=== PATIENT | female | born 1980 | race Caucasian/White ===

== ENCOUNTER 2020-07-25 08:30 | Emergency (ER) | payer OTHER, SELFPAY ==
--- NOTE | 2020-07-25 08:46 | ED_ITS ---
HPI - URI/Sore Throat General Chief Complaint: General Medical Stated Complaint: covid symptoms Time Seen by Provider: 07/25/20 08:45 Source: patient Mode of arrival: ambulatory History of Present Illness HPI Narrative: 40-year-old female with a past medical history of migraines, constipation, presenting to ED complaining of low-grade fever T-max a 100.5?, left ear pain, sore throat, rhinorrhea since yesterday. Also reports dry cough. Denies SOB/CP, sick contacts, nausea/vomiting, LE edema, hearing loss, drainage from ear MD elicited complaint: fever, cough, sore throat, rhinorrhea and nasal baldemar estion Related Data Home Medications Medication Instructions Recorded Confirmed levonorgestrel 20 mcg/24 hours (6 INTRAUTERINE 06/27/20 06/28/20 yrs) 52 mg intrauterine device metformin 500 mg tablet 500 mg PO BID 06/27/20 06/28/20 Previous Rx's Medication Instructions Recorded amitriptyline 25 mg tablet 25 mg PO BEDTIME 90 Days #90 tab 06/27/20 sennosides 8.6 mg-docusate sodium 2 tab-cap PO BEDTIME PRN 30 Days 06/27/20 50 mg capsule #30 cap amoxicillin-pot clavulanate 1 tab PO Q12H 7 Days #14 tab 07/25/20 [Augmentin] Allergies Allergy/AdvReac Type Severity Reaction Status Date / Time shellfish derived Allergy Intermediate HIVES Verified 06/25/20 08:47 [SHELLFISH DERIVED] Review of Systems Review of Systems: Constitutional: No Weight loss, + Fever, +Chills ENT/Mouth: + Ear Pain, + Nasal Congestion, No Sinus Pain, No Hoarseness, + sore throat, + Rhinorrhea, No Swallowing Difficulty Cardiovascular: No Chest Pain, No SOB Respiratory: + Cough, No Sputum, No Wheezing Gastrointestinal: No Nausea, No Vomiting, No Diarrhea, No Constipation, No Abdominal pain Musculoskeletal: No joint pain, + Myalgias, No Joint Swelling Skin: No Skin Lesions, No rash Neuro: No Weakness, No Numbness, No Paresthesias Yes all other systems are reviewed and are negative [facility] Past Medical History Attestation statement: The following information was validated with the patient. Medical History (Updated 07/25/20 @ 09:06 by Haider Lan) Constipation by delayed colonic transit Diabetes mellitus, type 2 Encounter to establish care Headache syndrome Surgical History History of ovarian cyst Family History Family History Father HTN (hypertension) CVD (cardiovascular disease) Diabetes mellitus HIV (human immunodeficiency virus infection) Hx of CABG Mother No problems noted. Brother No problems noted. Sister No problems noted. Son Neuroblastoma Social History Social History Alcohol intake: never Smoking Status: Never smoker Advance Directives: No Advance Directives Information Provided: No Physical Exam Vital Signs: Vital Signs: Last Vital Signs Temp 99.1 F 07/25/20 09:04 Pulse 96 07/25/20 09:04 Resp 16 07/25/20 09:04 BP 118/77 07/25/20 09:04 Pulse Ox 97 07/25/20 09:04 Body Mass Index 24.7 Const: General: cooperative and healthy appearing Orientation/consciousness: patient oriented x3 Limitations: no limitations HENMT: Head: Yes normal to inspection Ears: TM normal on the right and TM abnormal wth effusion and with fluid behind the TM on the left General nose exam: Normal external nose present Face and sinus: Yes normal facial exam Mouth: Normal oral and palatal mucosa present Throat: Yes uvula midline and No peritonsillar mass Eyes: General: appearance normal, both eyes and all related structures EOM: EOMs intact bilaterally Neck: Neck: Yes normal visual inspection, Yes no lymphadenopathy and Yes no meningeal signs Resp: Effort & Inspection: normal respiratory effort Cardio: Rate: regular rate GI: Inspection: Yes normal to inspection Skin: Rashes: no rashes Wounds: no wounds Neuro: General: patient oriented x3 and no meningeal signs Gait exam (Neuro): Normal gait present Extrem: General: Yes normal to inspection MDM - URI/Sore Throat MDM Narrative Medical decision making narrative: On exam VSS, NAD, nontoxic appearing, +L otitis media. Concern for viral syndrome/COVID19 Discharge Plan Discharge Clinical Impression: Acute viral syndrome Otitis media Qualifiers: Otitis media type: unspecified Chronicity: acute Qualified Code(s): H66.90 - Otitis media, unspecified, unspecified ear Patient Disposition: Home, Self-Care Instructions: Ear Infection (ED), Viral Syndrome (ED) Additional Instructions: You have an inner ear infection Augmentin as antibiotic, take as prescribed In addition continue check her temperatures at home, take Tylenol, fevers not result Tylenol take Motrin Your also tested for COVID-19, you need to self isolate until you obtain results Based on your symptoms and history we have sent a COVID-19. Although your RESULT IS PENDING at this time. RESULTS should return within 72 hours. At this time you will be contacted with either NEGATIVE OR POSITIVE results. -Please wait until we contact you for your results. At this time you will be okay for discharge. Please plan for self quarantine for up to 14 days. Do not expose yourself to others. You may not go to work. If testing does come back negative you may return to activities as long as you are no longer having any symptoms for at least 3 days. Please continue to follow cold instructions and wash your hands frequently. You may take Tylenol as directed on the bottle for pain or fever. Patient seen in the emergency department on 02/10/2020 and should be excused from work until negative test results AND until 72 hours without any symptoms AND at least 10 days have passed since symptoms first appeared or since last exposure to COVID-19 positive patient CDC Guidelines for home isolation: - Stay away from others - WEAR A MASK if you are sick AND STAY HOME - Cover your mouth and nose with a tissue when you cough or sneeze. Dispose of tissues in a lined trash can and wash your hands immediately with soap and water for at least 20 seconds. If soap and water are not available, clean hands with alcohol-based hand black studies professor that contains at least 60% alcohol. - Clean your hands often with soap and water for at least 20 seconds - Avoid touching your eyes, nose and mouth with unwashed hands - Do not share dishes, drinking glasses, cups, eating utensils, towels, or bedding with other people in your home. After using these items, wash them thoroughly with soap and water or put in the talent acquisition director. - Clean high-touch surfaces in your isolation area ( sick room and bathroom) every day; let a caregiver clean and disinfect high-touch surfaces in other areas of the home. Clean the area or item with soap and water or another detergent if it is dirty. Then, use a household disinfectant. - Limit contact with pets and animals: If you must care for a pet, wash your hands before and after interacting with them) Prescriptions: New amoxicillin-pot clavulanate [Augmentin] 875-125 mg tablet 1 tab PO Q12H 7 Days Qty: 14 RF: 0 No Action metformin 500 mg tablet 500 mg PO BID RF: 0 Mirena 20 mcg/24 hours (6 yrs) 52 mg intrauterine device intrauterine RF: 0 amitriptyline 25 mg tablet 25 mg PO BEDTIME 90 Days Qty: 90 RF: 0 Senna Plus 8.6-50 mg capsule 2 tab-cap PO BEDTIME PRN (Reason: constipation) 30 Days Qty: 30 RF: 0 Referrals: Adam Hernandez MD [Primary Care Provider] - 2 days (call)
[2020-07-25 09:04] VITALS: BP 118/77; PULSE 96; RESP 16; TEMP 37.3; O2SAT 97; BMI 24.7
[2020-07-25 11:04] LABS: Influenza A PCR NEGATIVE (Negative); Influenza B PCR NEGATIVE (Negative); Resp Syncy Virus RNA Qual PCR NEGATIVE (Negative); SARS COV2 PCR INHOUSE POSITIVE (Negative)
== END 2020-07-25 10:15 | disposition home or self-care (01) ==
PROVIDERS: Physician Assistant; Emergency Provider Emergency Medicine; PCP Internal Medicine
DX: B34.9 Viral infection, unspecified (principal); Z20.828 Contact with and (suspected) exposure to other viral communicable diseases; H66.92 Otitis media, unspecified, left ear; E11.9 Type 2 diabetes mellitus without complications
CPT/HCPCS: 0241U; 99283; U0003

== ENCOUNTER 2020-09-04 09:24 | Outpatient (REF) | payer OTHER, SELFPAY ==
[2020-09-04 11:37] LABS: MANUAL DIFF FLAG NO
[2020-09-04 11:46] LABS: Basophils Percent Auto 0.4 % (0-2); Eosinophils Absolute Auto 0.1 X10*3/uL (0.0-0.4); Eosinophils Percent Auto 0.7 % (0-4); Hematocrit 35.1 % (37-47); Hemoglobin 11.4 g/dl (12.0-16.0); Imm Gran Abs Auto 0.03 X10*3/uL (0.00-0.03); Imm Gran Pct Auto 0.4 % (0.0-0.4); Lymphocytes Absolute Auto 2.3 X10*3/uL (1.2-4.9); Lymphocytes Percent Auto 27.3 % (20-40); Mean Corpuscular HGB Conc 32.5 g/dl (31.0-35.0); Mean Corpuscular Hemoglobin 29.2 pg (27.0-33.0); Mean Corpuscular Volume 89.8 fL (80-98); Mean Platelet Volume 10.7 fL (9.4-12.3); Monocytes Absolute Auto 0.5 X10*3/uL (0.1-1.2); Monocytes Percent Auto 6.2 % (2-11); Neutrophils Absolute Auto 5.5 X10*3/uL (2.0-8.3); Platelet Count 365 X10*3/uL (160-400); Red Blood Count 3.91 X10*6/uL (4.20-5.50); Red Cell Distribution Width 12.6 % (11.0-16.0); White Blood Count 8.5 X10*3/uL (4.8-10.8)
[2020-09-04 12:17] LABS: Estimated Average Glucose 128 mg/dL; Hemoglobin A1c % 6.1 %
[2020-09-04 13:48] LABS: TSH reflex Free T4 2.54 mIU/mL (0.32-4.0)
== END 2020-09-04 09:25 | disposition home or self-care (01) ==
LOC: HO.HMGCLDS 09:24
PROVIDERS: PCP Internal Medicine; Visit Provider Internal Medicine
DX: E11.9 Type 2 diabetes mellitus without complications (principal); K59.01 Slow transit constipation; G44.89 Other headache syndrome; Z76.89 Persons encountering health services in other specified circumstances
CPT/HCPCS: 36415; 83036; 84443; 85025

== ENCOUNTER 2020-12-03 10:18 | Outpatient (REF) | payer OTHER, SELFPAY ==
[2020-12-03 11:25] LABS: MANUAL DIFF FLAG NO
[2020-12-03 11:36] LABS: Basophils Percent Auto 0.6 % (0-2); Eosinophils Absolute Auto 0.1 X10*3/uL (0.0-0.4); Eosinophils Percent Auto 0.8 % (0-4); Hematocrit 38.1 % (37-47); Hemoglobin 12.2 g/dl (12.0-16.0); Imm Gran Abs Auto 0.01 X10*3/uL (0.00-0.03); Imm Gran Pct Auto 0.2 % (0.0-0.4); Lymphocytes Absolute Auto 1.6 X10*3/uL (1.2-4.9); Lymphocytes Percent Auto 25.4 % (20-40); Mean Corpuscular Hemoglobin 29.1 pg (27.0-33.0); Mean Corpuscular Volume 90.9 fL (80-98); Monocytes Absolute Auto 0.4 X10*3/uL (0.1-1.2); Monocytes Percent Auto 5.7 % (2-11); Neutrophils Absolute Auto 4.3 X10*3/uL (2.0-8.3); Neutrophils Percent Auto 67.3 % (45-73); Platelet Count 363 X10*3/uL (160-400); Red Blood Count 4.19 X10*6/uL (4.20-5.50); Red Cell Distribution Width 13.1 % (11.0-16.0); White Blood Count 6.4 X10*3/uL (4.8-10.8)
[2020-12-03 11:51] LABS: Estimated Average Glucose 111 mg/dL; Hemoglobin A1c % 5.5 %
[2020-12-03 12:05] LABS: Alanine Aminotransferase 17 U/L (0-31); Albumin Level 4.3 g/dL (3.5-5.0); Alkaline Phosphatase 54 U/L (39-117); Anion Gap 16 (12-20); Aspartate Amino Transferase 19 U/L (5-31); Bilirubin Direct 0.2 mg/dL (0.0-0.5); Bilirubin Total 0.6 mg/dL (0.0-1.0); Blood Urea Nitrogen 14 mg/dL (9-16); Calcium 9.3 mg/dL (8.4-10.2); Carbon Dioxide 22 mmol/L (22-29); Chloride 105 mmol/L (96-108); Estimated Glomerular Filt Rate > 60; Glucose Random 136 mg/dL (60-115); Potassium 4.6 mmol/L (3.3-5.1); Sodium 138 mmol/L (135-145); Total Protein 7.6 g/dL (6.5-8.0)
[2020-12-03 12:06] LABS: Microalbum/Creatinine Ratio Ur 3.2 ug/mg cr
[2020-12-03 12:16] LABS: TSH reflex Free T4 1.24 uIU/mL (0.32-4.0)
[2020-12-04 06:07] LABS: LDL Cholesterol Direct 102 mg/dL (<100)
== END 2020-12-03 10:19 | disposition home or self-care (01) ==
LOC: HO.HMGCLDS 10:18
PROVIDERS: PCP Internal Medicine; Visit Provider Internal Medicine
DX: E11.9 Type 2 diabetes mellitus without complications (principal); K59.01 Slow transit constipation; G44.89 Other headache syndrome
CPT/HCPCS: 36415; 80048; 80076; 82043; 83036; 83721; 84443; 85025

== ENCOUNTER 2021-05-02 17:08 | Emergency (ER) | payer OTHER, SELFPAY ==
[2021-05-02 17:19] VITALS: BP 117/73; PULSE 68; RESP 18; TEMP 37.3; O2SAT 100; BMI 24.3
[2021-05-02] MEDS: predniSONE 20 MG TABLET 40 MG PO (20:59)
[2021-05-02] MEDS: Azithromycin 500 MG TABLET PO (21:00)
[2021-05-02] MEDS: Ibuprofen 600 MG TABLET PO (21:00)
--- NOTE | 2021-05-02 21:00 | ED_ITS ---
HPI - Ear Problem General Chief complaint: Ear Problems Stated complaint: ear infection Time Seen by Provider: 05/02/21 20:40 Source: patient Mode of arrival: ambulatory Limitations: no limitations History of Present Illness HPI Narrative: 41 years old female came in for evaluation of left ear pain. Patient with a history of recurrence of ear infections in the past, came in with left ear pain for 2 weeks, patient received a course of antibiotic of amoxicillin with no improvement, patient still feel pressure and pain localized to the left ear with no radiation, no dizziness, no fever, no chills. No recent public pool usage. Related Data Home Medications Medication Instructions Recorded Confirmed levonorgestrel 20 mcg/24 hours (6 INTRAUTERINE 06/27/20 02/07/21 yrs) 52 mg intrauterine device (Mirena) sennosides 8.6 mg-docusate sodium 2 tab PO BEDTIME PRN 01/28/21 02/07/21 50 mg tablet metformin ER 500 mg tablet,ext rel 500 mg PO DAILY 02/07/21 02/07/21 24 hr-blood sugar diagnostic strips Previous Rx's Medication Instructions Recorded metformin 500 mg tablet 500 mg PO BID 90 Days #180 tab 09/04/20 amoxicillin 875 mg-potassium 1 tab PO BID 7 Days #14 tab 01/08/21 clavulanate 125 mg tablet azithromycin 500 mg tablet 500 mg PO DAILY 5 Days #5 tab 01/28/21 prednisone 20 mg tablet 20 mg PO .COMPLEX #18 tab 01/28/21 azithromycin 250 mg tablet See Rx Instructions .ROUTE 05/02/21 (Zithromax Z-Lucio) .COMPLEX #6 tab prednisone 20 mg tablet 20 mg PO BID #10 tab 05/02/21 Allergies Allergy/AdvReac Type Severity Reaction Status Date / Time shellfish derived Allergy Intermediate HIVES Verified 05/02/21 17:18 [SHELLFISH DERIVED] Shellfish Allergy Unknown HIVES Uncoded 02/28/21 11:33 Review of Systems Review of Systems: All other systems are reviewed and are negative Constitutional: Reports as per HPI and Reports no additional constitutional complaints Eyes: Reports as per HPI and Reports no additional eye complaints Reports system reviewed and no additional complaints, except as documented Cardiovascular: Reports as per HPI and Reports no additional cardiovascular complaints Respiratory: Reports as per HPI and Reports no additional respiratory complaints Gastrointestinal: Reports as per HPI and Reports no additional gastrointestinal complaints Genitourinary: Reports no additional female genitourinary complaints Musculoskeletal: Reports no additional musculoskeletal complaints Skin/Breast: Reports system reviewed and no additional complaints, except as docu Psychiatric: Reports no additional psychiatric complaints Endocrine: Reports no additional endocrine complaints Hematologic/Lymphatic: Reports no additional hematologic/lymphatic complaints Allergic/Immunologic: Reports no additional allergic/immunologic complaints Reports system reviewed and no additional complaints, except as documented and Reports Abnormal speech present [facility] Past Medical History Medical History Constipation by delayed colonic transit Diabetes mellitus, type 2 Encounter to establish care Headache syndrome Surgical History History of ovarian cyst Family History Family History Father HTN (hypertension) CVD (cardiovascular disease) Diabetes mellitus HIV (human immunodeficiency virus infection) Hx of CABG Mother No problems noted. Brother No problems noted. Sister No problems noted. Son Neuroblastoma Social History Social History Alcohol intake: never Advance Directives: No Advance Directives Information Provided: No Patient : No Physical Exam Vital Signs: Vital Signs: Last Vital Signs Temp 99.2 F 05/02/21 17:19 Pulse 68 05/02/21 17:19 Resp 18 05/02/21 17:19 BP 117/73 05/02/21 17:19 Pulse Ox 100 05/02/21 17:19 Body Mass Index 24.3 Vital signs have been reviewed as appeared to be correct. Blood pressure normal. Heart rate normal. Respiration rate normal. Temperature normal. Oxygen saturation normal. Appearance: Alert. Oriented X3. No acute distress. Head: Normal external exam. Normocephalic. Atraumatic. No Velazquez signs noted. No raccoon eyes noted Eyes: PERRLA. EOMI. Conjunctiva and sclera normal. Eyelids normal. ENT: Left TM was multiple old scars, erythema, clear external auditory canal, Pharynx normal. Uvula midline. Moist mucous membranes. No trismus noted. No drooling noted. No muffled voice noted. Neck: Normal inspection. Neck supple. FROM. No adenopathy. Thyroid Normal. No meningeal signs. No neck mass noted. CVS: Normal heart rate and rhythm. Heart sound normal. No murmurs noted. Pulses normal throughout. Respiratory: No respiratory distress. Painless inspiration. Breath sounds normal. No wheezes/rales/rhonchi noted. Chest nontender. No accessory muscle usage noted or decreased air movement noted. Abdomen: Soft and nontender. Bowel sounds normal in all 4 quadrants. No distention noted. No organomegaly noted. No visible injury noted. Back: No CVA tenderness. Full range of motion noted. Skin: Skin warm and dry. Normal skin color. Normal skin turgor. No rashes/lesions/lacerations noted. Extremities: No lower extremity edema. Extremities exhibit normal range of motion. Extremities nontender. Neuro: Oriented X 3. Cranial nerve exam: II-XII are grossly intact No motor deficit. No sensory deficit. Reflexes normal. Course Course Course Narrative: Assessment and plan. 41-year-old female who is prone to ear infections in the past came in with left ear pain physical exam is consistent with left ear OM. Patient just finished a course of amoxicillin with no results. Start the patient on a Zithromax/4 days of prednisone. Discharge Plan Discharge Clinical Impression: Otitis media Patient Disposition: Home, Self-Care Instructions: Ear Infection (ED) Prescriptions: New azithromycin [Zithromax Z-Lucio] 250 mg tablet See Rx Instructions .ROUTE .COMPLEX Qty: 6 RF: 0 prednisone 20 mg tablet 20 mg PO BID Qty: 10 RF: 0 No Action Mirena 20 mcg/24 hours (6 yrs) 52 mg intrauterine device intrauterine RF: 0 metformin 500 mg tablet 500 mg PO BID 90 Days Qty: 180 RF: 0 amoxicillin-pot clavulanate 875-125 mg tablet 1 tab PO BID 7 Days Qty: 14 RF: 0 sennosides-docusate sodium 8.6-50 mg tablet 2 tab PO BEDTIME PRN (Reason: constipation) RF: 0 azithromycin 500 mg tablet 500 mg PO DAILY 5 Days Qty: 5 RF: 0 prednisone 20 mg tablet 20 mg PO .COMPLEX Qty: 18 RF: 0 metformin-blood sugar diagnost 500 mg combo pack, tablet and strip 500 mg PO DAILY RF: 0 Referrals: Adam Hernandez MD [Primary Care Provider] - 2 days
== END 2021-05-02 21:32 | disposition home or self-care (01) ==
PROVIDERS: Emergency Provider Emergency Medicine; PCP Internal Medicine
DX: H66.92 Otitis media, unspecified, left ear (principal); H92.02 Otalgia, left ear; Z79.899 Other long term (current) drug therapy
CPT/HCPCS: 99283

== ENCOUNTER 2021-05-13 08:05 | Outpatient (REF) | payer OTHER, SELFPAY ==
[2021-05-13 09:40] LABS: Alanine Aminotransferase 18 U/L (0-31); Albumin Level 4.2 g/dL (3.5-5.0); Alkaline Phosphatase 66 U/L (39-117); Anion Gap 14 (12-20); Aspartate Amino Transferase 17 U/L (5-31); Bilirubin Total 0.8 mg/dL (0.0-1.0); Blood Urea Nitrogen 14 mg/dL (9-16); Calcium 9.8 mg/dL (8.4-10.2); Carbon Dioxide 26 mmol/L (22-29); Chloride 105 mmol/L (96-108); Estimated Glomerular Filt Rate > 60; Glucose Random 151 mg/dL (60-115); Potassium 5.2 mmol/L (3.3-5.1); Sodium 140 mmol/L (135-145); Total Protein 7.6 g/dL (6.5-8.0)
[2021-05-13 09:41] LABS: Estimated Average Glucose 126 mg/dL
== END 2021-05-13 08:06 | disposition home or self-care (01) ==
LOC: HO.LAB 08:05
PROVIDERS: PCP Internal Medicine; Visit Provider Internal Medicine
DX: E11.9 Type 2 diabetes mellitus without complications (principal)
CPT/HCPCS: 36415; 80053; 83036

== ENCOUNTER 2022-02-04 10:18 | Outpatient (REF) | payer OTHER, SELFPAY ==
[2022-02-04 11:58] LABS: Estimated Average Glucose 183 mg/dL
[2022-02-04 13:03] LABS: Alanine Aminotransferase 15 U/L (0-31); Albumin Level 4.1 g/dL (3.5-5.0); Alkaline Phosphatase 84 U/L (39-117); Anion Gap 13 (12-20); Aspartate Amino Transferase 19 U/L (5-31); Bilirubin Total 0.5 mg/dL (0.0-1.0); Blood Urea Nitrogen 11 mg/dL (9-16); Calcium 9.4 mg/dL (8.4-10.2); Carbon Dioxide 23 mmol/L (22-29); Chloride 106 mmol/L (96-108); Estimated Glomerular Filt Rate > 60; Glucose Random 195 mg/dL (60-115); Potassium 5.1 mmol/L (3.3-5.1); Sodium 137 mmol/L (135-145); Total Protein 7.7 g/dL (6.5-8.0)
[2022-02-06 09:17] LABS: LDL Cholesterol Direct 145 mg/dL (<100)
== END 2022-02-04 10:19 | disposition home or self-care (01) ==
LOC: HO.HMGCLDS 10:18
PROVIDERS: PCP Internal Medicine; Visit Provider Internal Medicine
DX: E11.9 Type 2 diabetes mellitus without complications (principal)
CPT/HCPCS: 36415; 80053; 83036; 83721

== ENCOUNTER 2022-10-06 10:57 | Outpatient (REF) | payer OTHER, SELFPAY ==
[2022-10-06 14:00] LABS: Estimated Average Glucose 148 mg/dL; Hemoglobin A1c % 6.8 %
[2022-10-06 14:02] LABS: Alanine Aminotransferase 23 U/L (0-31); Albumin Level 4.3 g/dL (3.5-5.0); Alkaline Phosphatase 65 U/L (39-117); Anion Gap 15 (12-20); Aspartate Amino Transferase 14 U/L (5-31); Bilirubin Total 0.8 mg/dL (0.0-1.0); Blood Urea Nitrogen 12 mg/dL (9-16); Calcium 9.8 mg/dL (8.4-10.2); Carbon Dioxide 22 mmol/L (22-29); Chloride 105 mmol/L (96-108); Estimated Glomerular Filt Rate > 60; Glucose Random 129 mg/dL (60-115); Potassium 4.8 mmol/L (3.3-5.1); Sodium 137 mmol/L (135-145); Total Protein 7.5 g/dL (6.5-8.0)
== END 2022-10-06 10:58 | disposition home or self-care (01) ==
LOC: HO.HMGCLDS 10:57
PROVIDERS: PCP Internal Medicine; Visit Provider Internal Medicine
DX: E11.9 Type 2 diabetes mellitus without complications (principal)
CPT/HCPCS: 36415; 80053; 83036

== ENCOUNTER 2023-01-15 09:04 | Outpatient (REF) | payer OTHER, SELFPAY ==
[2023-01-15 15:24] LABS: Influenza A PCR NEGATIVE (Negative); Influenza B PCR NEGATIVE (Negative); Resp Syncy Virus RNA Qual PCR NEGATIVE (Negative); SARS COV2 PCR INHOUSE NEGATIVE (Negative)
== END 2023-01-15 09:05 | disposition home or self-care (01) ==
LOC: HO.LAB 09:04
PROVIDERS: Visit Provider Nurse Practitioner Family
DX: Z20.822 Contact with and (suspected) exposure to COVID-19 (principal); R09.89 Other specified symptoms and signs involving the circulatory and respiratory systems
CPT/HCPCS: 0241U

== ENCOUNTER 2023-03-06 10:56 | Outpatient (AMB) | payer OTHER, SELFPAY ==
--- NOTE | 2023-03-06 11:12 | AM.OFFWIN_ITS ---
Intake Vital Signs 03/06/23 11:15 Height 5 ft 2 in BP 100/60 Blood Pressure Location Lt brachial Position Sitting Pulse 72 Pulse Source Pulse Oximeter Temp 96.8 F Temp Source Temporal Artery Scan Pulse Oximetry (%) 99 Oxygen Delivery Method Room Air Intake Visit Reasons: EP, Sinus infection? (masked)(lobby) Intake Note: Pt is here c/o sinus pressure, headache and stuffy nose for the last three days. Patient Tobacco Use Status: Never used Tobacco Allergies shellfish derived [SHELLFISH DERIVED] Allergy (Intermediate, Verified 03/06/23 11:30) HIVES Seasonal Allergies Allergy (Mild, Verified 03/06/23 11:30) Sneezing Shellfish Allergy (Unknown, Uncoded 03/06/23 11:30) HIVES Medication List - Last Reconciled 03/06/23 by Adrian Martinez MD amitriptyline 10 mg PO BEDTIME 90 days epinephrine IM escitalopram oxalate 20 mg PO DAILY 90 days levonorgestrel (Kyleena) intrauterine DAILY metformin 500 mg PO BID 90 days sumatriptan succinate 50 mg PO ONCE PRN 30 days Do you need a note to return to daycare/school/sports/work: No HPI EP, Sinus infection? (masked)(lobby) HPI Details Patient presents for a sick visit. Reporting symptoms of sinus congestion, sore throat and difficulty swallowing. Low-grade fever. No family member is sick. No recent travel. Patient reports symptoms of malaise and fatigue. [facility] Medical History Constipation by delayed colonic transit Diabetes mellitus, type 2 Encounter to establish care Headache syndrome Surgical History History of ovarian cyst Family History Father HTN (hypertension) CVD (cardiovascular disease) Diabetes mellitus HIV (human immunodeficiency virus infection) Hx of CABG Substance use disorder Mother Mental health disorder Brother Substance use disorder Sister No problems noted. Son Neuroblastoma Mental health disorder Paternal Aunt Substance use disorder Paternal Uncle Substance use disorder Social History Housing: House Alcohol intake: never Patient Tobacco Use Status: Never used Tobacco e-Cigarette/Vaping Use: Never Used service: No Current occupational status: employed Cognitive needs: No Hearing needs: No Vision needs: Yes Physical Exam Vital Signs: Last Vital Signs Temp 96.8 F 03/06/23 11:15 Pulse 72 03/06/23 11:15 BP 100/60 03/06/23 11:15 Pulse Ox 99 03/06/23 11:15 Oxygen Delivery Method Room Air 03/06/23 11:15 Const General: cooperative and healthy appearing Nutritional Appearance: well nourished Orientation/consciousness: patient oriented x3 Limitations: no limitations HEENT Head: Yes normal to inspection Eyes General: appearance normal, both eyes and all related structures Neck Neck: Yes normal visual inspection Chest Chest palpation & inspection: normal palpation of entire chest wall Resp Effort & Inspection: normal respiratory effort Neuro General: patient oriented x3 Assessment & Plan Assessment & Plan (1) Upper respiratory tract infection: Code(s): J06.9 - Acute upper respiratory infection, unspecified Plan: Antibiotics ordered. Increase fluid intake. Tylenol for aches and pains. If symptoms worsen, follow-up here for a recheck. Coding Level of Care Code Est Pt Level 3 (54961) Diagnoses Upper respiratory tract infection J06.9
[2023-03-06 11:15] VITALS: BP 100/60; PULSE 72; TEMP 36; O2SAT 99
== END 2023-03-06 11:35 | disposition home or self-care (01) ==
PROVIDERS: PCP Internal Medicine; Visit Provider Internal Medicine
DX: J06.9 Acute upper respiratory infection, unspecified (principal)
CPT/HCPCS: 99213

== ENCOUNTER 2023-05-05 09:06 | Outpatient (AMB) | payer OTHER, SELFPAY ==
--- NOTE | 2023-05-05 09:04 | MHC.PC.OV ---
Intake Visit Reasons: 6 month follow up [phone] Allergies shellfish derived [SHELLFISH DERIVED] Allergy (Intermediate, Verified 05/05/23 09:04) HIVES Seasonal Allergies Allergy (Mild, Verified 05/05/23 09:04) Sneezing Shellfish Allergy (Unknown, Uncoded 03/06/23 11:30) HIVES Medication List - Last Reconciled 05/05/23 by Adam Hernandez MD amitriptyline 10 mg PO BEDTIME 90 days epinephrine IM escitalopram oxalate 20 mg PO DAILY 90 days levonorgestrel (Kyleena) intrauterine DAILY metformin 500 mg PO BID 90 days sumatriptan succinate 50 mg PO ONCE PRN 30 days Tobacco use date assessed: 05/05/23 Dental Screening Dental Screen Date: 05/05/23 Did you have a dental visit in the last 12 months?: Yes Did you have a dental problem in the last 6 months where you did not have access to dental care?: No Was dental information given to patient?: Patient has dentist HPI 6 month follow up [phone] HPI Details Patient is 43-year-old female this is a tele medicine we do follow-up Depression/anxiety: Patient is doing well with Lexapro 10 mg she has also started counseling every week which is helping. Migraine headaches are stable patient is on amitriptyline 10 mg at night and she also have a script for sumatriptan for acute headache. Diabetes mellitus: Continue metformin 500 b.i.d. hemoglobin A1c was controlled last visit Patient is due for labs, order was placed in January patient notified. Follow-up 4 months [facility] Medical History Diabetes mellitus, type 2 Constipation by delayed colonic transit Headache syndrome Encounter to establish care Surgical History History of ovarian cyst Family History Father HTN (hypertension) CVD (cardiovascular disease) Diabetes mellitus HIV (human immunodeficiency virus infection) Hx of CABG Substance use disorder Mother Mental health disorder Brother Substance use disorder Sister No problems noted. Son Neuroblastoma Mental health disorder Paternal Aunt Substance use disorder Paternal Uncle Substance use disorder Social History Housing: House Alcohol intake: never Patient Tobacco Use Status: Never used Tobacco e-Cigarette/Vaping Use: Never Used service: No Current occupational status: employed Cognitive needs: No Hearing needs: No Vision needs: Yes Questionnaire Thrive Questionnaire Date Thrive assessed: 10/07/22 AUDIT C Alcohol Use Questionnaire (AUDIT-C) 1. How often do you have a drink containing alcohol?: Never 3. How often do you have six or more drinks on one occasion?: Never Total Score: 0 Score Reviewed/Action Taken: Yes EDITA-7 AMB Questionnaire EDITA-7 Date EDITA - 7 assessed: 10/07/22 Source: Developed by Drs. Clifford Parish, Mary Jo dAorno, Martin Santizo and colleagues, with an educational néstor from [employer]. Review of Systems Const Denies chills and Denies fever(s) ENT Denies epistaxis and Denies nasal discharge Card Denies chest pain Resp Denies chest congestion, Denies cough and Denies hemoptysis GI Denies diarrhea and Denies nausea Skin/Breast Denies rash Neuro Reports no additional complaints Psych Reports no additional complaints Endo Reports no additional complaints Physical exam (Primary Care) Tobacco/Smoking Status: Tobacco use Status Tobacco use date assessed 05/05/23 05/05/23 09:06 Patient Tobacco Use Status Never used Tobacco 05/05/23 09:06 e-Cigarette/Vaping Use Never Used 05/05/23 09:06 Thrive Assessment: Date of Thrive Assessment Date Thrive assessed 10/07/22 05/05/23 09:06 Telehealth Telehealth Location of provider rendering services: practice address Location of patient: address on file Patient Identification confirmed using: Name, : Yes Telehealth method: video Patient verbally consented to treatment: Yes Patient verbally consented to billing insurance company: Yes Patient informed of any privacy concerns related to visit: Yes Minutes spent on Phone/Video with Pt.: 14 Assessment and Plan Assessment & Plan (1) Type 2 diabetes mellitus: Code(s): E11.9 - Type 2 diabetes mellitus without complications (2) Major depressive disorder, severe: Code(s): F32.2 - Major depressive disorder, single episode, severe without psychotic features (3) Migraine headache with aura: Code(s): G43.109 - Migraine with aura, not intractable, without status migrainosus Plan Patient is 43-year-old female this is a tele medicine we do follow-up Depression/anxiety: Patient is doing well with Lexapro 10 mg she has also started counseling every week which is helping. Migraine headaches are stable patient is on amitriptyline 10 mg at night and she also have a script for sumatriptan for acute headache. Diabetes mellitus: Continue metformin 500 b.i.d. hemoglobin A1c was controlled last visit Patient is due for labs, order was placed in January patient notified. Follow-up 4 months Medications: Changed From escitalopram oxalate 20 mg PO DAILY 90 days 90 tabs 0RF To escitalopram oxalate 10 mg PO DAILY 90 tabs 0RF 90 days Coding Level of Care Code Tele Est Pt Level 3 (49145) Diagnoses Type 2 diabetes mellitus E11.9 Major depressive disorder, severe F32.2 Migraine headache with aura G43.109
== END 2023-05-05 14:52 | disposition home or self-care (01) ==
LOC: HO.HMGC 09:06
PROVIDERS: PCP Internal Medicine; Visit Provider Internal Medicine
DX: E11.9 Type 2 diabetes mellitus without complications (principal); F32.2 Major depressive disorder, single episode, severe without psychotic features; G43.109 Migraine with aura, not intractable, without status migrainosus
CPT/HCPCS: 99213

== ENCOUNTER 2023-06-05 10:07 | Outpatient (AMB) | payer OTHER, SELFPAY ==
[2023-06-05 11:20] VITALS: BP 118/70; PULSE 64; TEMP 36; O2SAT 99; BMI 27.8
--- NOTE | 2023-06-05 11:20 | AM.OFFWIN_ITS ---
Intake Vital Signs 06/05/23 11:20 Height 5 ft 2 in Weight 152 lb BMI 27.8 BP 118/70 Blood Pressure Location Lt brachial Position Sitting Pulse 64 Pulse Source Pulse Oximeter Temp 96.8 F Temp Source Temporal Artery Scan Pulse Oximetry (%) 99 Oxygen Delivery Method Room Air Intake Visit Reasons: EP-Flu?[phone] Intake Note: pt is here for c.o cough, back pain, stuffy nose Patient Tobacco Use Status: Never used Tobacco Allergies shellfish derived [SHELLFISH DERIVED] Allergy (Intermediate, Verified 06/05/23 11:51) HIVES Seasonal Allergies Allergy (Mild, Verified 06/05/23 11:51) Sneezing Shellfish Allergy (Unknown, Uncoded 06/05/23 11:51) HIVES Medication List - Last Reconciled 06/05/23 by Adrian Martinez MD amitriptyline 10 mg PO BEDTIME 90 days epinephrine IM escitalopram oxalate 10 mg PO DAILY 90 days levonorgestrel (Kyleena) intrauterine DAILY metformin 500 mg PO BID 90 days sumatriptan succinate 50 mg PO ONCE PRN 30 days Do you need a note to return to daycare/school/sports/work: Yes HPI EP-Flu?[phone] HPI Details Patient presents for a sick visit. Reporting symptoms of sinus congestion, sore throat and difficulty swallowing. Low-grade fever. No family member is sick. No recent travel. Patient reports symptoms of malaise and fatigue. [facility] Medical History (Updated 06/05/23 @ 11:52 by Adrian Martinez MD) Upper respiratory tract infection Diabetes mellitus, type 2 Constipation by delayed colonic transit Headache syndrome Encounter to establish care Surgical History History of ovarian cyst Family History Father HTN (hypertension) CVD (cardiovascular disease) Diabetes mellitus HIV (human immunodeficiency virus infection) Hx of CABG Substance use disorder Mother Mental health disorder Brother Substance use disorder Sister No problems noted. Son Neuroblastoma Mental health disorder Paternal Aunt Substance use disorder Paternal Uncle Substance use disorder Social History Housing: House Alcohol intake: never Patient Tobacco Use Status: Never used Tobacco e-Cigarette/Vaping Use: Never Used service: No Current occupational status: employed Cognitive needs: No Hearing needs: No Vision needs: Yes Physical Exam Vital Signs: Last Vital Signs Temp 96.8 F 06/05/23 11:20 Pulse 64 06/05/23 11:20 BP 118/70 06/05/23 11:20 Pulse Ox 99 06/05/23 11:20 Oxygen Delivery Method Room Air 06/05/23 11:20 BMI result Body Mass Index 27.8 Const General: cooperative and healthy appearing Nutritional Appearance: well nourished Orientation/consciousness: patient oriented x3 Limitations: no limitations HEENT Head: Yes normal to inspection Eyes General: appearance normal, both eyes and all related structures Neck Neck: Yes normal visual inspection Chest Chest palpation & inspection: normal palpation of entire chest wall Resp Effort & Inspection: normal respiratory effort Neuro General: patient oriented x3 Assessment & Plan Assessment & Plan (1) Upper respiratory tract infection: Code(s): J06.9 - Acute upper respiratory infection, unspecified Plan: Antibiotics ordered. Increase fluid intake. Tylenol for aches and pains. If symptoms worsen, follow-up here for a recheck. Coding Level of Care Code Est Pt Level 3 (73982) Diagnoses Upper respiratory tract infection J06.9
== END 2023-06-05 12:23 | disposition home or self-care (01) ==
PROVIDERS: PCP Internal Medicine; Visit Provider Internal Medicine
DX: J06.9 Acute upper respiratory infection, unspecified (principal)
CPT/HCPCS: 99213

== ENCOUNTER 2023-08-07 13:08 | Outpatient (AMB) | payer OTHER, SELFPAY ==
[2023-08-07 14:30] VITALS: BP 122/72; PULSE 74; O2SAT 100; BMI 26.5
--- NOTE | 2023-08-07 14:30 | MHC.OFFWIV ---
Intake Vital Signs 08/07/23 14:30 Height 5 ft 2 in Weight 145 lb BMI 26.5 BP 122/72 Blood Pressure Location Lt brachial Position Sitting Pulse 74 Pulse Source Pulse Oximeter Pulse Oximetry (%) 100 Oxygen Delivery Method Room Air Intake Visit Reasons: EST/sore throat([phone]) Intake Note: pt is here today for sore throat started yesterday Patient Tobacco Use Status: Never used Tobacco Allergies shellfish derived [SHELLFISH DERIVED] Allergy (Intermediate, Verified 08/07/23 15:22) HIVES Seasonal Allergies Allergy (Mild, Verified 08/07/23 15:22) Sneezing Shellfish Allergy (Unknown, Uncoded 08/07/23 15:22) HIVES Medication List - Last Reconciled 08/07/23 by Adrian Martinez MD amitriptyline 10 mg PO BEDTIME 90 days azithromycin take 500 mg today (day 1), then 250 mg for 4 days (days 2-5) PO epinephrine IM escitalopram oxalate 10 mg PO DAILY 90 days levonorgestrel (Kyleena) intrauterine DAILY metformin 500 mg PO BID 90 days sumatriptan succinate 50 mg PO ONCE PRN 30 days Do you need a note to return to daycare/school/sports/work: No HPI EST/sore throat([phone]) HPI Details Patient presents for a sick visit. Reporting symptoms of sinus congestion, sore throat and difficulty swallowing. Low-grade fever. No family member is sick. No recent travel. Patient reports symptoms of malaise and fatigue. [facility] Medical History (Updated 06/05/23 @ 11:52 by Adrian Martinez MD) Upper respiratory tract infection Diabetes mellitus, type 2 Constipation by delayed colonic transit Headache syndrome Encounter to establish care Surgical History History of ovarian cyst Family History Father HTN (hypertension) CVD (cardiovascular disease) Diabetes mellitus HIV (human immunodeficiency virus infection) Hx of CABG Substance use disorder Mother Mental health disorder Brother Substance use disorder Sister No problems noted. Son Neuroblastoma Mental health disorder Paternal Aunt Substance use disorder Paternal Uncle Substance use disorder Social History Housing: House Alcohol intake: never Patient Tobacco Use Status: Never used Tobacco e-Cigarette/Vaping Use: Never Used service: No Current occupational status: employed Cognitive needs: No Hearing needs: No Vision needs: Yes Physical Exam Vital Signs: Last Vital Signs Pulse 74 08/07/23 14:30 BP 122/72 08/07/23 14:30 Pulse Ox 100 08/07/23 14:30 Oxygen Delivery Method Room Air 08/07/23 14:30 BMI result Body Mass Index 26.5 Const General: cooperative and healthy appearing Nutritional Appearance: well nourished Orientation/consciousness: patient oriented x3 Limitations: no limitations HEENT Head: Yes normal to inspection Eyes General: appearance normal, both eyes and all related structures Neck Neck: Yes normal visual inspection Chest Chest palpation & inspection: normal palpation of entire chest wall Resp Effort & Inspection: normal respiratory effort Neuro General: patient oriented x3 Assessment & Plan Assessment & Plan (1) Upper respiratory tract infection: Code(s): J06.9 - Acute upper respiratory infection, unspecified Plan: Antibiotics ordered. Increase fluid intake. Tylenol for aches and pains. If symptoms worsen, follow-up here for a recheck. Medications: Refilled azithromycin take 500 mg today (day 1), then 250 mg for 4 days (days 2-5) PO 6 tabs 0RF Coding Level of Care Code Est Pt Level 3 (43242) Diagnoses Upper respiratory tract infection J06.9
== END 2023-08-07 15:30 | disposition home or self-care (01) ==
PROVIDERS: PCP Internal Medicine; Visit Provider Internal Medicine
DX: J06.9 Acute upper respiratory infection, unspecified (principal); J02.9 Acute pharyngitis, unspecified
CPT/HCPCS: 87880; 99213

== ENCOUNTER 2024-01-13 08:09 | Outpatient (AMB) | payer OTHER, SELFPAY ==
[2024-01-13 08:28] VITALS: BP 120/76; PULSE 67; TEMP 36.6; O2SAT 99; BMI 25.4
--- NOTE | 2024-01-13 08:28 | AM.OFFWIN_ITS ---
Intake Vital Signs 01/13/24 08:28 Height 5 ft 2 in Weight 139 lb BMI 25.4 BP 120/76 Blood Pressure Location Lt brachial Position Sitting Pulse 67 Pulse Source Pulse Oximeter Temp 97.9 F Temp Source Temporal Artery Scan Pulse Oximetry (%) 99 Oxygen Delivery Method Room Air Intake Visit Reasons: EP sore throat, chest, ear [phone] Intake Note: pt is here today for sore throat chest ear discomfort started thursday Patient Tobacco Use Status: Never used Tobacco Allergies shellfish derived [SHELLFISH DERIVED] Allergy (Intermediate, Verified 01/13/24 08:30) HIVES Seasonal Allergies Allergy (Mild, Verified 01/13/24 08:30) Sneezing Shellfish Allergy (Unknown, Uncoded 08/07/23 15:22) HIVES Do you need a note to return to daycare/school/sports/work: Yes HPI HPI Comments History of Present Illness Details 43 y/o female patient who presents to [facility] in clinic with c/o cough and sore throat since Sat. Denies fevers, chills, nausea or vomiting. [facility] Medical History (Updated 01/13/24 @ 09:12 by Tia Simpson NP) Sore throat Upper respiratory tract infection Diabetes mellitus, type 2 Constipation by delayed colonic transit Headache syndrome Encounter to establish care Surgical History History of ovarian cyst Family History Father HTN (hypertension) CVD (cardiovascular disease) Diabetes mellitus HIV (human immunodeficiency virus infection) Hx of CABG Substance use disorder Mother Mental health disorder Brother Substance use disorder Sister No problems noted. Son Neuroblastoma Mental health disorder Paternal Aunt Substance use disorder Paternal Uncle Substance use disorder Social History Housing: House Alcohol intake: never Patient Tobacco Use Status: Never used Tobacco e-Cigarette/Vaping Use: Never Used service: No Current occupational status: employed Cognitive needs: No Hearing needs: No Vision needs: Yes Review of Systems Const All systems reviewed & are unremarkable except as noted in HPI and below Physical Exam Vital Signs: Last Vital Signs Temp 97.9 F 01/13/24 08:28 Pulse 67 01/13/24 08:28 BP 120/76 01/13/24 08:28 Pulse Ox 99 01/13/24 08:28 Oxygen Delivery Method Room Air 01/13/24 08:28 BMI result Body Mass Index 25.4 Const General: comfortable and no acute distress Orientation/consciousness: patient oriented x3 HEENT Head: Yes normocephalic Ears: external ears normal and TM's normal bilaterally General nose exam: Normal nasal mucous membranes and turbinates present Face and sinus: Yes sinuses nontender Mouth: moist mucous membranes Throat: Yes posterior oropharynx normal and Yes uvula midline Resp Effort & Inspection: normal respiratory effort, able to speak in complete s entences, no audible wheezes and Actively coughing Auscultation: clear to auscultation bilaterally, no crackles, no rales, no rhonchi and no wheezes Cardio Rate: regular rate Rhythm: regular rhythm Neuro General: patient oriented x3 Results AMB Rapid Strep AMB Rapid Strep Negative Last Edit by Carly Parra MA on 01/13/24 09:08 Results Reviewed Results Reviewed: Laboratory Last Values Strep Scn Rapid Clinic Negative 01/13/24 09:08 Assessment & Plan Assessment & Plan (1) Upper respiratory tract infection: Code(s): J06.9 - Acute upper respiratory infection, unspecified Qualifiers: URI type: acute nasopharyngitis (common cold) Qualified Code(s): J00 - Acute nasopharyngitis [common cold] Plan: - OTC cough remedies - Rest - Hydrate well with warm fluids - Acetaminophen for pain relief. Medications: New bviyzagmetrhy-EV-uulzdlyyvon 5-10-100 mg/5 mL (Adult Robitussin Peak Cold M-S) 10 mL PO Q4H PRN 237 mL 0RF cold symptoms J00 - Acute nasopharyngitis [common cold], R05.9 - Cough, unspecified benzonatate 100 mg PO TID 30 caps 0RF J00 - Acute nasopharyngitis [common cold], R05.9 - Cough, unspecified Coding Level of Care Code Est Pt Level 3 (37789) Diagnoses Acute nasopharyngitis J00 URI type: acute nasopharyngitis (common cold)
== END 2024-01-13 09:20 | disposition home or self-care (01) ==
PROVIDERS: PCP Internal Medicine; Visit Provider Nurse Practitioner Family
DX: J00 Acute nasopharyngitis [common cold] (principal)
CPT/HCPCS: 99213

== ENCOUNTER 2024-02-09 13:12 | Outpatient (AMB) | payer OTHER, SELFPAY ==
[2024-02-09 13:15] VITALS: BP 120/80; PULSE 68; O2SAT 98; BMI 25.1
--- NOTE | 2024-02-09 13:15 | MHC.PC.OV ---
Vital Signs 02/09/24 13:15 Height 5 ft 2 in Weight 137 lb 6 oz BMI 25.1 BP 120/80 Blood Pressure Location Rt brachial Position Sitting Pulse 68 Pulse Source Pulse Oximeter Pulse Oximetry (%) 98 Oxygen Delivery Method Room Air Intake Visit Reasons: Annual PE Allergies shellfish derived [SHELLFISH DERIVED] Allergy (Intermediate, Verified 02/09/24 13:17) HIVES Seasonal Allergies Allergy (Mild, Verified 02/09/24 13:17) Sneezing Shellfish Allergy (Unknown, Uncoded 08/07/23 15:22) HIVES Medication List - Last Reconciled 02/09/24 by Adam Hernandez MD amitriptyline 10 mg PO BEDTIME 90 days epinephrine IM metformin 500 mg PO BID 90 days sumatriptan succinate 50 mg PO ONCE PRN 30 days Tobacco use date assessed: 02/09/24 Dental Screening Dental Screen Date: 02/09/24 Did you have a dental visit in the last 12 months?: No Did you have a dental problem in the last 6 months where you did not have access to dental care?: No Was dental information given to patient?: No HPI Annual PE HPI Details Patient is a 43-year-old female physical examination Patient has stopped taking Lexapro that she was taking for the management of depression and anxiety She has started therapy and feeling better. Migraine headaches are stable, need a refill amitriptyline and sumatriptan. Mammogram is coming up in June along with OBGYN visit with Nicolette. IUD was removed last visit as she continued to have ovarian cyst because of that Currently patient is on Depo injection every 3 months. Order placed to be done fasting patient is diabetic so far hemoglobin A1c has been in 6 range Follow-up 6 months for diabetes and migraine headache 1 year for physical examination Depending on lab report she might need to be seen earlier. [facility] Medical History Sore throat Upper respiratory tract infection Diabetes mellitus, type 2 Constipation by delayed colonic transit Headache syndrome Encounter to establish care Surgical History History of ovarian cyst Family History Father HTN (hypertension) CVD (cardiovascular disease) Diabetes mellitus HIV (human immunodeficiency virus infection) Hx of CABG Substance use disorder Mother Mental health disorder Brother Substance use disorder Sister No problems noted. Son Neuroblastoma Mental health disorder Paternal Aunt Substance use disorder Paternal Uncle Substance use disorder Social History Housing: House Alcohol intake: never Patient Tobacco Use Status: Never used Tobacco e-Cigarette/Vaping Use: Never Used service: No Current occupational status: employed Cognitive needs: No Hearing needs: No Vision needs: Yes Questionnaire Thrive Questionnaire Date Thrive assessed: 10/07/22 AUDIT C Alcohol Use Questionnaire (AUDIT-C) 1. How often do you have a drink containing alcohol?: Never 3. How often do you have six or more drinks on one occasion?: Never Total Score: 0 Score Reviewed/Action Taken: Yes EDTIA-7 AMB Questionnaire EDITA-7 Date EDITA - 7 assessed: 10/07/22 Source: Developed by Drs. Clifford Parish, Mary Jo Adorno, Martin Santizo and colleagues, with an educational néstor from [employer]. Review of Systems Const Denies chills, Denies fever(s) and Denies headache(s) Eyes Denies blurry vision ENT Denies headache(s), Denies nasal discharge, Denies nasal obstruction, Denies odynophagia and Denies sinus pain Card Denies chest pain at rest and Denies chest pain with activity Resp Denies cough and Denies hemoptysis GI Denies diarrhea, Denies odynophagia, Denies vomiting and Denies hematemesis Reports as per HPI Musc Denies abnormal gait Skin/Breast Reports as per HPI Neuro Denies Neuro-related abnormal movements, Denies Abnormal speech present, Denies abnormal gait, Denies headache(s) and Denies Sensory deficit (Neuro) Psych Denies mood swings and Denies paranoia Endo Reports as per HPI Julián/Lymph Reports as per HPI Aller/Immun Reports as per HPI Physical exam (Primary Care) Vital Signs: Last Vital Signs Pulse 68 02/09/24 13:15 BP 120/80 02/09/24 13:15 Pulse Ox 98 02/09/24 13:15 Oxygen Delivery Method Room Air 02/09/24 13:15 BMI result Body Mass Index 25.1 Tobacco/Smoking Status: Tobacco use Status Tobacco use date assessed 02/09/24 02/09/24 13:18 Patient Tobacco Use Status Never used Tobacco 02/09/24 13:18 e-Cigarette/Vaping Use Never Used 02/09/24 13:18 Thrive Assessment: Date of Thrive Assessment Date Thrive assessed 10/07/22 02/09/24 13:18 Const General: cooperative, comfortable and no acute distress Orientation/consciousness: patient oriented x3 HENMT Head: Yes normocephalic and Yes atraumatic Eyes General: appearance normal, both eyes and all related structures Pupils: Equal, round and reactive pupils present EOM: EOMs intact bilaterally Neck Neck: Yes supple and No lymphadenopathy Thyroid: Thyroid normal Lymphatic: no lymphadenopathy noted Resp Effort & Inspection: normal respiratory effort and able to speak in complete sentences Auscultation: clear to auscultation bilaterally Cardio Heart sounds: S1 normal heart sound present and S2 normal heart sound present GI Palpation (GI): Soft to palpation and nontender Auscultation: normal bowel sounds General: Yes no CVA tenderness Back/Spine/Pelvis Back: no CVA tenderness Skin General skin exam: elasticity normal and turgor normal Neuro General: patient oriented x3 and gait normal Cranial nerves: Yes Equal, round and reactive pupils present Speech: No Abnormal speech present Sensory Exam: No Sensory deficit (Neuro) Coordination: tandem gait normal and Romberg test negative Extrem General: Yes normal exam except as noted and No edema Assessment and Plan Assessment & Plan (1) Adult general medical examination: Code(s): Z00.00 - Encounter for general adult medical examination without abnormal findings (2) Migraine headache with aura: Code(s): G43.109 - Migraine with aura, not intractable, without status migrainosus Qualifiers: Status migrainosus presence: without status migrainosus Intractability: intractable Qualified Code(s): G43.119 - Migraine with aura, intractable, without status migrainosus (3) Type 2 diabetes mellitus: Code(s): E11.9 - Type 2 diabetes mellitus without complications Qualifiers: Diabetes mellitus detention insulin use: without detention use Diabetes mellitus complication status: with other specified complication Qualified Code(s): E11.69 - Type 2 diabetes mellitus with other specified complication Plan Patient is a 43-year-old female physical examination Patient has stopped taking Lexapro that she was taking for the management of depression and anxiety She has started therapy and feeling better. Migraine headaches are stable, need a refill amitriptyline and sumatriptan. Mammogram is coming up in June along with OBGYN visit with Nicolette. IUD was removed last visit as she continued to have ovarian cyst because of that Currently patient is on Depo injection every 3 months. Order placed to be done fasting patient is diabetic so far hemoglobin A1c has been in 6 range Follow-up 6 months for diabetes and migraine headache 1 year for physical examination Depending on lab report she might need to be seen earlier. Orders: Orders TSH reflex Free T4 Today E11.9 - Type 2 diabetes mellitus without complications, G43.109 - Migraine with aura, not intractable, without status migrainosus, Z00.01 - Encounter for general adult medical examination with abnormal findings Hemoglobin A1c Today E11.9 - Type 2 diabetes mellitus without complications, G43.109 - Migraine with aura, not intractable, without status migrainosus, Z00.01 - Encounter for general adult medical examination with abnormal findings Microalbumin, Random (w Creat) Today E11.9 - Type 2 diabetes mellitus without complications, G43.109 - Migraine with aura, not intractable, without status migrainosus, Z00.01 - Encounter for general adult medical examination with abnormal findings Complete Blood Count Auto Diff Today E11.9 - Type 2 diabetes mellitus without complications, G43.109 - Migraine with aura, not intractable, without status migrainosus, Z00.01 - Encounter for general adult medical examination with abnormal findings Comprehensive Robert. Panel Fast Today E11.9 - Type 2 diabetes mellitus without complications, G43.109 - Migraine with aura, not intractable, without status migrainosus, Z00.01 - Encounter for general adult medical examination with abnormal findings Lipid Panel Today E11.9 - Type 2 diabetes mellitus without complications, G43.109 - Migraine with aura, not intractable, without status migrainosus, Z00.01 - Encounter for general adult medical examination with abnormal findings Vitamin D 25-OH (D2 and D3) Today E11.9 - Type 2 diabetes mellitus without complications, G43.109 - Migraine with aura, not intractable, without status migrainosus, Z00.01 - Encounter for general adult medical examination with abnormal findings Coding Level of Care Code Est Pt Prev Care 40-64y(66967) Diagnoses Adult general medical examination Z00.00 Intractable migraine with aura without status migrainosus G43.119 Status migrainosus presence: without status migrainosus Intractability: intractable Type 2 diabetes mellitus with other specified complication, without long-term current use of insulin E11.69 Diabetes mellitus long term acute care registered nurse insulin use: without long term acute care registered nurse use Diabetes mellitus complication status: with other specified complication
== END 2024-02-09 13:47 | disposition home or self-care (01) ==
PROVIDERS: PCP Internal Medicine; Visit Provider Internal Medicine
DX: Z00.00 Encounter for general adult medical examination without abnormal findings (principal); G43.119 Migraine with aura, intractable, without status migrainosus; E11.69 Type 2 diabetes mellitus with other specified complication
CPT/HCPCS: 99396

== ENCOUNTER 2024-02-10 09:23 | Outpatient (REF) | payer OTHER, SELFPAY ==
[2024-02-10 11:09] LABS: MANUAL DIFF FLAG NO
[2024-02-10 11:30] LABS: Basophils Absolute Auto 0.1 X10*3/uL (0.0-0.2); Basophils Percent Auto 0.7 % (0-2); Eosinophils Percent Auto 0.3 % (0-4); Hematocrit 38.5 % (37.0-47.0); Hemoglobin 12.8 g/dl (12.0-16.0); Imm Gran Abs Auto 0.03 X10*3/uL (0.00-0.03); Imm Gran Pct Auto 0.4 % (0.0-0.4); Lymphocytes Percent Auto 27.3 % (20-40); Mean Corpuscular HGB Conc 33.2 g/dl (31.0-35.0); Mean Corpuscular Hemoglobin 29.8 pg (27.0-33.0); Mean Corpuscular Volume 89.7 fL (80.0-98.0); Monocytes Absolute Auto 0.4 X10*3/uL (0.1-1.2); Monocytes Percent Auto 5.5 % (2-11); Neutrophils Absolute Auto 4.8 x10*3/uL (2.0-8.3); Neutrophils Percent Auto 65.8 % (45-73); Platelet Count 389 X10*3/uL (160-400); Red Blood Count 4.29 X10*6/uL (4.20-5.50); White Blood Count 7.3 X10*3/uL (4.8-10.8)
[2024-02-10 11:40] LABS: Estimated Average Glucose 169 mg/dL; Hemoglobin A1c % 7.5 % (<6.0)
[2024-02-10 12:03] LABS: Alanine Aminotransferase 11 U/L (0-31); Albumin Level 4.5 g/dL (3.5-5.0); Alkaline Phosphatase 61 U/L (39-117); Anion Gap 13 (12-20); Aspartate Amino Transferase 12 U/L (5-31); Bilirubin Total 0.6 mg/dL (0.0-1.0); Blood Urea Nitrogen 11 mg/dL (9-16); Calcium 9.9 mg/dL (8.4-10.2); Carbon Dioxide 24 mmol/L (22-29); Chloride 107 mmol/L (96-108); Cholesterol 172 mg/dL (<200); Estimated Glomerular Filt Rate > 60; Glucose Fasting 178 mg/dL (60-99); HDL Cholesterol 36 mg/dL (>40); LDL Cholesterol Calculated 117 mg/dL (<100); Potassium 4.4 mmol/L (3.3-5.1); Sodium 140 mmol/L (135-145); Total Protein 8.3 g/dL (6.5-8.0); Triglycerides 98 mg/dL (<150)
[2024-02-10 12:35] LABS: Creatinine Urine 278.55 mg/dL; Microalbum/Creatinine Ratio Ur 5.3 ug/mg cr (<30)
[2024-02-14 17:04] LABS: Vitamin D 25-OH, D2 <4 ng/mL; Vitamin D 25-OH, D3 19 ng/mL; Vitamin D 25-OH, Total 19 ng/mL (30-100)
== END 2024-02-10 09:24 | disposition home or self-care (01) ==
LOC: HO.HMGCLDS 09:23
PROVIDERS: PCP Internal Medicine; Visit Provider Internal Medicine
DX: Z00.01 Encounter for general adult medical examination with abnormal findings (principal); G43.109 Migraine with aura, not intractable, without status migrainosus; E11.9 Type 2 diabetes mellitus without complications
CPT/HCPCS: 36415; 80053; 80061; 82043; 82306; 82570; 83036; 84443; 85025

== ENCOUNTER 2024-03-09 08:31 | Outpatient (AMB) | payer OTHER, SELFPAY ==
--- NOTE | 2024-03-09 08:53 | MHC.OFFWIV ---
Intake Vital Signs 03/09/24 08:58 Height 5 ft 2 in BP 120/78 Blood Pressure Location Lt brachial Position Sitting Pulse 74 Pulse Source Pulse Oximeter Temp 98.4 F Temp Source Oral Pulse Oximetry (%) 97 Intake Visit Reasons: EP sore throat, diff swallowing [phone] Intake Note: Patient here for sinus pressure and congestion that has been present since Thursday evening. patient states she had a sore throat but it went away Patient Tobacco Use Status: Never used Tobacco Allergies shellfish derived [SHELLFISH DERIVED] Allergy (Intermediate, Verified 03/09/24 08:53) HIVES Seasonal Allergies Allergy (Mild, Verified 03/09/24 08:53) Sneezing Shellfish Allergy (Unknown, Uncoded 03/09/24 08:53) HIVES Do you need a note to return to daycare/school/sports/work: No HPI HPI Comments History of Present Illness Details Patient is a 44-year-old female complaining of 2 days of head congestion, sinus pain, and a sore throat. She states that the sore throat is actually improved a little bit. She also admits to left-sided ear pain. She denies any fevers or or tests pain. She states her mother just traveled to [place] and came back with something similar but is now feeling better. [facility] Medical History Sore throat Upper respiratory tract infection Diabetes mellitus, type 2 Constipation by delayed colonic transit Headache syndrome Encounter to establish care Surgical History History of ovarian cyst Family History Father HTN (hypertension) CVD (cardiovascular disease) Diabetes mellitus HIV (human immunodeficiency virus infection) Hx of CABG Substance use disorder Mother Mental health disorder Brother Substance use disorder Sister No problems noted. Son Neuroblastoma Mental health disorder Paternal Aunt Substance use disorder Paternal Uncle Substance use disorder Social History Housing: House Alcohol intake: never Patient Tobacco Use Status: Never used Tobacco e-Cigarette/Vaping Use: Never Used service: No Current occupational status: employed Cognitive needs: No Hearing needs: No Vision needs: Yes Review of Systems Const All systems reviewed & are unremarkable except as noted in HPI and below Physical Exam Vital Signs: Last Vital Signs Temp 98.4 F 03/09/24 08:58 Pulse 74 03/09/24 08:58 BP 120/78 03/09/24 08:58 Pulse Ox 97 03/09/24 08:58 Const General: cooperative, healthy appearing, comfortable and no acute distress Orientation/consciousness: patient oriented x3 Limitations: no limitations HEENT Head: Yes normal to inspection Ears: hearing grossly normal bilaterally, external ears normal and TM's normal bilaterally General nose exam: Normal external nose present, Normal nares present and No nasal discharge present Face and sinus: Yes normal facial exam and Yes sinus tenderness Mouth: Normal oral and palatal mucosa present and moist mucous membranes Throat: Yes tonsils normal, Yes uvula midline and Yes posterior oropharynx abnormal (Erythema) Eyes General: appearance normal, both eyes and all related structures Neck Neck: Yes normal visual inspection Resp Effort & Inspection: normal respiratory effort, able to speak in complete sentences, no respiratory distress, not tachypneic, no tripod positioning and no use of accessory muscles Skin General skin exam: no rashes or lesions noted Neuro General: patient oriented x3 Extrem General: Yes normal to inspection and Yes no clubbing, cyanosis or edema Assessment & Plan Assessment & Plan (1) Acute sinusitis: Code(s): J01.90 - Acute sinusitis, unspecified Qualifiers: Recurrence: non-recurrent Sinusitis location: maxillary Qualified Code(s): J01.00 - Acute maxillary sinusitis, unspecified Plan: Educated patient that most sinus infections are viral, recommended she try [id number] cold and allergy medications, nasal saline rinses or Neti pot. Drinking plenty of fluids. Advised if her symptoms continue past 6 or 7 days, to call in and we can call it antibiotic in for her. Plan See above Coding Level of Care Code Est Pt Level 3 (20033) Diagnoses Acute non-recurrent maxillary sinusitis J01.00 Recurrence: non-recurrent Sinusitis location: maxillary
[2024-03-09 08:58] VITALS: BP 120/78; PULSE 74; TEMP 36.9; O2SAT 97
== END 2024-03-09 09:37 | disposition home or self-care (01) ==
PROVIDERS: PCP Internal Medicine; Visit Provider Physician Assistant
DX: J01.00 Acute maxillary sinusitis, unspecified (principal)
CPT/HCPCS: 99213

== ENCOUNTER 2024-03-11 13:28 | Outpatient (AMB) | payer OTHER, SELFPAY ==
--- NOTE | 2024-03-11 13:29 | MHC.OFFWIV ---
Intake Vital Signs 03/11/24 13:30 Height 5 ft 2 in Weight 135 lb BMI 24.7 BP 110/76 Blood Pressure Location Lt brachial Position Sitting Pulse 78 Pulse Source Pulse Oximeter Temp 98.6 F Temp Source Oral Pulse Oximetry (%) 98 Oxygen Delivery Method Room Air Intake Visit Reasons: EP, pink eye Intake Note: pt here c/o conjunctivitis. Started this morning Patient Tobacco Use Status: Never used Tobacco Allergies shellfish derived [SHELLFISH DERIVED] Allergy (Intermediate, Verified 03/11/24 13:30) HIVES Seasonal Allergies Allergy (Mild, Verified 03/11/24 13:30) Sneezing Shellfish Allergy (Unknown, Uncoded 03/11/24 13:30) HIVES Do you need a note to return to daycare/school/sports/work: No HPI EP, pink eye HPI Details This note is constructed using voice recognition software. While every effort has been made to ensure accuracy, traffic operations engineer errors may have been included. 44-year-old female presents with one-week history of left-sided ear pain and sinus pressure, followed by left eye discomfort 3 days ago, with some clear to yellow discharge, and some itch, mild cough, with thick yellow secretions from cough and from nose. She denies fever, chills, dyspnea. She was seen several ago walk-in clinic, and advised [id number] treatment as she was not quite ruled in for sinus infection. She had at that time not developed the ear discomfort or the eye complaints. She has no difficulty with hearing or vision. No jaw pain. [facility] Medical History Sore throat Upper respiratory tract infection Diabetes mellitus, type 2 Constipation by delayed colonic transit Headache syndrome Encounter to establish care Surgical History History of ovarian cyst Family History Father HTN (hypertension) CVD (cardiovascular disease) Diabetes mellitus HIV (human immunodeficiency virus infection) Hx of CABG Substance use disorder Mother Mental health disorder Brother Substance use disorder Sister No problems noted. Son Neuroblastoma Mental health disorder Paternal Aunt Substance use disorder Paternal Uncle Substance use disorder Social History Housing: House Alcohol intake: never Patient Tobacco Use Status: Never used Tobacco e-Cigarette/Vaping Use: Never Used service: No Current occupational status: employed Cognitive needs: No Hearing needs: No Vision needs: Yes Review of Systems Const All systems reviewed & are unremarkable except as noted in HPI and below Physical Exam Vital Signs: Last Vital Signs Temp 98.6 F 03/11/24 13:30 Pulse 78 03/11/24 13:30 BP 110/76 03/11/24 13:30 Pulse Ox 98 03/11/24 13:30 Oxygen Delivery Method Room Air 03/11/24 13:30 BMI result Body Mass Index 24.7 Const General: cooperative, healthy appearing, comfortable and no acute distress Orientation/consciousness: patient oriented x3 Limitations: no limitations HEENT Head: Yes normal to inspection Ears: hearing grossly normal bilaterally, external ears normal, TM normal on the right and TM abnormal bulging on the left and erythematous on the left General nose exam: Normal external nose present and Normal nares present Face and sinus: Yes normal facial exam and Yes Facial tenderness on exam of face and sinuses (Frontal and maxillary sinuses, left more than right) Mouth: Normal oral and palatal mucosa present and moist mucous membranes Throat: Yes tonsils normal, Yes uvula midline and Yes posterior oropharynx abnormal (Erythema) Eyes General: appearance normal, both eyes and all related structures Neck Neck: Yes normal visual inspection Resp Effort & Inspection: normal respiratory effort, able to speak in complete sentences, Actively coughing, no respiratory distress, not tachypneic, no tripod positioning and no use of accessory muscles Auscultation: clear to auscultation bilaterally Cardio Jugular venous distension: no JVD Rate: regular rate Rhythm: regular rhythm Heart sounds: S1 normal heart sound present, S2 normal heart sound present, no click, no gallops, no murmurs and no rubs Skin General skin exam: no rashes or lesions noted, elasticity normal and turgor normal Neuro General: patient oriented x3 Extrem General: Yes normal to inspection and Yes no clubbing, cyanosis or edema Assessment & Plan Assessment & Plan (1) Otitis media: Code(s): H66.90 - Otitis media, unspecified, unspecified ear Qualifiers: Otitis media type: suppurative Chronicity: acute Laterality: left Recurrence: non-recurrent Spontaneous tympanic membrane rupture: without spontaneous rupture Qualified Code(s): H66.002 - Acute suppurative otitis media without spontaneous rupture of ear drum, left ear Plan: Supportive measures encouraged and reviewed including NSAIDs, antipyretics, and heating pad as needed. Antimicrobial therapy initiated to cover both ear and sinus. Advised patient to take until completion of antibiotics, not to stop early. Reviewed risk associated with use of antibiotics and potential side effects as well as how to mitigate that. Advised patient to follow up as needed with worsening or failure to resolve (2) Sinusitis: Code(s): J32.9 - Chronic sinusitis, unspecified Qualifiers: Sinusitis location: frontal Chronicity: acute Recurrence: non-recurrent Qualified Code(s): J01.10 - Acute frontal sinusitis, unspecified Plan: Supportive measures encouraged and reviewed including NSAIDs, antipyretics, and heating pad as needed. Antimicrobial therapy initiated to cover both ear and sinus. Advised patient to take until completion of antibiotics, not to stop early. Reviewed risk associated with use of antibiotics and potential side effects as well as how to mitigate that. Advised patient to follow up as needed with worsening or failure to resolve Plan See above for full details and plan. Medications: New amoxicillin-pot clavulanate 875-125 mg 1 tab PO BID 10 days 20 tabs 0RF Coding Level of Care Code Est Pt Level 3 (06281) Diagnoses Non-recurrent acute suppurative otitis media of left ear without spontaneous rupture of tympanic membrane H66.002 Otitis media type: suppurative Chronicity: acute Laterality: left Recurrence: non-recurrent Spontaneous tympanic membrane rupture: without spontaneous rupture Acute non-recurrent frontal sinusitis J01.10 Sinusitis location: frontal Chronicity: acute Recurrence: non-recurrent
[2024-03-11 13:30] VITALS: BP 110/76; PULSE 78; TEMP 37; O2SAT 98; BMI 24.7
== END 2024-03-11 14:33 | disposition home or self-care (01) ==
PROVIDERS: PCP Internal Medicine; Visit Provider Registered Nurse
DX: H66.002 Acute suppurative otitis media without spontaneous rupture of ear drum, left ear (principal); J01.10 Acute frontal sinusitis, unspecified
CPT/HCPCS: 99213

== ENCOUNTER 2024-05-19 08:15 | Outpatient (AMB) | payer OTHER, SELFPAY ==
--- NOTE | 2024-05-19 08:23 | MHC.PC.OV ---
Intake Visit Reasons: f/u DM numbers Allergies shellfish derived [SHELLFISH DERIVED] Allergy (Intermediate, Verified 05/19/24 08:24) HIVES Seasonal Allergies Allergy (Mild, Verified 05/19/24 08:24) Sneezing Shellfish Allergy (Unknown, Uncoded 03/11/24 13:30) HIVES Medication List - Last Reconciled 05/19/24 by Adam Hernandez MD amitriptyline 10 mg PO BEDTIME 90 days epinephrine IM metformin 1,000 mg PO BID 90 days sumatriptan succinate 50 mg PO ONCE PRN 30 days Tobacco use date assessed: 05/19/24 Dental Screening Dental Screen Date: 05/19/24 Did you have a dental visit in the last 12 months?: Yes Did you have a dental problem in the last 6 months where you did not have access to dental care?: No Was dental information given to patient?: Patient has dentist HPI f/u DM numbers HPI Details Patient is 44 year old female this is telemed visit Headaches are stable, taking amitrptyline at night and sumatriptan as needed currently suffering from cold like symptoms that started a day ago, with stuffiness in nose and chills no fever Patient was notified to come to walk in clinic to be tested for flu diabetes : she is now on 1 G of Metformin bid i have placed order for labs to be done end of this month of early next month Patient has apt in Jul for follow up [facility] Medical History Sore throat Upper respiratory tract infection Diabetes mellitus, type 2 Constipation by delayed colonic transit Headache syndrome Encounter to establish care Surgical History History of ovarian cyst Family History Father HTN (hypertension) CVD (cardiovascular disease) Diabetes mellitus HIV (human immunodeficiency virus infection) Hx of CABG Substance use disorder Mother Mental health disorder Brother Substance use disorder Sister No problems noted. Son Neuroblastoma Mental health disorder Paternal Aunt Substance use disorder Paternal Uncle Substance use disorder Social History Housing: House Alcohol intake: never Patient Tobacco Use Status: Never used Tobacco e-Cigarette/Vaping Use: Never Used service: No Current occupational status: employed Cognitive needs: No Hearing needs: No Vision needs: Yes Questionnaire PHQ-9 Over the last 2 weeks, how often have you been bothered by any of the following problems? 1. Little interest or pleasure in doing things: not at all 2. Feeling down, depressed, or hopeless: not at all 3. Trouble falling or staying asleep, or sleeping too much: not at all 4. Feeling tired or having little energy: not at all 5. Poor appetite or overeating: not at all 6. Feeling bad about yourself - or that you are a failure or have let yourself or your family down: not at all 7. Trouble concentrating on things, such as reading the newspaper or watching television: not at all 8. Moving or speaking so slowly that other people could have noticed. Or the opposite - being so fidgety or restless that you have been moving around a lot more than usual: not at all 9. Thoughts that you would be better off or of hurting yourself in some way: not at all Total score: 0 Depression Screening Interpretation: Negative Depression Screening Done: Yes 33477 - PHQ-9 Billing: Yes Source: Developed by Drs. Clifford Parish, Mary Jo Adorno, Martin Santizo and colleagues, with an educational néstor from [employer]. Thrive Questionnaire Date Thrive assessed: 05/19/24 I am a: Patient What is your living situation today?: I have a steady place to live Within the past 12 months, did the food you bought not last and you didn't have the money to get more?: Never true Within the past 12 months, did you worry whether your food would run out before you got money to buy more?: Never true Do you have trouble paying for medicines?: No Do you have trouble getting transportation to medical appointments?: No Do you have trouble paying your heating and electricity bill?: No Do you have trouble taking care of your child, family member or friend?: No Do you have trouble with day-to-day activities such as bathing, preparing meals, shopping, managing finances, etc.?: No Are you currently unemployed and looking for a job?: No Are you interested in more education?: No Please select the resources that you would like help with: None Currently or been in a relationship where the following occur: No concerns reported THRIVE Score: 0 AUDIT C Alcohol Use Questionnaire (AUDIT-C) 1. How often do you have a drink containing alcohol?: Monthly or less 2. How many drinks containing alcohol do you have on a typical day when you are drinking?: 1 or 2 3. How often do you have six or more drinks on one occasion?: Never Total Score: 1 Score Reviewed/Action Taken: Yes EDITA-7 AMB Questionnaire EDITA-7 Date EDITA - 7 assessed: 05/19/24 Feeling nervous, anxious, or on edge: 0 = Not at all Not being able to stop or control worryin = Not at all Worrying too much about different things: 0 = Not at all Trouble relaxin = Not at all Being so restless that it is hard to sit still: 0 = Not at all Becoming easily annoyed or irritable: 0 = Not at all Feeling afraid as if something awful might happen: 0 = Not at all Total EDITA-7 score (0-4 normal; 5-9 mild; 10-14 moderate; 15-21 severe): 0 Source: Developed by Drs. Clifford Parish, Mary Jo Adorno, Martin Santizo and colleagues, with an educational néstor from [employer]. EDITA-7 Assessment Billing EDITA-7 Assessment Tool: EDITA-7 Assessment 28984 Review of Systems Const Denies fever(s) ENT Denies epistaxis Card Denies chest pain Resp Denies chest congestion, Denies cough and Denies hemoptysis GI Denies diarrhea and Denies nausea Skin/Breast Denies rash Neuro Reports no additional complaints Psych Reports no additional complaints Endo Reports no additional complaints Physical exam (Primary Care) Tobacco/Smoking Status: Tobacco use Status Tobacco use date assessed 05/19/24 05/19/24 08:26 Patient Tobacco Use Status Never used Tobacco 05/19/24 08:26 e-Cigarette/Vaping Use Never Used 05/19/24 08:26 PHQ-9: PHQ-9 Score PHQ-9: Total score 0 05/19/24 08:32 Depression Screening Interpretation: Negative Thrive Assessment: Date of Thrive Assessment Date Thrive assessed 05/19/24 05/19/24 08:26 Currently or been in a relationship where the following occur: No concerns reported Telehealth Telehealth Telehealth Platform: [facility] Location of provider rendering services: practice address Location of patient: address on file Patient Identification confirmed using: Name, : Yes Telehealth method: voice only Patient verbally consented to treatment: Yes Patient verbally consented to billing insurance company: Yes Patient informed of any privacy concerns related to visit: Yes Minutes spent on Phone/Video with Pt.: 13 Coding Level of Care Code Tele Est Pt Level 3 (25952) Diagnoses Type 2 diabetes mellitus with other specified complication, without long-term current use of insulin E11.69 Diabetes mellitus complication status: with other specified complication Diabetes mellitus senior living insulin use: without manager long term care use Intractable migraine with aura without status migrainosus G43.119 Intractability: intractable Status migrainosus presence: without status migrainosus Acute nasopharyngitis J00 URI type: acute nasopharyngitis (common cold) Additional Codes EDITA-7 Assessment Billing - EDITA-7 Assessment Tool: EDITA-7 Assessment [id number] ([id number]) Assessment & Plan Assessment & Plan (1) Type 2 diabetes mellitus: Code(s): E11.9 - Type 2 diabetes mellitus without complications Category: Medical Qualifiers: Diabetes mellitus complication status: with other specified complication Diabetes mellitus senior living insulin use: without senior living use Qualified Code(s): E11.69 - Type 2 diabetes mellitus with other specified complication (2) Migraine headache with aura: Code(s): G43.109 - Migraine with aura, not intractable, without status migrainosus Category: Medical Qualifiers: Intractability: intractable Status migrainosus presence: without status migrainosus Qualified Code(s): G43.119 - Migraine with aura, intractable, without status migrainosus (3) Upper respiratory tract infection: Code(s): J06.9 - Acute upper respiratory infection, unspecified Category: Medical Qualifiers: URI type: acute nasopharyngitis (common cold) Qualified Code(s): J00 - Acute nasopharyngitis [common cold] Plan Patient is 44 year old female this is telemed visit Headaches are stable, taking amitrptyline at night and sumatriptan as needed currently suffering from cold like symptoms that started a day ago, with stuffiness in nose and chills no fever Patient was notified to come to walk in clinic to be tested for flu diabetes : she is now on 1 G of Metformin bid i have placed order for labs to be done end of this month of early next month Patient has apt in Dec for follow up Orders: Orders Complete Blood Count Auto Diff Today E11.69 - Type 2 diabetes mellitus with other specified complication, G43.119 - Migraine with aura, intractable, without status migrainosus, J00 - Acute nasopharyngitis [common cold] Hemoglobin A1c Today E11.69 - Type 2 diabetes mellitus with other specified complication, G43.119 - Migraine with aura, intractable, without status migrainosus, J00 - Acute nasopharyngitis [common cold] Comprehensive Met. Panel Today E11.69 - Type 2 diabetes mellitus with other specified complication, G43.119 - Migraine with aura, intractable, without status migrainosus, J00 - Acute nasopharyngitis [common cold] LDL Cholesterol Direct Today E11.69 - Type 2 diabetes mellitus with other specified complication, G43.119 - Migraine with aura, intractable, without status migrainosus, J00 - Acute nasopharyngitis [common cold]
== END 2024-05-19 09:22 | disposition home or self-care (01) ==
LOC: HO.HMCC 08:15
PROVIDERS: PCP Internal Medicine; Visit Provider Internal Medicine
DX: E11.69 Type 2 diabetes mellitus with other specified complication (principal); G43.119 Migraine with aura, intractable, without status migrainosus; J00 Acute nasopharyngitis [common cold]

== ENCOUNTER → 2024-05-19 08:15 | Outpatient (BNVA) | payer OTHER, SELFPAY | PROVIDERS: PCP Internal Medicine; Visit Provider Internal Medicine | DX: E11.69 Type 2 diabetes mellitus with other specified complication (principal); G43.119 Migraine with aura, intractable, without status migrainosus | CPT/HCPCS: 96127 ==

== ENCOUNTER 2024-08-22 07:38 | Outpatient (REF) | payer OTHER, SELFPAY ==
[2024-08-22 10:33] LABS: MANUAL DIFF FLAG NO
[2024-08-22 10:37] LABS: Basophils Percent Auto 0.5 % (0-2); Eosinophils Absolute Auto 0.1 X10*3/uL (0.0-0.4); Eosinophils Percent Auto 1.8 % (0-4); Hematocrit 40.5 % (37.0-47.0); Hemoglobin 13.2 g/dl (12.0-16.0); Imm Gran Abs Auto 0.01 X10*3/uL (0.00-0.03); Imm Gran Pct Auto 0.2 % (0.0-0.4); Lymphocytes Absolute Auto 2.6 X10*3/uL (1.2-4.9); Lymphocytes Percent Auto 42.3 % (20-40); Mean Corpuscular HGB Conc 32.6 g/dl (31.0-35.0); Mean Corpuscular Hemoglobin 29.7 pg (27.0-33.0); Monocytes Absolute Auto 0.4 X10*3/uL (0.1-1.2); Monocytes Percent Auto 7.1 % (2-11); Neutrophils Absolute Auto 2.9 x10*3/uL (2.0-8.3); Neutrophils Percent Auto 48.1 % (45-73); Platelet Count 410 X10*3/uL (160-400); Red Blood Count 4.45 X10*6/uL (4.20-5.50); Red Cell Distribution Width 12.2 % (11.0-16.0); White Blood Count 6.1 X10*3/uL (4.8-10.8)
[2024-08-22 10:46] LABS: Estimated Average Glucose 154 mg/dL; Hemoglobin A1C 177.1977 umol/L; Total Hemoglobin (HGBA1C) 3312.8422 umol/L
[2024-08-22 10:52] LABS: Alanine Aminotransferase 32 U/L (0-31); Albumin Level 4.2 g/dL (3.5-5.0); Alkaline Phosphatase 73 U/L (39-117); Anion Gap 11 (12-20); Aspartate Amino Transferase 25 U/L (5-31); Bilirubin Total 0.5 mg/dL (0.0-1.0); Blood Urea Nitrogen 12 mg/dL (9-16); Calcium 9.7 mg/dL (8.4-10.2); Carbon Dioxide 25 mmol/L (22-29); Chloride 108 mmol/L (96-108); Cholesterol 184 mg/dL (<200); Estimated Glomerular Filt Rate > 60; Glucose Fasting 174 mg/dL (60-99); Glucose Random 174 mg/dL (60-115); HDL Cholesterol 43 mg/dL (>40); LDL Cholesterol Calculated 116 mg/dL (<100); Potassium 4.2 mmol/L (3.3-5.1); Sodium 140 mmol/L (135-145); Total Protein 7.9 g/dL (6.5-8.0); Triglycerides 127 mg/dL (<150)
[2024-08-22 11:28] LABS: Creatinine Urine 121.16 mg/dL; Microalbumin Urine < 5.0 mg/L
[2024-08-22 12:19] LABS: Vitamin B12 293 pg/mL (200-900)
[2024-08-23 22:48] LABS: LDL Cholesterol Direct 131 mg/dL (<100)
[2024-08-27 13:34] LABS: Vitamin D 25-OH, D2 <4 ng/mL; Vitamin D 25-OH, D3 20 ng/mL; Vitamin D 25-OH, Total 20 ng/mL (30-100)
== END 2024-08-22 07:39 | disposition home or self-care (01) ==
LOC: HO.HMGCLDS 07:38
PROVIDERS: PCP Internal Medicine; Visit Provider Internal Medicine
DX: E11.69 Type 2 diabetes mellitus with other specified complication (principal); G43.119 Migraine with aura, intractable, without status migrainosus; J00 Acute nasopharyngitis [common cold]; G44.89 Other headache syndrome; F32.2 Major depressive disorder, single episode, severe without psychotic features
CPT/HCPCS: 36415; 80053; 80061; 82043; 82306; 82570; 82607; 83036; 83721; 85025

== ENCOUNTER 2024-08-26 08:48 | Outpatient (AMB) | payer OTHER, SELFPAY ==
--- NOTE | 2024-08-26 08:50 | A.OFFPC_ITS ---
Vital Signs 08/26/24 08:51 Height 5 ft 2 in Weight 142 lb 2 oz BMI 26.0 BP 118/76 Blood Pressure Location Lt brachial Position Sitting Pulse 78 Pulse Source Pulse Oximeter Pulse Oximetry (%) 98 Oxygen Delivery Method Room Air Intake Visit Reasons: 6 month follow up - see comments Allergies shellfish derived [SHELLFISH DERIVED] Allergy (Intermediate, Verified 08/26/24 08:51) HIVES Seasonal Allergies Allergy (Mild, Verified 08/26/24 08:51) Sneezing Shellfish Allergy (Unknown, Uncoded 03/11/24 13:30) HIVES Medication List - Last Reconciled 08/26/24 by Adam Hernandez MD amitriptyline 10 mg PO BEDTIME 90 days azelastine-fluticasone 137-50 mcg/spray 2 sprays intranasal BID epinephrine IM metformin 1,000 mg PO BID 90 days sumatriptan succinate 50 mg PO ONCE PRN 30 days Tobacco use date assessed: 08/26/24 Dental Screening Dental Screen Date: 08/26/24 Did you have a dental visit in the last 12 months?: Yes Did you have a dental problem in the last 6 months where you did not have access to dental care?: No Was dental information given to patient?: Patient has dentist HPI 6 month follow up - see comments HPI Details History of Present Illness - The patient is a 44-year-old female pr esenting with a six-month follow-up for chronic conditions including psoriasis, sinus issues, migraines, and type 2 diabetes. - Psoriasis has re-emerged affecting ramirez ds and near the eye, ineffective treatment with OTC drugs. - Chronic sinusitis with frequent nasal congestion is contributing to fatigue and increased migraine frequency. Allergy shots and nasal sprays are currently used; CT scans show no specific concerns. - Daily migraines are linked to nasal co ngestion, with sumatriptan providing episodic relief. - Recent hemoglobin A1c reduction with o ngoing metformin treatment suggests improved glycemic control. Problem List - Psoriasis - Endometriosis - Chronic sinusitis and allergic rhiniti s - Migraine - Type 2 Diabetes Mellitutis - allergies Medications - Metformin, 1 gram twice daily, for Typ e 2 Diabetes Mellitus. - Sumatriptan, PRN, for migraines. - Flonase nasal spray, unspecified dosag e, for sinusitis and allergic rhinitis. - Amitriptyline, previously taken, for m igraines or sleep, though with negligible effect. - Allergy shots weekly for managing mariah rgies. Diagnostic results - Labs: Hemoglobin A1c has decreased fro m 7.5% to 7.0%. Hemoglobin is noted at 13.2 g/dL, indicating no current anemia. - Tests and Diagnostics: CT scan of the face is unremarkable for structural issues. [place] of Care: ENT specialist Review of Systems - Dermatologic: Reports resurgence of ps oriasis on hands and near the eye. - Neurologic: Reports frequent migraines . - Respiratory: Reports chronic nasal con gestion. - Hematologic: Denies anemia. - Endocrine: Denies significant diabetic -related issues beyond noted A1c. - General: Reports fatigue and irritabil ity. General: No fever no chill ear nose throat: No sore throat no hearing difficulty no ear pain cardiovascular: No syncope, no chest pain, no palpitations gastrointestinal: No nausea vomiting or diarrhea endocrine: No polyuria polydipsia no heat intolerance genitourinary: No dysuria Physical Exam general: No acute distress HEENT: Psoriasis on hands and edge of eye neck: Supple respiratory system: Able to talk in full sentences, no audible wheeze no stridor cardiovascular: S1-S2 gastrointestinal: No pain extremities: No new findings DIRECT CARE PROFESSIONAL: Alert awake oriented x3 motor sensory intact skin: Psoriasis on hands and edge of eye Patient Instructions - Use prescribed cream for psoriasis, be ing cautious near the eye. - Continue nasal sprays and allergy valorie tments as directed. - Discuss lack of effectiveness with csa ro allergy management at the next specialist appointment. - Continue metformin for diabetes manage ment and consult about combining medications if further improvement is desired. - Follow up in three months for reassess ment of various conditions, including diabetes and chronic sinus issues. [facility] Medical History Sore throat Upper respiratory tract infection Diabetes mellitus, type 2 Constipation by delayed colonic transit Headache syndrome Encounter to establish care Surgical History History of ovarian cyst Family History Father HTN (hypertension) CVD (cardiovascular disease) Diabetes mellitus HIV (human immunodeficiency virus infection) Hx of CABG Substance use disorder Mother Mental health disorder Brother Substance use disorder Sister No problems noted. Son Neuroblastoma Mental health disorder Paternal Aunt Substance use disorder Paternal Uncle Substance use disorder Social History Housing: House Alcohol intake: never Patient Tobacco Use Status: Never used Tobacco e-Cigarette/Vaping Use: Never Used service: No Current occupational status: employed Cognitive needs: No Hearing needs: No Vision needs: Yes Questionnaire PHQ-9 Over the last 2 weeks, how often have you been bothered by any of the following problems? 1. Little interest or pleasure in doing things: several days 2. Feeling down, depressed, or hopeless: several days 3. Trouble falling or staying asleep, or sleeping too much: nearly every day 4. Feeling tired or having little energy: nearly every day 5. Poor appetite or overeating: several days 6. Feeling bad about yourself - or that you are a failure or have let yourself or your family down: several days 7. Trouble concentrating on things, such as reading the newspaper or watching television: several days 8. Moving or speaking so slowly that other people could have noticed. Or the opposite - being so fidgety or restless that you have been moving around a lot more than usual: not at all 9. Thoughts that you would be better off or of hurting yourself in some way: not at all Total score: 11 Depression Screening Interpretation: Positive Depression Screening Follow-up: Existing condition and In treatment Depression Screening Done: Yes 26584 - PHQ-9 Billing: Yes Source: Developed by Drs. Clifford Parish, Mary Jo Adorno, Martin Santizo and colleagues, with an educational néstor from [employer]. Thrive Questionnaire Date Thrive assessed: 08/26/24 I am a: Patient What is your living situation today?: I have a steady place to live Within the past 12 months, did the food you bought not last and you didn't have the money to get more?: Never true Within the past 12 months, did you worry whether your food would run out before you got money to buy more?: Never true Do you have trouble paying for medicines?: No Do you have trouble getting transportation to medical appointments?: No Do you have trouble paying your heating and electricity bill?: No Do you have trouble taking care of your child, family member or friend?: No Do you have trouble with day-to-day activities such as bathing, preparing meals, shopping, managing finances, etc.?: No Are you currently unemployed and looking for a job?: No Are you interested in more education?: No Please select the resources that you would like help with: None Currently or been in a relationship where the following occur: No concerns reported THRIVE Score: 0 AUDIT C Alcohol Use Questionnaire (AUDIT-C) 1. How often do you have a drink containing alcohol?: Monthly or less 2. How many drinks containing alcohol do you have on a typical day when you are drinking?: 1 or 2 3. How often do you have six or more drinks on one occasion?: Never Total Score: 1 Score Reviewed/Action Taken: Yes EDITA-7 AMB Questionnaire EDITA-7 Date EDITA - 7 assessed: 08/26/24 Feeling nervous, anxious, or on edge: 0 = Not at all Not being able to stop or control worryin = Several days Worrying too much about different things: 1 = Several days Trouble relaxin = Several days Being so restless that it is hard to sit still: 0 = Not at all Becoming easily annoyed or irritable: 0 = Not at all Feeling afraid as if something awful might happen: 0 = Not at all Total EDITA-7 score (0-4 normal; 5-9 mild; 10-14 moderate; 15-21 severe): 3 Source: Developed by Drs. Clifford Parish, Mary Jo Adorno, Martin Santizo and colleagues, with an educational néstor from [employer]. EDITA-7 Assessment Billing EDITA-7 Assessment Tool: EDITA-7 Assessment 84448 Physical exam (Primary Care) Vital Signs: Last Vital Signs Pulse 78 08/26/24 08:51 BP 118/76 08/26/24 08:51 Pulse Ox 98 08/26/24 08:51 Oxygen Delivery Method Room Air 08/26/24 08:51 BMI result Body Mass Index 26.0 Tobacco/Smoking Status: Tobacco use Status Tobacco use date assessed 08/26/24 08/26/24 08:55 Patient Tobacco Use Status Never used Tobacco 08/26/24 08:55 e-Cigarette/Vaping Use Never Used 08/26/24 08:55 PHQ-9: PHQ-9 Score PHQ-9: Total score 11 08/26/24 09:18 Depression Screening Interpretation: Positive Depression Screening Follow-up: Existing condition and In treatment Thrive Assessment: Date of Thrive Assessment Date Thrive assessed 08/26/24 08/26/24 08:56 Currently or been in a relationship where the following occur: No concerns reported Coding Level of Care Code Est Pt Level 4 (05933) Complex EM visit Add On G2211 Diagnoses Type 2 diabetes mellitus with other specified complication, without long-term current use of insulin E11.69 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: without retirement use Diabetes mellitus complication status: with other specified complication Headache syndrome G44.89 Major depressive disorder, severe F32.2 Chronic maxillary sinusitis J32.0 Chronic rhinitis J31.0 Nasal congestion R09.81 Psoriasis L40.9 Additional Codes EDITA-7 Assessment Billing - EDITA-7 Assessment Tool: EDITA-7 Assessment 57650 ([id number]) PHQ-9 - 51026 - PHQ-9 Billing: Yes ([id number]) Assessment & Plan Assessment & Plan (1) Type 2 diabetes mellitus: Code(s): E11.9 - Type 2 diabetes mellitus without complications Category: Medical Qualifiers: Diabetes mellitus retirement insulin use: without ad terminal makeup operator use Diabetes mellitus complication status: with other specified complication Qualified Code(s): E11.69 - Type 2 diabetes mellitus with other specified complication (2) Headache syndrome: Code(s): G44.89 - Other headache syndrome Category: Medical (3) Major depressive disorder, severe: Code(s): F32.2 - Major depressive disorder, single episode, severe without psychotic features Category: Medical (4) Chronic maxillary sinusitis: Code(s): J32.0 - Chronic maxillary sinusitis Category: Medical (5) Chronic rhinitis: Code(s): J31.0 - Chronic rhinitis Category: Medical (6) Nasal congestion: Code(s): R09.81 - Nasal congestion Category: Medical (7) Psoriasis: Code(s): L40.9 - Psoriasis, unspecified Category: Medical Plan History of Present Illness - The patient is a 44-year-old female presenting with a six-month follow-up for chronic conditions including psoriasis, sinus issues, migraines, and type 2 diabetes. - Psoriasis has re-emerged affecting hands and near the eye, ineffective treatment with OTC drugs. - Chronic sinusitis with frequent nasal congestion is contributing to fatigue and increased migraine frequency. Allergy shots and nasal sprays are currently used; CT scans show no specific concerns. - Daily migraines are linked to nasal congestion, with sumatriptan providing episodic relief. - Recent hemoglobin A1c reduction with ongoing metformin treatment suggests improved glycemic control. Problem List - Psoriasis - Endometriosis - Chronic sinusitis and allergic rhinitis - Migraine - Type 2 Diabetes Mellitutis - allergies Medications - Metformin, 1 gram twice daily, for Type 2 Diabetes Mellitus. - Sumatriptan, PRN, for migraines. - Flonase nasal spray, unspecified dosage, for sinusitis and allergic rhinitis. - Amitriptyline, previously taken, for migraines or sleep, though with neg ligible effect. - Allergy shots weekly for managing allergies. Diagnostic results - Labs: Hemoglobin A1c has decreased from 7.5% to 7.0%. Hemoglobin is noted at 13.2 g/dL, indicating no current anemia. - Tests and Diagnostics: CT scan of the face is unremarkable for structural issues. [place] of Care: ENT specialist Patient Instructions - Use prescribed cream for psoriasis, being cautious near the eye. - Continue nasal sprays and allergy treatments as directed. - Discuss lack of effectiveness with current allergy management at the next specialist appointment. - Continue metformin for diabetes management and consult about combining medications if further improvement is desired. - Follow up in three months for reassessment of various conditions, including diabetes and chronic sinus issues. Medications: New cyanocobalamin (vitamin B-12) 1,000 mcg PO DAILY 90 days 90 tabs 0RF cholecalciferol (vitamin D3) 25 mcg PO DAILY 90 days 90 caps 1RF prednisone 10 mg PO DAILY 7 days 7 tabs 0RF Refilled sumatriptan succinate do not exceed 4 doses per 24 hrs 50 mg PO ONCE 30 days PRN 10 tabs 1RF migraine headache metformin 1,000 mg PO BID 90 days 180 tabs 0RF E11.9 - Type 2 diabetes mellitus without complications Discontinued amitriptyline Discontinued Reason: Doctor's Order 10 mg PO BEDTIME 90 days 90 tabs 0RF
[2024-08-26 08:51] VITALS: BP 118/76; PULSE 78; O2SAT 98; BMI 26.0
== END 2024-08-26 09:19 | disposition home or self-care (01) ==
PROVIDERS: PCP Internal Medicine; Visit Provider Internal Medicine
DX: E11.69 Type 2 diabetes mellitus with other specified complication (principal); G44.89 Other headache syndrome; F32.2 Major depressive disorder, single episode, severe without psychotic features; J32.0 Chronic maxillary sinusitis; J31.0 Chronic rhinitis; R09.81 Nasal congestion; L40.9 Psoriasis, unspecified

== ENCOUNTER → 2024-08-26 08:48 | Outpatient (BNVA) | payer OTHER, SELFPAY | PROVIDERS: PCP Internal Medicine; Visit Provider Internal Medicine | DX: E11.69 Type 2 diabetes mellitus with other specified complication (principal); G44.89 Other headache syndrome; F32.2 Major depressive disorder, single episode, severe without psychotic features; J32.0 Chronic maxillary sinusitis; J31.0 Chronic rhinitis; R09.81 Nasal congestion; L40.9 Psoriasis, unspecified | CPT/HCPCS: 96127; 99212 ==

== ENCOUNTER → 2024-10-17 14:23 | Outpatient (BNVA) | payer OTHER, SELFPAY | PROVIDERS: PCP Internal Medicine; Visit Provider Physician Assistant Medical | DX: S50.871A Other superficial bite of right forearm, initial encounter (principal); W50.3XXA Accidental bite by another person, initial encounter; Z02.79 Encounter for issue of other medical certificate | CPT/HCPCS: 99202 ==

== ENCOUNTER 2024-10-27 08:14 | Outpatient (AMB) | payer OTHER, SELFPAY ==
--- OUTSIDE RECORDS SUMMARY | 2024-10-27 08:35 | XMS_ITS | Continuity of Care Document ---
Author Organization [place] - [facility], Allergy Address [address] [address] Care Team Providers Care Press Tender Incendiary Grenade Name Role Phone HELEN JAY Primary Care Provider Assessment Encounter Date Assessment Date Assessment LastModified by Organization Details LastModified Time 10/12/2024 10/12/2024 Visit With: Elias Lal RN Use of Antihistamine s: No If yes: Vial Test Change in medications: No If yes ? ? ? Increase in asthma symptoms No Asthma Hx If yes, inhaler use: Reaction to last injections: No If yes: ? ? ? Allergy Symptoms: Other: ? ? ? Missed: Dose Aware of Vial Test Notes:? ? ? [email or web address] Not available 10/12/2024 17:38:01 Plan of Treatment Reminders Order Date Submit Date Provider Last Modified By Organization Details Last Modified Time Details Appointments [facility]- Allergy f-up 6mon 2024 02:30P M GEO Teran MD Not available Not available Not available Lab None recorded . Referral None recorded . Procedures None recorded . Surgeries None recorded . Imaging None recorded . Medication Orders None recorded . Patient TargetsNo targets recorded. Patient InstructionsNo instructions recorded. Reason for Referral None Reported. Problems Name Problem SNOMED Code Status Onset Date Resolution Date Notes Provider Name and Address Organization Details Recorded Time Acute sinusitis 97485947 Active 2021 Other acute sinusitis ; Note: Date Diagnosed : 04/11/2022 4:55 PM (J01.80) Not Available [facility] 03:18:19 Allergic rhinitis 50489765 Active 2023 Allergic rhinitis: Due to other allergen; Note: Date Diagnosed : 08/26/2023 4:34 PM (477.8) Note: Date Diagnosed : 08/26/2023 4:34 PM (477.8) Allergi c rhinitis: Due to other allergen; Note: Date Diagnosed : 08/21/2023 2:09 PM (477.8) Note: Date Diagnosed : 08/21/2023 2:09 PM (477.8) ; Start Date : 4 Allergi c rhinitis: Due to other allergen; Note: Date Diagnosed : 4:00 PM (477.8) Note: Date Diagnosed : 4:00 PM (477.8) ; Start Date : Allergi c rhinitis: Due to other allergen; Note: Date Diagnosed : 4:22 PM (477.8) Note: Date Diagnosed : 4:22 PM (477.8) ; Start Date : Allergi c rhinitis: Due to other allergen; Note: Date Diagnosed : 06/23/2023 12:16 PM (477.8) Note: Date Diagnosed : 06/23/2023 12:16 PM (477.8) ; Start Date : Allergi c rhinitis: Due to other allergen; Note: Date Diagnosed : 11:55 AM (477.8) Note: Date Diagnosed : 11:55 AM (477.8) ; Start Date : Allergi c rhinitis: Due to other allergen; Note: Date Diagnosed : 11:51 AM (477.8) Note: Date Diagnosed : 11:51 AM (477.8) ; Start Date : Allergi c rhinitis: Due to other allergen; Note: Date Diagnosed : 05/19/2023 10:24 AM (477.8) Note: Date Diagnosed : 05/19/2023 10:24 AM (477.8) ; Start Date : Allergi c rhinitis: Due to other allergen; Note: Date Diagnosed : 05/07/2023 12:05 PM (477.8) Note: Date Diagnosed : 05/07/2023 12:05 PM (477.8) ; Start Date : Allergi c rhinitis: Due to other allergen; Note: Date Diagnosed : 04/30/2023 12:06 PM (477.8) Note: Date Diagnosed : 04/30/2023 12:06 PM (477.8) ; Start Date : Allergi c rhinitis: Due to other allergen; Note: Date Diagnosed : 04/23/2023 12:13 PM (477.8) Note: Date Diagnosed : 04/23/2023 12:13 PM (477.8) ; Start Date : Allergi c rhinitis: Due to other allergen; Note: Date Diagnosed : 04/17/2023 11:38 AM (477.8) Note: Date Diagnosed : 04/17/2023 11:38 AM (477.8) ; Start Date : Allergi c rhinitis: Due to other allergen; Note: Date Diagnosed : 04/03/2023 1:17 PM (477.8) Note: Date Diagnosed : 04/03/2023 1:17 PM (477.8) ; Start Date : Allergi c rhinitis: Due to other allergen; Note: Date Diagnosed : 03/26/2023 2:03 PM (477.8) Note: Date Diagnosed : 03/26/2023 2:03 PM (477.8) ; Start Date : Allergi c rhinitis: Due to other allergen; Note: Date Diagnosed : 03/20/2023 11:54 AM (477.8) Note: Date Diagnosed : 03/20/2023 11:54 AM (477.8) ; Start Date : Allergi c rhinitis: Due to other allergen; Note: Date Diagnosed : 03/12/2023 2:04 PM (477.8) Note: Date Diagnosed : 03/12/2023 2:04 PM (477.8) ; Start Date : Allergi c rhinitis: Due to other allergen; Note: Date Diagnosed : 02/25/2023 2:26 PM (477.8) Note: Date Diagnosed : 02/25/2023 2:26 PM (477.8) ; Start Date : 3 Allergi c rhinitis: Due to other allergen; Note: Date Diagnosed : 02/18/2023 2:43 PM (477.8) Note: Date Diagnosed : 02/18/2023 2:43 PM (477.8) ; Start Date : 3 Allergi c rhinitis: Due to other allergen; Note: Date Diagnosed : 02/04/2023 3:33 PM (477.8) Note: Date Diagnosed : 02/04/2023 3:33 PM (477.8) ; Start Date : Allergi c rhinitis: Due to other allergen; Note: Date Diagnosed : 01/29/2023 4:10 PM (477.8) Note: Date Diagnosed : 01/29/2023 4:10 PM (477.8) ; Start Date : Allergi c rhinitis: Due to other allergen; Note: Date Diagnosed : 12/05/2022 1:31 PM (477.8) Note: Date Diagnosed : 12/05/2022 1:31 PM (477.8) ; Start Date : Allergi c rhinitis: Due to other allergen; Note: Date Diagnosed : 11/13/2022 3:57 PM (477.8) Note: Date Diagnosed : 11/13/2022 3:57 PM (477.8) ; Start Date : Allergi c rhinitis: Due to other allergen; Note: Date Diagnosed : 10/23/2022 4:03 PM (477.8) Note: Date Diagnosed : 10/23/2022 4:03 PM (477.8) ; Start Date : 3 Not Available [facility] 4 01:25:08 Bilateral disorder of Eustachia n tubes [id number] 88866 Active 2020 Other specified disorders of Eustachia n tube, bilateral ; Note: Date Diagnosed : 1 11:11 AM (H69.83) Not Available [facility] 4 03:18:18 Recurrent acute sinusitis 915355056 Active 2021 Other acute recurrent sinusitis ; Note: Date Diagnosed : 2 5:29 PM (J01.81) Not Available [facility] 4 03:18:19 Pain of right temporoma ndibular joint [id number] 611749 Active 2020 Arthralgi a of right temporoma ndibular joint; Note: Date Diagnosed : 1 11:48 AM (M26.621) Not Available [facility] 4 03:18:19 Allergic rhinitis caused by pollen 66700186 Active 2022 Allergic rhinitis due to pollen; Note: Date Diagnosed : 09/26/2022 4:51 PM (J30.1) Not Available [facility] 4 03:18:19 Perennial allergic rhinitis 958716585 Active 2023 [facility] [address], [place], [place], [address] , [place] - [facility] 4 17:05:30 Acute maxillary sinusitis 11369224 Active 2023 GEO CASTILLO MD [address], [place], [address] , [place] - [facility] 4 16:53:35 Chronic sinusitis 60735085 Active 2023 GEO CASTILLO MD [address], [place], [place], [address] , [place] - [facility] 4 15:10:31 Nasal congestio n 30678420 Active 2023 GERALDINE FARRAR MD [address], [place], [address] , [place] - [facility] 4 10:22:29 Atypical facial pain 95216883 Active 2023 GERALDINE FARRAR MD [address], [place], [place], [address] , [place] - [facility] 4 21:56:24 Seasonal allergic rhinitis 705510965 Active 2023 GEO CASTILLO MD [address], [place], [address] , [place] - [facility] 07:59:00 Anterior epistaxis 607449712 Active 2024 GERALDINE FARRAR MD [address], [place], [address] , [place] - [facility] 09:42:15 Problem Notes None recorded. Procedures Surgical History Date Name Laterality Status Provider Name and Address Organization Details Recorded Time 10/12/19 25 Allergy Immunotherapy Injections completed ELIAS LAL RN [address] [facility],[address] [facility], [place], [address], [place] - [facility] 10/12/2024 17:39:46 10/07/19 25 Allergy Immunotherapy Injections completed ELIAS LAL RN [address] [facility] [address] [place] [address], [address], [place] - [facility] 10/07/2024 11:24:17 09/28/19 25 Allergy Immunotherapy Injections completed ELIAS LAL RN [address] [facility],[address] [facility], [place], [address], [place] - [facility] 09/28/2024 17:15:28 09/21/19 25 Allergy Immunotherapy Injections completed KATHERINE CRAVEN [address] [facility] [address] [place] [address], [address], [place] - [facility] 09/21/2024 17:29:47 06/23/20 24 Allergy Immunotherapy Injections completed KATHERINE CRAVEN [address] [facility] [address] [facility], [place], [address], [place] - [facility] 06/23/2024 16:33:26 06/01/20 24 Allergy Immunotherapy Injections completed KATHERINE WEATHERS [address] [facility] [address], [address], [place] [facility] 06/01/2024 11:14:57 05/11/20 24 Allergy Immunotherapy Injections completed KATHREINE WEATHERS [address] [facility] [address], [address], [place] [facility] 05/11/2024 17:20:23 04/21/20 24 Allergy Immunotherapy Injections completed KATHERINE CRAVEN [address], [address], [place] [facility] 04/21/2024 16:20:17 04/13/20 24 Allergy Immunotherapy Injections completed ABHIJEET DANIELS, RMA [address] [facility] [address] [address], [address], [place] [facility] 04/13/2024 16:57:24 04/07/20 24 Allergy Immunotherapy Injections completed MICHAEL PEDROZA RMA [address] [facility] [address], [place], [address], [place] [facility] 04/07/2024 16:25:04 03/02/20 24 Allergy Immunotherapy Injections completed ABHIJEET DANIELS, RMA [address] [facility] [address] [place] [address], [address], [place] - [facility] 03/02/2024 14:30:05 02/25/20 24 Allergy Immunotherapy Injections completed ELIAS LAL RN [address] [facility] [address] [place] [address], [address], [place] [facility] 02/25/2024 15:26:18 01/19/20 24 Allergy Immunotherapy Injections completed KATHERINE CRAVEN [address] [facility] [address] [place] [address], [address], [place] [facility] 01/19/2024 15:42:11 12/30/19 24 Allergy Immunotherapy Injections completed ABHIJEET DANIELS RMA [address] [facility] [address], [place], [address], [facility] - [facility] 12/30/2023 17:05:54 Imaging Results None recorded. Procedure Notes None recorded. Medical Equipment None Reported. Allergies No known drug allergies Medications Name Sig Start Date Stop Date Status Note LastModified by Organization Details LastModified Time metformin 500 mg tablet TAKE 1 TABLET BY MOUTH TWICE A DAY FOR 90 DAYS 04/25 completed Not Available Not Available Not Available prednison e 10 mg tablet TAKE 1 TABLET BY MOUTH DAILY FOR 7 DAYS active Not Available Not Available No t Available doxycycli ne hyclate 100 mg capsule 05/30 completed Medicati on ID: [id number] D uration Value: 14 Brand Name: doxycycl ine hyclate Send Method: E-Prescr ibed Sub s Allowed: subs OK Speci al Instruct ion: Take 1 PO BID X 14 days Med icationG enericNa me: doxycycl ine hyclate Not Available Not Available Not Available azithromy ellie 250 mg tablet TAKE 2 TABLETS BY MOUTH TODAY, THEN TAKE 1 TABLET DAILY FOR 4 DAYS DIRECTED active Not Available Not Available No t Available sumatript an 50 mg tablet PLEASE SEE ATTACHED FOR DETAILED DIRECTIO NS active Not Available Not Available No t Available amitripty line 10 mg tablet TAKE 1 TABLET BY MOUTH AT BEDTIME FOR 90 DAYS active Not Available Not Available No t Available benzonata te 100 mg capsule TAKE 1 CAPSULE (100 MG) BY MOUTH 3 TIMES A DAY 04/25 completed Not Available Not Available Not Available metformin 1,000 mg tablet TAKE 1 TABLET (1000 MG) BY MOUTH 2 TIMES A DAY FOR 90 DAYS active Not Available Not Available No t Available budesonid e 0.5 mg/2 mL suspensio n for nebulizat ion INHALE 2 ML EVERY DAY BY NEBULIZA TION ROUTE active Not Available Not Available No t Available epinephri ne 0.3 mg/0.3 mL injection , auto-inje ctor Inject 1 pen injector single dose as needed active Not Available Not Available No t Available medroxypr ogesteron e 150 mg/mL intramusc ular suspensio n INJECT 1 ML INTO THE MUSCLE EVERY 3 MONTHS active Not Available Not Available No t Available doxycycli ne hyclate 100 mg tablet TAKE 1 TABLET BY MOUTH TWICE A DAY FOR 10 DAYS 05/30 completed Not Available Not Available Not Available naproxen 500 mg tablet TAKE 1 TABLET BY MOUTH TWICE A DAY NEEDED FOR PAIN FOR UP TO 5 DAYS active Not Available Not Available No t Available amoxicill in 875 mg-potass ium clavulana te 125 mg tablet TAKE 1 TABLET BY MOUTH TWICE A DAY FOR 10 DAYS 04/25 completed Not Available Not Available Not Available escitalop manjeet 10 mg tablet TAKE 1 TABLET BY MOUTH EVERY DAY FOR 90 DAYS 04/25 completed Not Available Not Available Not Available Vitamin D3 25 mcg (1,000 unit) capsule TAKE 1 CAPSULE BY MOUTH DAILY FOR 90 DAYS active Not Available Not Available No t Available escitalop manjeet 5 mg tablet 04/25 completed Medicati on ID: [id number] B rand Name: escitalo pram oxalate Send Method: E-Prescr ibed Sub s Allowed: subs OK Medic ationGen ericName : escitalo pram oxalate Not Available Not Available Not Available azelastin e 137 mcg-fluti casone 50 mcg/spray nasal spray [place] 2 sprays twice a day by intranas al route. 2023 active Not Available Not Available Not Avai lable Kyleena 17.5 mcg/24 hr (up to 5 years) 19.5 mg intrauter ine device 04/25 completed Medicati on ID: [id number] B rand Name: Kyleena Send Method: E-Prescr ibed Sub s Allowed: subs OK Medic ationGen ericName : Kyleena Not Available Not Available Not Available Vitals None Recorded Social History None recorded. Functional Status None recorded. Mental Status None recorded. Family History Nothing Reported. Medical History No medical history recorded. Gynecological HistoryNo gynecological history recorded. Obstetrics History GPAL:G 0 P 0 0 0 0 Past Encounters Encounter ID Performer Location Encounter Start Date Encounter Closed Date Diagnosis/Indication Diagnosis SNOMED-CT Code Diagnosis ICD10 Code Diagnosis Note [id number] GERALDINE FARRAR MD [facility] [address] [address] 09/13/2024 08:27:19 09/13/2024 09:09:33 Atypical facial pain 59260053 G50.1 Anterior epistaxis 26624 4002 R04.0 Nasal congestion 4075866 0 R09.81 [id number] KATHERINE CRAVEN [facility] [address] [place] [address] 09/21/2024 17:00:55 09/21/2024 17:30:24 Perennial allergic rhinitis 585814523 J30.89 [id number] ELIAS LAL RN Allergy [address] [place] [address] 09/28/2024 17:10:30 09/28/2024 17:16:06 Perennial allergic rhinitis 590146137 J30.89 [id number] ELIAS LAL RN Allergy [address] [facility], [address] [facility] [place] [address] 10/07/2024 10:34:03 10/07/2024 11:24:52 Perennial allergic rhinitis 362658370 J30.89 [id number] ELIAS LAL RN Allergy 100 [facility], [address] [facility] [place] [address] 10/12/2024 17:24:01 10/12/2024 17:40:04 Perennial allergic rhinitis 028816861 J30.89 Health Concerns Section Related Observation LastModified by Organization Detai ls LastModified Time None Recorded Concern Status LastModified by Organization Details LastModified Time None Recorded Payers Encounter Date Sequence Insurance Name Policy Number Policy Ruby Covered Member ID Ruby Member ID Guarantor Name 10/12/2024 1 [facility] (O) [id number] Fozia Pedroza [id number] Fozia Pedroza OBGyn Episode No OBEpisode recorded.
--- OUTSIDE RECORDS SUMMARY | 2024-10-27 08:35 | XMS_ITS | Continuity of Care Document ---
Author Organization [place] - [facility], Allergy Address [address] [address] Care Team Providers Care Quantitative Analyst Marketing Name Role Phone HELEN JAY Primary Care Provider Assessment Encounter Date Assessment Date Assessment LastModified by Organization Details LastModified Time 10/07/2024 10/07/2024 Visit With: Thuy Pedroza Use of Antihistamine s: No If yes: Vial Test Change in medications: No If yes ? ? ? Increase in asthma symptoms No Asthma Hx If yes, inhaler use: Reaction to last injections: No If yes: ? ? ? Allergy Symptoms: Other: ? ? ? Missed: Dose Aware of Vial Test Notes:? ? ? [email or web address] Not available 10/07/2024 11:24:26 Plan of Treatment Reminders Order Date Submit Date Provider Last Modified By Organization Details Last Modified Time Details Appointments [facility]- Allergy f-up 6mon 2024 02:30P M GEO [...] Address Organization Details Recorded Time Acute sinusitis 41918257 Active 2021 Other acute sinusitis ; Note: Date Diagnosed : 04/11/2022 4:55 PM (J01.80) Not Available [facility] 03:18:19 Allergic rhinitis 13333211 Active 2023 Allergic rhinitis: Due to other [...] 3:33 PM (477.8) ; Start Date : 3 Allergi c rhinitis: Due to other allergen; Note: Date Diagnosed : 01/29/2023 4:10 PM (477.8) Note: Date Diagnosed : 01/29/2023 4:10 PM (477.8) ; Start Date : Allergi c rhinitis: Due to other allergen; Note: Date Diagnosed : 12/05/2022 1:31 PM (477.8) Note: Date Diagnosed : 12/05/2022 1:31 PM (477.8) ; Start Date : 3 [...] ; Start Date : 3 Not Available [facility] 4 01:25:08 Bilateral disorder of Eustachia n tubes 67334714137 48989 Active 2020 Other specified disorders of Eustachia n tube, bilateral ; Note: Date Diagnosed : 1 11:11 AM (H69.83) Not Available [facility] 4 03:18:18 Recurrent acute sinusitis 913743258 Active 2021 Other acute recurrent sinusitis ; Note: Date Diagnosed : 2 5:29 PM (J01.81) Not Available [facility] 4 03:18:19 Pain of right temporoma ndibular joint 61892923848 745336 Active 2020 Arthralgi a of right temporoma ndibular joint; Note: Date Diagnosed : 1 11:48 AM (M26.621) Not Available [facility] 4 03:18:19 Allergic rhinitis caused by pollen 57957591 Active 2022 Allergic rhinitis due to pollen; Note: Date Diagnosed : 09/26/2022 4:51 PM (J30.1) Not Available [facility] 4 03:18:19 Perennial allergic rhinitis 188238100 Active 2023 [facility] [address], [place], [place], [address] , [place] - [facility] 4 17:05:30 Acute maxillary sinusitis 99345530 Active 2023 GEO CASTILLO MD [address], [place], [place], [address] , [place] - [facility] 4 16:53:35 Chronic sinusitis 82474394 Active 2023 GEO CASTILLO MD [address], [place], [place], [address] , [place] - [facility] 4 15:10:31 Nasal congestio n 60685252 Active 2023 GERALDINE FARRAR MD [address], [place], [place], [address] , [place] - [facility] 4 10:22:29 Atypical facial pain 92995155 Active 2023 GERALDINE FARRAR MD [address], [place], [place], [address] , [place] - [facility] 4 21:56:24 Seasonal allergic rhinitis 498717405 Active 2023 GEO CASTILLO MD [address], [place], [address] , [place] - [facility] 07:59:00 Anterior epistaxis 784253896 Active 2024 GERALDINE FARRAR MD [address], [place], [address] , [place] - [facility] 09:42:15 Problem Notes None recorded. Procedures Surgical History Date Name Laterality Status Provider Name and Address Organization Details Recorded Time 10/12/19 25 Allergy Immunotherapy Injections completed ELIAS LAL RN [facility] [place],[address] [facility], [place], [address], [place] - [facility] 10/12/2024 17:39:46 10/07/19 25 Allergy Immunotherapy Injections completed ELIAS LAL RN 100 [facility] [place],[address] [facility], [place], [address], [place] - [facility] 10/07/2024 11:24:17 09/28/19 25 Allergy Immunotherapy Injections completed ELIAS LAL RN 100 [facility] [place],[address] [facility], [place], [address], [place] - [facility] 09/28/2024 17:15:28 09/21/19 25 Allergy Immunotherapy Injections completed KATHERINE CRAVEN [address] [facility] [place] [address], [address], [place] - [facility] 09/21/2024 17:29:47 06/23/20 24 Allergy Immunotherapy Injections completed KATHERINE CRAVEN [address] [facility] [facility], [place], [address], [place] - [facility] 06/23/2024 16:33:26 06/01/20 24 Allergy Immunotherapy Injections completed KATHERINE WEATHERS [address] [facility], [place], [address], [place] - [facility] 06/01/2024 11:14:57 05/11/20 24 Allergy Immunotherapy Injections completed KATHERINE WEATHERS [address] [facility] [address] [place] [address], [address], [place] - [facility] 05/11/2024 17:20:23 04/21/20 24 Allergy Immunotherapy Injections completed KATHERINE CRAVEN [address], [place], [address], [facility] - [facility] 04/21/2024 16:20:17 04/13/20 24 Allergy Immunotherapy Injections completed ABHIJEET DANIELS, RMA [address], [place], [address], [facility] - [facility] 04/13/2024 16:57:24 04/07/20 24 Allergy Immunotherapy Injections completed THUY PEDROZA RMA [address] [facility], [place], [address], [facility] - [facility] 04/07/2024 16:25:04 03/02/20 24 Allergy Immunotherapy Injections completed ABHIJEET DANIELS, RMA [address] [facility] [place] [address], [address], [facility] - [facility] 03/02/2024 14:30:05 02/25/20 24 Allergy Immunotherapy Injections completed ELIAS LAL RN [address] [facility] [facility], [place], [address], [facility] - [facility] 02/25/2024 15:26:18 01/19/20 24 Allergy Immunotherapy Injections completed KATHERINE CRAVEN [address] [facility] [place] [address], [address], [facility] - [facility] 01/19/2024 15:42:11 12/30/19 24 Allergy Immunotherapy Injections completed ABHIJEET DANIELS RMA [address] [facility], [place], [address], [facility] - [facility] 12/30/2023 17:05:54 Imaging Results None recorded. Procedure [...] mg capsule 05/30 completed Medicati on ID: [id number] D uration Value: 14 Brand Name: doxycycl [...] mg tablet 04/25 completed Medicati on ID: [id number] B rand Name: escitalo pram oxalate Send Method: E-Prescr ibed Sub s Allowed: subs OK Medic ationGen ericName : escitalo pram oxalate Not Available Not Available Not Available azelastin e 137 mcg-fluti casone 50 mcg/spray nasal spray [place] 2 sprays twice a day by intranas al route. 2023 active Not Available Not Available Not Avai lable Kyleena 17.5 mcg/24 hr (up to 5 years) 19.5 mg intrauter ine device 04/25 completed Medicati on ID: [id number] B rand Name: Kyleena Send Method: E-Prescr [...] SNOMED-CT Code Diagnosis ICD10 Code Diagnosis Note [id number] GERALDINE FARRAR MD [facility] [address] [address] 09/13/2024 08:27:19 09/13/2024 09:09:33 Atypical facial pain 66271132 G50.1 Anterior epistaxis 19046 4002 R04.0 Nasal congestion 0894168 0 R09.81 [id number] KATHERINE CRAVEN Allergy [address] [place] [address] 09/21/2024 17:00:55 09/21/2024 17:30:24 Perennial allergic rhinitis 313318086 J30.89 [id number] ELIAS LAL RN Allergy [address] [place] [address] 09/28/2024 17:10:30 09/28/2024 17:16:06 Perennial allergic rhinitis 508043458 J30.89 [id number] ELIAS LAL, group program manager [address] [place] [address] 100 [facility] [place] [address] 10/07/2024 10:34:03 10/07/2024 11:24:52 Perennial allergic rhinitis 613368576 J30.89 Health Concerns Section Related Observation LastModified by Organization Detai ls LastModified Time None Recorded Concern Status LastModified by Organization Details LastModified Time None Recorded Payers Encounter Date Sequence Insurance Name Policy Number Policy Ruby Covered Member ID Ruby Member ID Guarantor Name 10/07/2024 1 [facility] (O) [id number] Fozia Pedroza [id number] Fozia Pedroza OBGyn Episode No OBEpisode recorded.
--- OUTSIDE RECORDS SUMMARY | 2024-10-27 08:35 | XMS_ITS | Continuity of Care Document ---
Author Organization [place] - [facility], Allergy Address [address] [address] Care Team Providers Care Dress Marker Name Role Phone HELEN JAY Primary Care Provider [phone] Assessment Encounter Date Assessment Date Assessment LastModified by Organization Details LastModified Time 09/28/2024 09/28/2024 Visit With: Thuy Pedroza Use of Antihistamine s: No If yes: Vial Test Change in medications: No If yes ? ? ? Increase in asthma symptoms No Asthma Hx If yes, inhaler use: Reaction to last injections: No If yes: ? ? ? Allergy Symptoms: Other: ? ? ? Missed: Dose Aware of Vial Test Notes:? ? ? [email or web address] Not available 09/28/2024 17:15:40 Plan of Treatment Reminders Order Date Submit Date Provider Last Modified By Organization Details Last Modified Time Details Appointments [facility]- Allergy f-up 6mon 2024 02:30P M GEO [...] Address Organization Details Recorded Time Acute sinusitis 48720632 Active 2021 Other acute sinusitis ; Note: Date Diagnosed : 04/11/2022 4:55 PM (J01.80) Not Available [facility] 03:18:19 Allergic rhinitis 79704378 Active 2023 Allergic rhinitis: Due to other [...] ; Start Date : 3 Not Available [facility] 4 01:25:08 Bilateral disorder of Eustachia n tubes 70339198165 67974 Active 2020 Other specified disorders of Eustachia n tube, bilateral ; Note: Date Diagnosed : 1 11:11 AM (H69.83) Not Available [facility] 4 03:18:18 Recurrent acute sinusitis 447953965 Active 2021 Other acute recurrent sinusitis ; Note: Date Diagnosed : 2 5:29 PM (J01.81) Not Available [facility] 4 03:18:19 Pain of right temporoma ndibular joint 47331390258 946324 Active 2020 Arthralgi a of right temporoma ndibular joint; Note: Date Diagnosed : 1 11:48 AM (M26.621) Not Available [facility] 4 03:18:19 Allergic rhinitis caused by pollen 66282156 Active 2022 Allergic rhinitis due to pollen; Note: Date Diagnosed : 09/26/2022 4:51 PM (J30.1) Not Available [facility] 4 03:18:19 Perennial allergic rhinitis 116579339 Active 2023 [facility] [address], [place], [place], [address] , [place] - [facility] 4 17:05:30 Acute maxillary sinusitis 99938392 Active 2023 GEO CASTILLO MD [address], [place], [place], [address] , [place] - [facility] 4 16:53:35 Chronic sinusitis 81205448 Active 2023 GEO CASTILLO MD [address], [place], [place], [address] , [place] - [facility] 4 15:10:31 Nasal congestio n 81702977 Active 2023 GERALDINE FARRAR MD [address], [place], [place], [address] , [place] - [facility] 4 10:22:29 Atypical facial pain 58737337 Active 2023 GERALDINE FARRAR MD [address], [place], [place], [address] , [place] - [facility] 4 21:56:24 Seasonal allergic rhinitis 362647288 Active 2023 GEO CASTILLO MD [address], [place], [address] , [place] - [facility] 07:59:00 Anterior epistaxis 602482158 Active 2024 GERALDINE FARRAR MD [address], [place], [address] , [place] - [facility] 09:42:15 Problem Notes None recorded. Procedures Surgical History Date Name Laterality Status Provider Name and Address Organization Details Recorded Time 10/12/19 25 Allergy Immunotherapy Injections completed ELIAS LAL RN 100 [facility] [place],[address] [facility], [place], [address], [place] - [facility] 10/12/2024 17:39:46 10/07/19 25 Allergy Immunotherapy Injections completed ELIAS LAL RN 100 [facility] [place],[address] [facility], [place], [address], [place] - [facility] 10/07/2024 11:24:17 09/28/19 25 Allergy Immunotherapy Injections completed ELIAS LAL RN 100 [facility] [place],[address] [facility], [place], [address], [place] - [facility] 09/28/2024 17:15:28 09/21/19 25 Allergy Immunotherapy Injections completed KATHERINE CRAVEN [address] [facility] [address] [place] [address], [address], [place] - [facility] 09/21/2024 17:29:47 06/23/20 24 Allergy Immunotherapy Injections completed KATHERINE CRAVEN [address] [facility] [address] [facility], [place], [address], [place] - [facility] 06/23/2024 16:33:26 06/01/20 24 Allergy Immunotherapy Injections completed KATHERINE WEATHERS [address] [facility], [place], [address], [place] - [facility] 06/01/2024 11:14:57 05/11/20 24 Allergy Immunotherapy Injections completed KATHERINE WEATHERS [address] [facility] [address] [place] [address], [address], [place] - [facility] 05/11/2024 17:20:23 04/21/20 24 Allergy Immunotherapy Injections completed KATHERINE CRAVEN [address], [place], [address], [facility] - [facility] 04/21/2024 16:20:17 04/13/20 24 Allergy Immunotherapy Injections completed ABHIJEET DANIELS, RMA [address], [place], [address], [facility] - [facility] 04/13/2024 16:57:24 04/07/20 24 Allergy Immunotherapy Injections completed THUY PEDROZA RMA [address] [facility] [address] [facility], [place], [address], [facility] - [facility] 04/07/2024 16:25:04 03/02/20 24 Allergy Immunotherapy Injections completed ABHIJEET DANIELS, RMA [address] [facility] [address] [place] [address], [address], [facility] - [facility] 03/02/2024 14:30:05 02/25/20 24 Allergy Immunotherapy Injections completed ELIAS LAL RN [address] [facility] [address] [facility], [place], [address], [facility] - [facility] 02/25/2024 15:26:18 01/19/20 24 Allergy Immunotherapy Injections completed KATHERINE CRAVEN [address] [facility] [place] [address], [address], [facility] - [facility] 01/19/2024 15:42:11 12/30/19 24 Allergy Immunotherapy Injections completed ABHIJEET DANIELS RMA [address] [facility] [address], [place], [address], [facility] - [facility] 12/30/2023 17:05:54 Imaging Results None recorded. Procedure [...] mg capsule 05/30 completed Medicati on ID: [id number] D uration Value: 14 Brand Name: doxycycl [...] mg tablet 04/25 completed Medicati on ID: [id number] B rand Name: escitalo pram oxalate Send Method: E-Prescr ibed Sub s Allowed: subs OK Medic ationGen ericName : escitalo pram oxalate Not Available Not Available Not Available azelastin e 137 mcg-fluti casone 50 mcg/spray nasal spray [place] 2 sprays twice a day by intranas al route. 2023 active Not Available Not Available Not Avai lable Kyleena 17.5 mcg/24 hr (up to 5 years) 19.5 mg intrauter ine device 04/25 completed Medicati on ID: [id number] B rand Name: Kyleena Send Method: E-Prescr [...] SNOMED-CT Code Diagnosis ICD10 Code Diagnosis Note [id number] GERALDINE FARRAR MD [facility] [address] [address] 09/13/2024 08:27:19 09/13/2024 09:09:33 Atypical facial pain 67732788 G50.1 Anterior epistaxis 45201 4002 R04.0 Nasal congestion 1799307 0 R09.81 [id number] KATHERINE CRAVEN Allergy [address] [place] [address] 09/21/2024 17:00:55 09/21/2024 17:30:24 Perennial allergic rhinitis 067097679 J30.89 [id number] ELIAS LAL RN Allergy [address] [place] [address] 09/28/2024 17:10:30 09/28/2024 17:16:06 Perennial allergic rhinitis 279192289 J30.89 Health Concerns Section Related Observation LastModified by Organization Detai ls LastModified Time None Recorded Concern Status LastModified by Organization Details LastModified Time None Recorded Payers Encounter Date Sequence Insurance Name Policy Number Policy Ruby Covered Member ID Ruby Member ID Guarantor Name 09/28/2024 1 [facility] (O) [id number] Fozia Pedroza [id number] Fozia Pedroza OBGyn Episode No OBEpisode recorded.
--- OUTSIDE RECORDS SUMMARY | 2024-10-27 08:36 | XMS_ITS | Data Portability ---
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 Atypical facial pain Fozia reports ongoing facial pain, which can occur on the right or left side of her face. She has no associated nasal congestion, nasal infections. Prior CT imaging has been normal. Her symptoms have not responded to astlelin, budesonide irrigations, or naproxen. Given her findings and lack of response to local inflammatory therapy, I suspect a neurologic cause for her symptoms. We discussed options for management including observation, oral neuromodulators, or neurologic evaluation. Given her history of migraines, she would like to proceed with neurologic evaluation for her symptoms. 2. Epistaxis I had a long discussion with the patient regarding their complaint, examination and diagnosis. We discussed that epistaxis is a common problem usually resulting from nasal irritations and dryness. It is often exacerbated in the winter time due to dryness from heating, but can be problematic due to trauma or aberrant anatomy. The purpose of examination is to identify the source of bleeding but also to make sure there is not a more concerning underlying problem causing the nosebleeding. We discussed methods to prevent nose bleeds including moisturing the nose, application of emollients such as vaseline, and humidification of the air. Techniques for treatment of acute bleeding were discussed and management in the event of bleeding that does not stop was outlined. -Vaseline intranasally BID -Humidifier for the bedroom -Saline nasal spray as needed to keep the nose moist -No digital manipulation -Use afrin 1 spray and apply pressure for 20 minutes for an acute bleeding episode -If bleeding does not resolve with conservative measures the patient was encouraged to go the nearest emergency room for treatment 3. Nasal Congestion Continue astelin spray as currently prescribed and continue allergy shots. [email or web address] Not available 09/13/2024 09:42:11 09/21/2024 09/21/2024 Visit With: KATHERINE Cheng Use of Antihistamines: No If yes: Vial Test Yes Change in medications: No If yes ? ? ? Increase in asthma symptoms If yes, inhaler use: Reaction to last injections: No If yes: ? ? ? Allergy Symptoms: Other: ? ? ? Missed: Dose Aware of Vial Test Notes:? ? ? [email or web address] Not available 09/21/2024 17:29:57 09/28/2024 09/28/2024 Visit With: Cody Pedroza Use of Antihistamines: No If yes: Vial Test Change in medications: No If yes ? ? ? Increase in asthma symptoms No Asthma Hx If yes, inhaler use: Reaction to last injections: No If yes: ? ? ? Allergy Symptoms: Other: ? ? ? Missed: Dose Aware of Vial Test Notes:? ? ? [email or web address] Not available 09/28/2024 17:15:40 10/07/2024 10/07/2024 Visit With: Cody Pedroza Use of Antihistamines: No If yes: Vial Test Change in medications: No If yes ? ? ? Increase in asthma symptoms No Asthma Hx If yes, inhaler use: Reaction to last injections: No If yes: ? ? ? Allergy Symptoms: Other: ? ? ? Missed: Dose Aware of Vial Test Notes:? ? ? [email or web address] Not available 10/07/2024 11:24:26 10/12/2024 10/12/2024 Visit With: Danyelle Lal RN Use of Antihistamines: No If yes: Vial Test Change in [...] Organization Details Last Modified Time Details Appointments Establish ed- Allergy f-up 6mon 2024 02:30P M GEO Teran MD Not available Not available Not available Lab None recorded. Referral neurologi st referral - atypical right facial pain, history of migraines 2024 025 [email or web address] [facility], [address] [place] [address], [place], [address], 10/24/2024 15:44:59 Procedures None recorded. Surgeries None recorded. Imaging None recorded. Medication Orders None recorded. Patient TargetsNo targets recorded. Patient InstructionsNo instructions recorded. Reason for Referral Neurologist Referral for Aty pical facial pain atypical right facial pain, history of migraines Referring Physician: Lena Farrar, Otolaryngology, Encounter Date: 09/13/2024 Problems Name Problem SNOMED Code Status Onset Date Resolution Date Notes Provider Name and Address Organization Details Recorded Time Acute sinusitis 36436879 Active 2021 Other acute sinusitis ; Note: Date Diagnosed : 04/11/2022 4:55 PM (J01.80) Not Available [facility] 4 03:18:19 Allergic rhinitis 70394365 Active 2023 Allergic rhinitis: Due to other allergen; Note: Date Diagnosed : 08/26/2023 4:34 PM (477.8) Note: Date Diagnosed : 08/26/2023 4:34 PM (477.8) Allergi c rhinitis: Due to other allergen; Note: Date Diagnosed : 08/21/2023 2:09 PM (477.8) Note: Date Diagnosed : 08/21/2023 2:09 PM (477.8) ; Start Date : 4 Allergi c rhinitis: Due to other allergen; Note: Date Diagnosed : 3 4:00 PM (477.8) Note: Date Diagnosed : 3 4:00 PM (477.8) ; Start Date : 3 Allergi c rhinitis: Due to other allergen; Note: Date Diagnosed : 3 4:22 PM (477.8) Note: Date Diagnosed : 4:22 PM (477.8) ; Start Date : 3 [...] 12:06 PM (477.8) ; Start Date : 3 Allergi c rhinitis: Due to other allergen; Note: Date Diagnosed : 04/23/2023 12:13 PM (477.8) Note: Date Diagnosed : 04/23/2023 12:13 PM (477.8) ; Start Date : 3 [...] 2:26 PM (477.8) ; Start Date : Allergi c rhinitis: Due to other allergen; Note: Date Diagnosed : 02/18/2023 2:43 PM (477.8) Note: Date Diagnosed : 02/18/2023 2:43 PM (477.8) ; Start Date : Allergi c rhinitis: Due to other allergen; Note: Date Diagnosed : 02/04/2023 3:33 PM (477.8) Note: Date Diagnosed : 02/04/2023 3:33 PM (477.8) ; Start Date : Allergi c rhinitis: Due to other allergen; Note: Date Diagnosed : 01/29/2023 4:10 PM (477.8) Note: Date Diagnosed : 01/29/2023 4:10 PM (477.8) ; Start Date : 3 Allergi c rhinitis: Due to other allergen; Note: Date Diagnosed : 12/05/2022 1:31 PM (477.8) Note: Date Diagnosed : 12/05/2022 1:31 PM (477.8) ; Start Date : 3 Allergi c rhinitis: Due to other allergen; Note: Date Diagnosed : 11/13/2022 3:57 PM (477.8) Note: Date Diagnosed : 11/13/2022 3:57 PM (477.8) ; Start Date : 3 Allergi c rhinitis: Due to other allergen; Note: Date Diagnosed : 10/23/2022 4:03 PM (477.8) Note: Date Diagnosed : 10/23/2022 4:03 PM (477.8) ; Start Date : 3 Not Available [facility] 4 01:25:08 Bilateral disorder of Eustachia n tubes [id number] 57598 Active 2020 Other specified disorders of Eustachia n tube, bilateral ; Note: Date Diagnosed : 1 11:11 AM (H69.83) Not Available [facility] 4 03:18:18 Recurrent acute sinusitis 410187099 Active 2021 Other acute recurrent sinusitis ; Note: Date Diagnosed : 2 5:29 PM (J01.81) Not Available [facility] 4 03:18:19 Pain of right temporoma ndibular joint [id number] 452771 Active 2020 Arthralgi a of right temporoma ndibular joint; Note: Date Diagnosed : 1 11:48 AM (M26.621) Not Available [facility] 4 03:18:19 Allergic rhinitis caused by pollen 54277717 Active 2022 Allergic rhinitis due to pollen; Note: Date Diagnosed : 09/26/2022 4:51 PM (J30.1) Not Available [facility] 4 03:18:19 Perennial allergic rhinitis 889429730 Active 20[address] [address], [place], [address] , [facility] - [facility] [place] 4 17:05:30 Acute maxillary sinusitis 96445994 Active 2023 GEO CASTILLO MD [facility] [place],[address], [place], [address] , [facility] - [facility] [place] 4 16:53:35 Chronic sinusitis 27767217 Active 2023 GEO CASTILLO MD [address] [facility] [place] [facility], [place], [address] , [facility] - [facility] [place] 4 15:10:31 Nasal congestio n 24725422 Active 2023 LENA FARRAR MD [address] [facility] [place] [address], [place], [address] , [place] - [facility] 4 10:22:29 Atypical facial pain 08203629 Active 2023 LENA FARRAR MD 100 [facility],[place] [facility], [place], [address] , [facility] - [facility] [place] 4 21:56:24 Seasonal allergic rhinitis 900083889 Active 2023 GEO CASTILLO MD 100 [facility] [place] [address], [place], [address] , [facility] - [facility] [place] 4 07:59:00 Anterior epistaxis 546611874 Active 2024 LENA FARRAR MD [address] [place], [place] [address]on [place] [facility], [place], [address] , [facility] - [facility] [place] 5 09:42:15 Problem Notes None recorded. Procedures Surgical History Date Name Laterality Status Provider Name and Address Organization Details Recorded Time 10/12/19 25 Allergy Immunotherapy Injections completed ELIAS LAL RN [address] [facility] [place] [facility], [place], [address], [facility] - [facility] [place] 10/12/2024 17:39:46 10/07/19 25 Allergy Immunotherapy Injections completed ELIAS LAL RN [address] [place], [place] [address], [place], [address], [facility] - [facility] [place] 10/07/2024 11:24:17 09/28/19 25 Allergy Immunotherapy Injections completed ELIAS LAL RN [address] [facility], [place], [address], [facility] - [facility] [place] 09/28/2024 17:15:28 09/21/19 25 Allergy Immunotherapy Injections completed KATHERINE CRAVEN [address] [facility], [place], [address], [place] - [facility] 09/21/2024 17:29:47 06/23/20 24 Allergy Immunotherapy Injections completed KATHERINE CRAVEN [address] [facility] [place],[address] [place], [address], [place] [facility] 06/23/2024 16:33:26 06/01/20 24 Allergy Immunotherapy Injections completed KATHERINE CHENG 100 [facility] [place],[address] [place] [address], [address], [facility] - [facility] [place] 06/01/2024 11:14:57 05/11/20 24 Allergy Immunotherapy Injections completed CHETNA CHENGA [address] [facility] [place] [address], [address], [facility] - [facility] [place] 05/11/2024 17:20:23 04/21/20 24 Allergy Immunotherapy Injections completed KATHERINE CRAVEN 100 [facility] [place],[address] [place] [address], [address], [facility] - [facility] [place] 04/21/2024 16:20:17 04/13/20 24 Allergy Immunotherapy Injections completed ABHIJEET DANIELS RMA [address] [facility] [place] [address], [address], [place] - [facility] [place] 04/13/2024 16:57:24 04/07/20 24 Allergy Immunotherapy Injections completed KATHERINE CRAVEN [address] [facility], [place], [address], [place] [facility] 04/07/2024 16:25:04 03/02/20 24 Allergy Immunotherapy Injections completed ABHIJEET DANIELS RMA [address] [place],[address], [place], [address], [facility] - [facility] [place] 03/02/2024 14:30:05 02/25/20 24 Allergy Immunotherapy Injections completed ELIAS LAL RN 100 [facility] [place],[address], [place], [address], [facility] - [facility] [place] 02/25/2024 15:26:18 01/19/20 24 Allergy Immunotherapy Injections completed MICHAEL PEDROZA [facility] [address] [facility], [place], [address], [facility] - [facility] 01/19/2024 15:42:11 12/30/19 24 Allergy Immunotherapy Injections completed ABHIJEET DANIELS, [facility] [address] [facility] [place],[address], [place], [address], [facility] - [facility] 12/30/2023 17:05:54 Imaging Results None recorded. Procedure [...] mg capsule 05/30 completed Medicati on ID: [id number] D uration Value: 14 Brand Name: doxycycl [...] mg tablet 04/25 completed Medicati on ID: [id number] B rand Name: escitalo pram oxalate Send Method: E-Prescr ibed Sub s Allowed: subs OK Medic ationGen ericName : escitalo pram oxalate Not Available Not Available Not Available azelastin e 137 mcg-fluti casone 50 mcg/spray nasal spray [place] 2 sprays twice a day by intranas al route. 2023 active Not Available Not Available Not Avai lable Kyleena 17.5 mcg/24 hr (up to 5 years) 19.5 mg intrauter ine device 04/25 completed Medicati on ID: [id number] B rand Name: Kyleena Send Method: E-Prescr ibed Sub s Allowed: subs OK Medic ationGen ericName : Clive Not Available Not Available Not Available Vitals Date Recorded Body height Body mass index (BMI) Body weight Provider Name and Address Organization Details Last Updated DateTime 09/13/2024 157.48 cm 24.7 kg/m2 23655.97 g Helen Andrew [place] [facility] 09/13/2024 08:50:59 Social History None recorded. Functional Status None recorded. Mental Status None recorded. Family History Nothing Reported. Medical History No medical history recorded. Gynecological HistoryNo gynecological history recorded. Obstetrics History GPAL:G 0 P 0 0 0 0 Past Encounters Encounter ID Performer Location Encounter Start Date Encounter Closed Date Diagnosis/Indication Diagnosis SNOMED-CT Code Diagnosis ICD10 Code Diagnosis Note [id number] GEO CASTILLO MD Allergy [address] [place] [address] it 100 [place] [address] 12/30/2023 17:04:11 01/01/2024 15:55:03 Perennial allergic rhinitis 090835962 J30.89 [id number] MICHAEL PEDROZA [facility] Allergy [address] [place] [address] 100 [place] [address] 01/19/2024 15:40:29 01/19/2024 16:16:57 Perennial allergic rhinitis 963489632 J30.89 [id number] ELIAS LAL RN Allergy [address] [place] [address] 100 [place] [address] 02/25/2024 14:05:43 02/25/2024 15:27:47 Perennial allergic rhinitis 372262580 J30.89 [id number] ABHIJEET DIMAS [facility] Allergy [address] [place] [address] it 100 [place] [address] 03/02/2024 14:21:39 03/02/2024 14:30:52 Perennial allergic rhinitis 535241257 J30.89 [id number] MICHAEL PEDROZA [facility] Allergy [address] [place] [address] ite 100 [facility] [address] 04/07/2024 15:37:38 04/08/2024 10:54:39 Perennial allergic rhinitis 633546377 J30.89 [id number] ABHIJEET DIMAS [facility] Allergy [address] [place] [address] it 100 [facility] [place] [address] 04/13/2024 16:47:55 04/13/2024 17:01:37 Perennial allergic rhinitis 813943767 J30.89 [id number] MICHAEL GERHARD [facility] Allergy [address] [place] [address] [place] [address] 04/21/2024 15:56:33 04/22/2024 10:43:15 Perennial allergic rhinitis 561846637 J30.89 [id number] GEO CASTILLO MD [facility] [address] [address] 04/26/2024 15:57:38 04/26/2024 16:59:19 Acute maxillary sinusitis 77669721 J01.00 she has acute sinusitis based on history. I will treat empiricall y with abx and prednisone . she will discuss with her PCP given her DM before starting prednisone . I discussed the risk of elevated blood sugars and avascular hip necrosis. Perennial allergic rhinitis 260925603 J30.89 The patient is benefiting from immunother apy and should continue. No local or systemic reactions. [id number] ABHIJEET DIMAS [facility] Allergy [address] [place] [address] [place] [address] 05/11/2024 17:18:22 05/11/2024 17:23:23 Perennial allergic rhinitis 567866959 J30.89 [id number] LENA FARRAR MD [facility] [address] [address] 06/01/2024 09:06:05 06/01/2024 10:25:38 Allergic rhinitis 98798994 J30.9 Nasal congestion 8620674 0 R09.81 Atypical facial pain 713 02500 G50.1 [id number] [facility] [address] [place] [address] [place] [address] 06/01/2024 11:13:32 06/01/2024 11:16:08 Perennial allergic rhinitis 604041831 J30.89 [id number] MICHAELBony PEDROZA [facility] Allergy [address] [place] [address] 06/23/2024 16:31:52 06/24/2024 11:32:20 Perennial allergic rhinitis 576733315 J30.89 [id number] GEO CASTILLO MD [facility] on [address] [place] [address] 07/08/2024 07:55:18 07/08/2024 12:38:42 Seasonal allergic rhinitis 863710973 J30.2 I suggested she try azelastine which I sent to her pharmacy. If she does not improve we could consider repeating allergy testing. [id number] LENA FARRAR MD [facility] [address] [address] 09/13/2024 08:27:19 09/13/2024 09:09:33 Atypical facial pain 55315751 G50.1 Anterior epistaxis 93569 4002 R04.0 Nasal congestion 0921589 0 R09.81 [id number] MICHAEL PEDROZA [facility] [address] [place] [address] 09/21/2024 17:00:55 09/21/2024 17:30:24 Perennial allergic rhinitis 829833555 J30.89 [id number] ELIAS LAL RN Allergy [address] [place] [address] 09/28/2024 17:10:30 09/28/2024 17:16:06 Perennial allergic rhinitis 104201937 J30.89 [id number] ELIAS LAL RN Allergy [address] [place] [address] 10/07/2024 10:34:03 10/07/2024 11:24:52 Perennial allergic rhinitis 004083821 J30.89 [id number] ELIAS LAL RN Allergy [address] [place] [address] 10/12/2024 17:24:01 10/12/2024 17:40:04 Perennial allergic rhinitis 968204662 J30.89 Health Concerns Section Related Observation LastModified by Organization Detai ls LastModified Time None Recorded Concern Status LastModified by Organization Details LastModified Time None Recorded Advance Directives Directive None Recorded Payers Encounter Date Sequence Insurance Name Policy Number Policy Ruby Covered Member ID Ruby Member ID Guarantor Name 09/13/2024 1 [facility] [employer] - [employer] (HMO) [id number] Fozia Pedroza [id number] Foziara Pedroza 09/21/2024 1 [facility] [employer] - [employer] (HMO) [id number] Fozia Pedroza [id number] Fozia Gerhard 09/28/2024 1 [facility] [employer] - [employer] (HMO) [id number] Foziara Adonis Pedroza [id number] Foziara Pedroza 10/07/2024 1 [facility] [employer] - [employer] (HMO) [id number] Foziara Adonis Pedroza [id number] Foziara Pedroza 10/12/2024 1 [facility] [employer] - [employer] (HMO) [id number] Foziara Adonis Pedroza [id number] Foziara Pedroza Notes Date Note Type Note Provider Name and Address Organization Details Recorded Time 09/13/2024 text/html This is a 44 yea r old woman who presents today with left facial pain and nasal congestion. She was previously thought to have acute sinusitis, and was treated with antibiotics. The only medications which have helped her symptoms include Prednisone and naproxen. She was last seen in person 05/2024, at which time a CT sinus was obtained which showed no thickening of the paranasal sinuses. At that time, she was started on budesonide irrigations. The budesonide irrigations did not help her symptoms. She had a teleheatlh visit with Dr. Castillo in June 2024, and she was started on astelin. The astelin did help her nasal congestion. She now has had recent epistaxis on the right side. This happens about once weekly and occurs in droplets. She continues to have facial pain - today she describes this on the right side of her face. The pain is always there. It does not change with any intervention. She has a history of migraines - treated in the past with excedrin and antiinflammatories . She has never seen a neurologist for this. LENA FARRAR MD [address] [place] [address], [address], [facility] - [facility] 09/13/2024 09:43:03 OBGyn Episode No OBEpisode recorded.
--- OUTSIDE RECORDS SUMMARY | 2024-10-27 08:36 | XMS_ITS | Clinical Summary ---
Author Organization [facility] [address] [facility][1] lding Address [address] [facility] [place] [address] Phone Care Team Providers Care Care Transitions Nurse Name Role Phone Kezia Jaime MD Primary Care Provider [phone] Allergies Active Allergy Reactions Criticality Noted Date Comments Shellfish Containing Products 2019 Shellfish Derived Hives Medium 02/13/2020 Medications amitriptyline (ELAVIL) 10 mg tablet TAKE 1 TABLET BY MOUTH EVERY DAY AT BEDTIME FOR 90 DAYS 3 Active escitalopram (LEXAPRO) 10 mg tablet Take 1 Tablet by mouth daily. 3 Active medroxyPROGESTE Dontae 150 mg/mL injection Inject 1 mL into the muscle Every 3 Months. 4 Active metFORMIN (GLUCOPHAGE) 500 mg tablet TAKE 1 TABLET BY MOUTH 2 TIMES A DAY FOR 90 DAYS 3 Active naproxen (NAPROSYN) 500 mg tablet TAKE 1 TABLET BY MOUTH TWICE A DAY NEEDED FOR PAIN FOR UP TO 5 DAYS 4 Active SUMAtriptan (IMITREX) 50 mg tablet PLEASE SEE ATTACHED FOR DETAILED DIRECTIONS 3 Active azithromycin (ZITHROMAX) 250 mg tablet TAKE 2 TABLETS BY MOUTH TODAY, THEN TAKE 1 TABLET DAILY FOR 4 DAYS DIRECTED 4 Active azelastine-flut icasone 137-50 mcg/spray spray,non-aeros ol SPRAY 2 SPRAYS BY INTRANASAL ROUTE TWICE A DAY 4 Active amoxicillin-cla vulanate (AUGMENTIN) 875-125 mg per tablet Take 1 tablet by mouth 2 (two) times a day. for 10 days 4 Active benzonatate (TESSALON) 100 mg capsule TAKE 1 CAPSULE (100 MG) BY MOUTH 3 TIMES A DAY 4 Active budesonide (PULMICORT) 0.5 mg/2 mL nebulizer solution INHALE 2 ML EVERY DAY BY NEBULIZATION ROUTE 4 Active Vitamin D3 25 mcg (1,000 unit) capsule Take 1 capsule (1,000 Units total) by mouth 1 (one) time each day. 5 Active doxycycline hyclate (VIBRA-TABS) 100 mg tablet Take 1 tablet (100 mg total) by mouth 2 (two) times a day. for 10 days 4 Active EPINEPHrine (EPIPEN) 0.3 mg/0.3 mL injection INJECT 1 PEN INJECTOR SINGLE DOSE NEEDED 4 Active predniSONE (DELTASONE) 10 mg tablet Take 1 tablet (10 mg total) by mouth 1 (one) time each day. for 7 days 5 Active Active Problems Problem Noted Date Diagnosed Date Diabetes mellitus 10/05/2020 Abnormal mammogram 10/06/2019 Overview (06/01/2024): 09/2019 Mammogram IMPRESSION: Persistent asymmetry on diagnostic mammograms. ?? Subsequent ultrasound performed revealing no suspicious abnormality. Finding is likely benign. Recommend follow-up unilateral right breast mammography in 6 months to document stability. 12/2022 persistent left breast asymmetry- 2 6 mm inferiorly in the left breast , unchanged, cont q 6 mo follow up Encounters Date Type Department Care Team Description 08/30/2024 4:00 PM EST Clinical Support Obstetrics and Gynecology [address] [address] Depo-Provera contraceptive status (Primary Dx) from Last 3 Months Surgical History Surgery Date Site/Laterality Comments OVARIAN CYST REMOVAL 2015 PROCEDURE: IA OVARIAN CYSTECTOMY UNI/BI OTHER SURGICAL HISTORY 2019 PROCEDURE: HISTORY OTHER; COMMENT: drainage Bartholins cyst Medical History Medical History Date Comments Endometriosis 2015 DX:Endometriosis Ruptured ovarian cyst DX:Rupture d ovarian cyst Bartholin cyst DX:Bartholin cys t BRCA negative DX:BRCA negative ; COMMENT: per patient report Family History Medical History Relation Name Comments Breast cancer Aunt MOM SIDE Other: HIV Father Other: Heart attack Father Breast cancer Grandparent FATHERS SIDE Depression Mother Diabetes Mother Diabetes Sister Relation Name Status Comments Aunt MOM SIDE Alive Father Grandparent FATHERS SIDE Alive Mother Alive Sister Alive Social History Tobacco Use Types Packs/Day Years Used Date Smoking Tobacco: Never Smokeless Tobacco: Never Alcohol Use Standard Drinks/Week Comments No 0 (1 standard drink = 0.6 oz pur e alcohol) Comments Unknown Sex and Gender Information Value Date Recorded Sex Assigned at Not on file Legal Sex Female 10:48 PM EST Gender Identity Not on file Sexual Orientation Not on file Obstetrics History Last Filed Vital Signs Vital Sign Reading Time Taken Comments Blood Pressure 122/76 08/30/2024 4:03 PM EST Pulse 76 08/30/2024 4:03 PM EST Temperature 36.1 ??C (97 ??F) 08/30/2024 4:03 PM EST Respiratory Rate - - Oxygen Saturation - - Inhaled Oxygen Concentration - - Weight 64 kg (141 lb) 08/30/2024 4:03 PM EST Height 165.1 cm (5' 5 ) 05/31/2024 3:40 PM EDT Body Mass Index 23.46 05/31/2024 3:40 PM EDT Plan of Treatment Upcoming Encounters Date Type Department Care Team (Late st Contact Info) Description 11/23/2024 4:00 PM EDT Clinical Support Obstetrics and Gynecology [address] [address] Health Maintenance Due Date Last Done Comments Diabetes: Annual GFR (Glomerular Filtration Rate) 1981 Diabetes: Annual Foot Exam 1991 Diabetes: Annual Retina Eye Exam 1991 DTaP,Tdap,and Td Vaccines (1 - Tdap) 02/24/2000 Hepatitis B Vaccines (1 of 3 - 19+ 3-dose series) 02/24/2000 Pneumococcal Vaccine: Pediatrics (0 to 5 Years) and At-Risk Patients (6 to 64 Years) (1 of 2 - PCV) 02/24/2000 Cholesterol Screening (Lipid Panel) 07/20/2022 Depression Screening 07/20/2022 Social Influencers of Health Screening 07/20/2022 Diabetes: Annual Urine Albumin-Creatinine Ratio (uACR) 07/30/2022 Diabetes: Blood Sugar Contro l Test (HGBA1C) 07/30/2022 COVID-19 Vaccine (1 - 2023-2 5 season) 2024 Influenza Vaccine (#1) 2024 Breast Cancer Screening 12/17/2024 12/18/19, 12/03/2021, 10/03/2019 Cervical Cancer Screening: HPV 01/09/2028 01/08/2023 HIV Screening Completed 10/07/2021 Hepatitis C Screening Completed 10/07/2021 HIB Vaccines Aged Out No longer eligi ble based on patient's age to complete this topic HPV Vaccines Aged Out No longer eligi ble based on patient's age to complete this topic Hepatitis A Vaccines Aged Out No long er eligible based on patient's age to complete this topic IPV Vaccines Aged Out No longer eligi ble based on patient's age to complete this topic MMR Vaccines Aged Out No longer eligi ble based on patient's age to complete this topic Meningococcal ACWY Vaccine Aged Out N o longer eligible based on patient's age to complete this topic Meningococcal B Vacine Aged Out No lo nger eligible based on patient's age to complete this topic RSV Immunization Patients Under 20 months Aged Out No longer eligible b ased on patient's age to complete this topic Varicella Vaccines Aged Out No longer eligible based on patient's age to complete this topic Procedures Procedure Name Priority Date/Time Associated Diagnosis Comments POC PREGANCY, URINE SCREENING Routine 08/30/2024 4:09 PM EST Depo-Provera contraceptive status HPV Routine 01/08/2023 ERASTO SCREENING DIGITAL Routine 12/17/2022 9:40 AM EDT Encounter for screening mammogram for malignant neoplasm of breast HEPATITIS C SCREENING Routine 10/07/2021 HIV SCREENING Routine 10/07/2021 from Last 3 Months or Most Recently Relevant to Health Maintenance Results * POC , urine NO CHARGE screening manually resulted (08/30/2024 4:09 PM EST) HCG, Ur POC Negative Negative POC hCG Int QC Pass? Yes Yes Urine Urine specimen obtained by clean catch procedure / Unknown 08/30/2024 4:09 PM EST James Pate CNM POINT OF CARE TEST ENTER/EDIT ORDERABLES Final Result * Cervical Cancer Screening: HPV (01/08/2023) Cervical Cancer Screening: HPV Negative, Abstracted Historical Provider HEALTH MAINTENANCE Final Result * ERASTO SCREENING DIGITAL (12/17/2022 9:40 AM EDT) Anatomical Region Laterality Modality Mammography 12/17/2022 8:00 AM EDT Narrative 12/17/2022 9:40 AM EDT [facility] Diagnostic Imaging Department [address] [place], [place] [id number] Patient: ??FOZIA PEDROZA ?/Age/Sex: 1980 - 42 - F Unit#: ??[id number] ? Location/Status: ??SPDIMAM/REG CLI ? Mnemonic/Ordering Site: ??DIGSC/SPMAM Ordering Physician: ??ADAM JAY MD Erasto Screening Digital - 12/17/22823 EXAM: Erasto Screening Digital EXAM DATE AND TIME: 12/17/2022 8:24 AM HISTORY: ??Screening. Family history of breast carcinoma including maternal aunt and paternal grandmother. COMPARISON: ??12/03/21, 10/05/20, 04/04/20, 10/04/19, 10/03/19 TECHNIQUE: CC and MLO views of both breasts were obtained using full field digital mammography. Bilateral digital breast tomosynthesis was performed in the MLO projection. Computer aided detection with Mobly 7.2-H and Cartavi 3D 3.1 was employed. TISSUE DENSITY: c. The breasts are heterogeneously dense, which may obscure small masses. FINDINGS: A small focal asymmetry is seen in the posterior upper outer left breast with possible architectural distortion. MLO and CC spot compression tomosynthesis views are recommended for further assessment. There are two 6 mm round asymmetries in the inferior left breast, seen only in the MLO projections. CC and lateral tomosynthesis views are recommended for further assessment. No grouped microcalcifications are seen. The skin and vascularity are unremarkable. IMPRESSION: 1. Focal asymmetry with possible distortion in the upper outer left breast, for which additional views are recommended. 2. Subcentimeter round asymmetries in the inferior left breast, for which additional views are recommended. 3. Stable mammographic appearance of the right breast. No evidence of malignancy is seen. The patient will be called back. BI-RADS: ??Category 0: Incomplete - Need Additional Imaging Evaluation RECOMMENDATION(S): 1: Special mammographic view(s) needed LEFT [id number], [id number] 3340F, [id number] Dictating Physician: ??NORMA MEYER MD Electronically Signed by: ??NORMA MEYER MD Dic Date/Time: ??12/17/22936 Sign date/Time: ??12/17/22 09 Procedure Note Norma Meyer MD - 09/18/2023 [facility] Diagnostic Imaging Department [address] [place] [address] Patient: FOZIA PEDROZA /Age/Sex: 1980 - 42 - F Unit#: [id number] [facility]Ordering Site: [facility] Ordering Physician: ADAM JAY MD Erasto Screening Digital - 12/17/22823 EXAM: Erasto Screening Digital EXAM DATE AND TIME: 12/17/2022 8:24 AM HISTORY: Screening. Family history of breast carcinoma including maternalaunt and paternal grandmother. COMPARISON: 12/03/21, 10/05/20, 04/04/20, 10/04/19, 10/03/19 TECHNIQUE: CC and MLO views of both breasts were obtained using fullfield digital mammography. Bilateral digital breast tomosynthesis was performedin the MLO projection. Computer aided detection with Mobly 7.2-H andCartavi 3D 3.1 was employed. TISSUE DENSITY: c. The breasts are heterogeneously dense, which mayobscure small masses. FINDINGS: A small focal asymmetry is seen in the posterior upper outer left breastwith possible architectural distortion. MLO and CC spot compressiontomosynthesis views are recommended for further assessment. There are two 6 mm round asymmetries in the inferior left breast, seenonly in the MLO projections. CC and lateral tomosynthesis views are recommendedfor further assessment. No grouped microcalcifications are seen. The skin and vascularity are unremarkable. IMPRESSION: 1. Focal asymmetry with possible distortion in the upper outer leftbreast, for which additional views are recommended. 2. Subcentimeter round asymmetries in the inferior left breast, forwhich additional views are recommended. 3. Stable mammographic appearance of the right breast. No evidence of malignancy is seen. The patient will be called back. BI-RADS: Category 0: Incomplete - Need Additional Imaging Evaluation RECOMMENDATION(S): 1: Special mammographic view(s) needed LEFT [id number], [id number] 3340F, 7025F Dictating Physician: NORMA MEYER MD Electronically Signed by: NORMA MEYER MD Dic Date/Time: 12/17/22936 Sign date/Time: 12/17/22939 Adam Jay MD IMG BI PROCEDURES Final Result * HIV Screening (10/07/2021) HIV Screening Abstracted Historical Provider HEALTH MAINTENANCE Final Result * Hepatitis C Screening (10/07/2021) Hepatitis C Screening Abstracted Historical Provider HEALTH MAINTENANCE Final Result from Last 3 Months or Most Recently Relevant to Health Maintenance Insurance [facility] [employer] Care Teams Care Transitions Nurse Relationship Specialty Start Date End Date Kezia Jaime MD [address] [place] [address] , [address] [facility]A: [facility] MALDONADO Millan PCP - General Internal Medicine 02/13/20
--- NOTE | 2024-10-27 09:06 | A.OFFPC_ITS ---
Intake Visit Reasons: Diabetic management/meds f/u Allergies shellfish derived [SHELLFISH DERIVED] Allergy (Intermediate, Verified 10/27/24 09:06) HIVES Seasonal Allergies Allergy (Mild, Verified 10/27/24 09:06) Sneezing Shellfish Allergy (Unknown, Uncoded 03/11/24 13:30) HIVES Medication List - Last Reconciled 10/27/24 by Adam Hernandez MD azelastine-fluticasone 137-50 mcg/spray 2 sprays intranasal BID cholecalciferol (vitamin D3) 25 mcg PO DAILY 90 days cyanocobalamin (vitamin B-12) 1,000 mcg PO DAILY 90 days epinephrine IM glipizide 2.5 mg PO DAILY metformin 1,000 mg PO BID 90 days sumatriptan succinate 50 mg PO ONCE PRN 30 days Tobacco use date assessed: 10/27/24 Dental Screening Dental Screen Date: 10/27/24 Did you have a dental visit in the last 12 months?: Yes Did you have a dental problem in the last 6 months where you did not have access to dental care?: No Was dental information given to patient?: Patient has dentist HPI Diabetic management/meds f/u HPI Details History - The patient is a 44-year-old female pr esenting with hyperglycemia management. - Initial self-reported glucose levels w ere 268 mg/dL fasting, 241 mg/dL at noon, and 157 mg/dL at 8:00 PM, which were noted before starting glipizide. An improvement was observed after medication initiation. - Subsequent readings showed fasting glu cose levels of 224 mg/dL, 147 mg/dL at noon, and 120 mg/dL at 6:00 PM after starting glipizide. - Patient has been taking metformin regu larly and had added glipizide, noting improved glycemic control. Problem List - Type 2 Diabetes Mellitus Patient Instructions - Continue taking metformin 1000 mg twic e daily. - Take glipizide 2.5 mg twice daily, onc e in the morning and once at night. - Monitor signs and symptoms of hypoglyc emia; reduce dose if symptoms of low blood sugar occur, reverting to once daily glipizide dosing if necessary. - Bring all blood sugar records to the [facility] appointment in November. Review of Systems. - General: No fever no chills - Neurological: No headaches no dizziness - Ear nose throat: No sore throat no hearing difficulty no ear pain - Cardiovascular: No syncope, no chest pain, no palpitations - Gastrointestinal: No nausea vomiting or diarrhea - Endocrine: No polyuria polydipsia no heat intolerance - Genitourinary: No dysuria , no blood in urine [facility] Medical History Sore throat Upper respiratory tract infection Diabetes mellitus, type 2 Constipation by delayed colonic transit Headache syndrome Encounter to establish care Surgical History History of ovarian cyst Family History Father HTN (hypertension) CVD (cardiovascular disease) Diabetes mellitus HIV (human immunodeficiency virus infection) Hx of CABG Substance use disorder Mother Mental health disorder Brother Substance use disorder Sister No problems noted. Son Neuroblastoma Mental health disorder Paternal Aunt Substance use disorder Paternal Uncle Substance use disorder Social History Housing: House Alcohol intake: never Patient Tobacco Use Status: Never used Tobacco e-Cigarette/Vaping Use: Never Used service: No Current occupational status: employed Cognitive needs: No Hearing needs: No Vision needs: Yes Questionnaire Thrive Questionnaire Date Thrive assessed: 08/26/24 AUDIT C Alcohol Use Questionnaire (AUDIT-C) 1. How often do you have a drink containing alcohol?: Never 3. How often do you have six or more drinks on one occasion?: Never Total Score: 0 Score Reviewed/Action Taken: Yes EDITA-7 AMB Questionnaire EDITA-7 Date EDITA - 7 assessed: 08/26/24 Source: Developed by Drs. Clifford Parish, Mary Jo Adorno, Martin Santizo and colleagues, with an educational néstor from [employer]. Physical exam (Primary Care) Tobacco/Smoking Status: Tobacco use Status Tobacco use date assessed 10/27/24 10/27/24 09:09 Patient Tobacco Use Status Never used Tobacco 10/27/24 09:09 e-Cigarette/Vaping Use Never Used 10/27/24 09:09 Thrive Assessment: Date of Thrive Assessment Date Thrive assessed 08/26/24 10/27/24 09:09 Telehealth Telehealth Telehealth Platform: theeventwall Location of provider rendering services: practice address Location of patient: address on file Patient Identification confirmed using: Name, : Yes Telehealth method: voice only Patient verbally consented to treatment: Yes Patient verbally consented to billing insurance company: Yes Patient informed of any privacy concerns related to visit: Yes Minutes spent on Phone/Video with Pt.: 13 Coding Level of Care Code Tele Est Pt Level 3 (22825) Diagnoses Type 2 diabetes mellitus with other specified complication, without long-term current use of insulin E11.69 Diabetes mellitus intermediate card tender insulin use: without intermediate use Diabetes mellitus complication status: with other specified complication Assessment & Plan Assessment & Plan (1) Type 2 diabetes mellitus: Code(s): E11.9 - Type 2 diabetes mellitus without complications Category: Medical Qualifiers: Diabetes mellitus intermediate card tender insulin use: without intermediate card tender use Diabetes mellitus complication status: with other specified complication Qualified Code(s): E11.69 - Type 2 diabetes mellitus with other specified complication Plan History - The patient is a 44-year-old female presenting with hyperglycemia management. - Initial self-reported glucose levels were 268 mg/dL fasting, 241 mg/dL at noon, and 157 mg/dL at 8:00 PM, which were noted before starting glipizide. An improvement was observed after medication initiation. - Subsequent readings showed fasting glucose levels of 224 mg/dL, 147 mg/dL at noon, and 120 mg/dL at 6:00 PM after starting glipizide. - Patient has been taking metformin regularly and had added glipizide, noting improved glycemic control. Problem List - Type 2 Diabetes Mellitus Patient Instructions - Continue taking metformin 1000 mg twice daily. - Take glipizide 2.5 mg twice daily, once in the morning and once at night. - Monitor signs and symptoms of hypoglycemia; reduce dose if symptoms of low blood sugar occur, reverting to once daily glipizide dosing if necessary. - Bring all blood sugar records to the upcoming appointment in November. Medications: Changed From glipizide 2.5 mg PO DAILY 30 tabs 0RF To glipizide 2.5 mg PO BID 90 days 180 tabs 0RF
== END 2024-10-27 09:49 | disposition home or self-care (01) ==
LOC: HO.HMCC 08:14
PROVIDERS: PCP Internal Medicine; Visit Provider Internal Medicine
DX: E11.69 Type 2 diabetes mellitus with other specified complication (principal)

== ENCOUNTER 2024-11-04 07:42 | Outpatient (REF) | payer OTHER, SELFPAY ==
[2024-11-04 10:47] LABS: HBS Num1 12.21 mIU/mL (0-7.99); ~Hepatitis B Surface Antibody REACTIVE (Nonreactive)
[2024-11-07 14:37] LABS: TS Negative Control Passed; TS Panel A 1; TS Panel B 0; TS Positive Control Passed; TSpotTB Negative (Negative)
[2024-11-08 02:34] LABS: Rubella IgG Antibody 2.13 Index
[2024-11-11 11:31] LABS: Varicella IgG Antibody 6.91
== END 2024-11-04 07:43 | disposition home or self-care (01) ==
LOC: HO.HMGCLDS 07:42
PROVIDERS: PCP Internal Medicine; Visit Provider Internal Medicine
DX: Z78.9 Other specified health status (principal); Z11.1 Encounter for screening for respiratory tuberculosis; R76.0 Raised antibody titer
CPT/HCPCS: 36415; 86481; 86706; 86735; 86762; 86765; 86787

== ENCOUNTER 2024-12-06 09:25 | Outpatient (AMB) | payer OTHER, SELFPAY ==
[2024-12-06 09:28] VITALS: BP 100/70; PULSE 92; RESP 16; TEMP 36.8; O2SAT 99; BMI 25.1
--- NOTE | 2024-12-06 09:28 | A.OFFPC_ITS ---
Vital Signs 12/06/24 09:28 Height 5 ft 2 in Weight 137 lb BMI 25.1 BP 100/70 Blood Pressure Location Rt brachial Position Sitting Respiration 16 Pulse 92 Pulse Source Pulse Oximeter Temp 98.3 F Temp Source Oral Pulse Oximetry (%) 99 Oxygen Delivery Method Room Air Intake Visit Reasons: 3 month follow up Allergies shellfish derived [SHELLFISH DERIVED] Allergy (Intermediate, Verified 12/06/24 09:29) HIVES Seasonal Allergies Allergy (Mild, Verified 12/06/24 09:29) Sneezing Shellfish Allergy (Unknown, Uncoded 12/06/24 09:29) HIVES Medication List - Last Reconciled 12/06/24 by Adam Hernandez MD azelastine-fluticasone 137-50 mcg/spray 2 sprays intranasal BID cholecalciferol (vitamin D3) 25 mcg PO DAILY 90 days cyanocobalamin (vitamin B-12) 1,000 mcg PO DAILY 90 days epinephrine IM glipizide 2.5 mg PO BID 90 days metformin 1,000 mg PO BID 90 days sumatriptan succinate 50 mg PO ONCE PRN 30 days Tobacco use date assessed: 12/06/24 Dental Screening Dental Screen Date: 12/06/24 Did you have a dental visit in the last 12 months?: Yes Did you have a dental problem in the last 6 months where you did not have access to dental care?: No Was dental information given to patient?: Patient has dentist HPI 3 month follow up HPI Details - The patient is a 44-year-old female pr esenting with management of Type 2 Diabetes Mellitus and follow-up on Psoriasis. - Type 2 Diabetes Mellitus: Initially di agnosed a couple of years ago. The patient was started on Metformin. Eventually her hemoglobin A1c went up to 7.0 and be added glipizide 2.5 mg b.i.d. beer increasing the dose to 2 tablets at night and 1 in the morning and continue metformin Blood sugar readings have varied, with recorded low readings such as 71 and 63 mg/dL after meals, at night and fasting levels have continued to be elevated, in 200s. The patient reports slight improvements in fasting levels but notes they still remain higher than desired. The treatment regimen was initiated on October 28, with an increased dosage required as per recent fluctuations. - Psoriasis: Previously extensive, manag ed through systemic corticosteroids (Prednisone) as a pill. The condition has shown recurrence post-treatment, on the finger of hand not that severe, I have sent triamcinolone cream to be used locally as needed Headaches are stable Problem List - Type 2 Diabetes Mellitus - Psoriasis - Headaches - Vitamin B12 Deficiency - Vitamin D Deficiency Patient Instructions - increase glipizide to 2 at night and 1 in the morning and continue metformin b.i.d. 1 g - Monitor blood sugar levels regularly a nd record any episodes of feeling funny to check for hypoglycemia. - Adhere to dietary recommendations to a id in stabilizing blood sugar levels. - Psoriasis treatment with a topical cr eam as per new prescription. - Follow up with the neurologist for estefani dee - Return for lab work in three months to reassess and calibrate medication dosages as needed. - Continue taking metformin 1000 mg twic e daily. Review system - General: No fever no chills - Neurological: No headaches no dizziness - Ear nose throat: No sore throat no hearing difficulty no ear pain - Cardiovascular: No syncope, no chest pain, no palpitations - Gastrointestinal: No nausea vomiting or diarrhea - Endocrine: No polyuria polydipsia no heat intolerance - Genitourinary: No dysuria , no blood in urine Physical Exam - General: No acute distress - HEENT: No acute findings - Neck: Supple - Respiratory system: Able to talk in f ull sentences, no audible wheeze - cardiovascular: S1-S2 regular in rat e and rhythm - Gastrointestinal: No pain - Extremities: No new findings - 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 Son Neuroblastoma Mental health disorder Paternal Aunt Substance use disorder Paternal Uncle Substance use disorder Social History Housing: House Alcohol intake: never Patient Tobacco Use Status: Never used Tobacco e-Cigarette/Vaping Use: Never Used service: No Current occupational status: employed Cognitive needs: No Hearing needs: No Vision needs: Yes Questionnaire Thrive Questionnaire Date Thrive assessed: 08/26/24 I am a: Patient What is your living situation today?: I have a steady place to live Within the past 12 months, did the food you bought not last and you didn't have the money to get more?: Never true Within the past 12 months, did you worry whether your food would run out before you got money to buy more?: Never true Do you have trouble paying for medicines?: No Do you have trouble getting transportation to medical appointments?: No Do you have trouble paying your heating and electricity bill?: No Do you have trouble taking care of your child, family member or friend?: No Do you have trouble with day-to-day activities such as bathing, preparing meals, shopping, managing finances, etc.?: No Are you currently unemployed and looking for a job?: No Are you interested in more education?: No Please select the resources that you would like help with: None Currently or been in a relationship where the following occur: No concerns reported THRIVE Score: 0 EDITA-7 AMB Questionnaire EDITA-7 Date EDITA - 7 assessed: 08/26/24 Source: Developed by Drs. Clifford Parish, Mary Jo Adorno, Martin Santizo and colleagues, with an educational néstor from [employer]. Physical exam (Primary Care) Vital Signs: Last Vital Signs Temp 98.3 F 12/06/24 09:28 Pulse 92 12/06/24 09:28 Resp 16 12/06/24 09:28 BP 100/70 12/06/24 09:28 Pulse Ox 99 12/06/24 09:28 Oxygen Delivery Method Room Air 12/06/24 09:28 BMI result Body Mass Index 25.1 Tobacco/Smoking Status: Tobacco use Status Tobacco use date assessed 12/06/24 12/06/24 09:29 Patient Tobacco Use Status Never used Tobacco 12/06/24 09:29 e-Cigarette/Vaping Use Never Used 12/06/24 09:29 Thrive Assessment: Date of Thrive Assessment Date Thrive assessed 08/26/24 12/06/24 09:29 Currently or been in a relationship where the following occur: No concerns reported Results AMB Hemoglobin A1c AMB Hemoglobin A1c 7.1 % Last Edit by Serene Smith CMA on 12/06/24 10:41 Immunizations Boostrix Tdap 2.5 Lf unit-8 mcg-5 Lf/0.5 mL intramuscular syringe Performing Provider: Adam Hernandez MD Performing Location: [facility] Administered by: Serene Smith CMA on 12/06/24 09:37 Dose Route Admin Location Dispensed Lot Number Expiration Date NDC Exterminator 0.5 mL IM Right Deltoid 0.5 mL [id number] 02/24/27 [id number] [employer] VIS Given Date VIS Provided VIS Publication Date 12/06/24 Single Vaccine 21 Eligibility Eligibility Date Funding Source Not [facility] Eligible 12/06/24 Private Results Reviewed Results Reviewed: Laboratory Last Values Hgb A1c (Clinic) 7.1 % (4.0-6.0) H 12/06/24 10:39 Coding Level of Care Code Est Pt Level 4 (64798) Complex EM visit Add On G2211 Diagnoses Type 2 diabetes mellitus with other specified complication, without long-term current use of insulin E11.69 Diabetes mellitus alf insulin use: without alf use Diabetes mellitus complication status: with other specified complication Headache syndrome G44.89 Major depressive disorder, severe F32.2 Psoriasis L40.9 Assessment & Plan Assessment & Plan (1) Type 2 diabetes mellitus: Code(s): E11.9 - Type 2 diabetes mellitus without complications Category: Medical Qualifiers: 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: without 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 - Type 2 Diabetes Mellitus: Initially diagnosed a couple of years ago. The patient was started on Metformin. Eventually her hemoglobin A1c went up to 7.0 and be added glipizide 2.5 mg b.i.d. beer increasing the dose to 2 tablets at night and 1 in the morning and continue metformin Blood sugar readings have varied, with recorded low readings such as 71 and 63 mg/dL after meals, at night and fasting levels have continued to be elevated, in 200s. The patient reports slight improvements in fasting levels but notes they still remain higher than desired. The treatment regimen was initiated on October 28, with an increased dosage required as per recent fluctuations. - Psoriasis: Previously extensive, managed through systemic corticosteroids (Prednisone) as a pill. The condition has shown recurrence post-treatment, on the finger of hand not that severe, I have sent triamcinolone cream to be used locally as needed Headaches are stable Problem List - Type 2 Diabetes Mellitus - Psoriasis - Headaches - Vitamin B12 Deficiency - Vitamin D Deficiency Patient Instructions - increase glipizide to 2 at night and 1 in the morning and continue metformin b.i.d. 1 g - Monitor blood sugar levels regularly and record any episodes of feeling funny to check for hypoglycemia. - Adhere to dietary recommendations to aid in stabilizing blood sugar levels. - Psoriasis treatment with a topical cream as per new prescription. - Follow up with the neurologist for headaches - Return for lab work in three months to reassess and calibrate medication dosages as needed. - Continue taking metformin 1000 mg twice daily. Orders: Orders Hemoglobin A1c Today E11.69 - Type 2 diabetes mellitus with other specified complication, F32.2 - Major depressive disorder, single episode, severe without psychotic features, G44.89 - Other headache syndrome, L40.9 - Psoriasis, unspecified Lipid Panel Today E11.69 - Type 2 diabetes mellitus with other specified complication, F32.2 - Major depressive disorder, single episode, severe without psychotic features, G44.89 - Other headache syndrome, L40.9 - Psoriasis, unspecified TDaP Immunization Today Z23 - Encounter for immunization AMB Hemoglobin A1c Today E11.69 - Type 2 diabetes mellitus with other specified complication Complete Blood Count Auto Diff Today E11.69 - Type 2 diabetes mellitus with other specified complication, F32.2 - Major depressive disorder, single episode, severe without psychotic features, G44.89 - Other headache syndrome, L40.9 - Psoriasis, unspecified Comprehensive [place]. Panel Fast Today E11.69 - Type 2 diabetes mellitus with other specified complication, F32.2 - Major depressive disorder, single episode, severe without psychotic features, G44.89 - Other headache syndrome, L40.9 - Psoriasis, unspecified Medications: New triamcinolone acetonide 0.1% 1 appl topical DAILY 30 days 80 grams 0RF Changed From glipizide 2.5 mg PO BID 90 days 180 tabs 0RF To glipizide orally 2 times a day; 2 tabs at night and one in am 90 days 270 tabs 1RF Refilled metformin 1,000 mg PO BID 90 days 180 tabs 1RF E11.9 - Type 2 diabetes mellitus without complications
--- OUTSIDE RECORDS SUMMARY | 2024-12-06 10:17 | XMS_ITS | Clinical Summary ---
Author Organization [facility] [address] [facility] l[address] Address [address] [place] [address] Phone Care Team Providers Care Diamond Die Driller Name Role Phone Kezia Jaime MD Primary Care Provider [phone] Allergies Active Allergy Reactions Criticality Noted Date Comments Shellfish Containing Products 2019 Shellfish Derived Hives Medium 02/13/2020 Medications amitriptyline (ELAVIL) 10 mg tablet TAKE 1 TABLET BY MOUTH EVERY DAY AT BEDTIME FOR 90 DAYS 3 Active escitalopram (LEXAPRO) 10 mg tablet Take 1 Tablet by mouth daily. 3 Active metFORMIN (GLUCOPHAGE) 500 mg tablet TAKE [...] DAILY FOR 4 DAYS DIRECTED 4 Active azelastine-flu ticasone 137-50 mcg/spray spray,non-aero robbi SPRAY 2 SPRAYS BY INTRANASAL ROUTE TWICE A DAY 4 Active amoxicillin-cl avulanate (AUGMENTIN) 875-125 mg per tablet Take 1 [...] each day. for 7 days 5 Active medroxyPROGEST ERone 150 mg/mL injection Inject 1 mL (150 mg total) into the shoulder, thigh, or buttocks every 3 (three) months. 1 mL 2 5 Active medroxyPROGEST ERone 150 mg/mL injection Inject 1 mL into the muscle Every 3 Months. 4 025 Discontin [facility]) Hospital, Clinic, or Other Facility Administered Medication Ordered Dose Route Frequency Start Date End Date Status medroxyPROGESTERone (DEPO-PROVERA) injection 150 mgIndications:Encounter for management and injection of depo-Provera 150 mg IM Once 11/23/2024 11/23/2024 Ended Active Problems Problem Noted Date Diagnosed Date Diabetes mellitus ([facility] V24, [facility] V28) Abnormal mammogram 10/06/2019 Overview (06/01/2024): 09/2019 Mammogram [...] Encounters Date Type Department Care Team Description 11/23/2024 4:00 PM EDT Clinical Support Obstetrics and Gynecology - [facility] [address] [place] [address] Encounter for management and injection of depo-Provera (Primary Dx) from Last 3 Months Surgical History Surgery Date Site/Laterality Comments OVARIAN CYST REMOVAL 2015 PROCEDURE: [place] OVARIAN CYSTECTOMY UNI/BI OTHER SURGICAL HISTORY 2019 [...] Sign Reading Time Taken Comments Blood Pressure 112/78 11/23/2024 4:19 PM EDT Pulse 88 11/23/2024 4:19 PM EDT Temperature 36.1 ??C (97 ??F) 08/30/2024 4:03 PM EST Respiratory Rate 14 11/23/2024 4:19 PM EDT Oxygen Saturation - - Inhaled Oxygen Concentration - - Weight 64 kg (141 lb) 11/23/2024 4:19 PM EDT Height 155 cm (5' 1.02 ) 11/23/2024 4:19 PM EDT Body Mass Index 26.62 11/23/2024 4:19 PM EDT Plan of Treatment Upcoming Encounters Date Type Department Care Team (Late st Contact Info) Description 02/15/2025 1:00 PM EDT Clinical Support Obstetrics and Gynecology - [address] [place] [id number] Health Maintenance Due Date Last Done Comments [...] Contro l Test (HGBA1C) 07/30/2022 COVID-19 Vaccine (2023-2 5 season) 2024 Breast Cancer Screening 12/17/2024 12/18/19 23, 12/03/2021, 10/03/2019 Influenza Vaccine (Season Ended) 2025 Cervical Cancer Screening: HPV 01/09/2028 01/08/2023 HIV [...] age to complete this topic Meningococcal B Vaccine Aged Out No l onger eligible based on patient's age to complete this topic RSV Immunization Patients Under 20 months Aged Out No longer eligible b ased on patient's age to complete this topic Varicella Vaccines Aged Out No longer eligible based on patient's age to complete this topic Procedures Procedure Name Priority Date/Time Associated Diagnosis Comments HM HPV Routine 01/08/2023 ERASTO SCREENING DIGITAL Routine 12/17/2022 9:40 AM EDT Encounter for screening mammogram for malignant neoplasm of breast HEPATITIS C SCREENING Routine 10/07/2021 HIV SCREENING Routine 10/07/2021 from Last 3 Months or Most Recently Relevant to Health Maintenance Results * Cervical Cancer Screening: HPV (01/08/2023) Cervical Cancer Screening: HPV Negative, Abstracted us Historical Provider HEALTH MAINTENANCE Final Result * ERASTO SCREENING DIGITAL (12/17/2022 9:40 AM EDT) Anatomical Region Laterality Modality Mammography 12/17/2022 8:00 AM EDT Narrative 12/17/2022 9:40 AM EDT [facility] Diagnostic Imaging Department [address] [place] [id number] Patient: ??FOZIA PEDROZA ?/Age/Sex: 1980 - 42 - F Unit#: ??[id number] ? Location/Status: ??SPDIMAM/REG CLI ? Mnemonic/Ordering Site: [...] the MLO projection. 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 TISSUE DENSITY: c. [...] RECOMMENDATION(S): 1: Special mammographic view(s) needed LEFT [id number], [id number] 3340F, 7025F Dictating Physician: ??NORMA MEYER MD Electronically Signed by: ??NORMA MEYER MD Dic Date/Time: ??12/17/22936 Sign date/Time: ??12/17/22 09 Procedure Note Norma Meyer MD - 09/18/2023 [facility] Diagnostic Imaging Department [address] [place] [address] Patient: FOZIA PEDROZA /Age/Sex: 1980 - 42 - F Unit#: [id number] Location/Status: SPDIMAM/REG CLI Mnemonic/Ordering Site: [facility] Ordering Physician: ADAM JAY MD Erasto Screening Digital - 12/17/22823 EXAM: [facility] Screening Digital EXAM DATE AND TIME: 12/17/2022 8:24 AM HISTORY: Screening. Family history of breast carcinoma including maternalaunt and paternal grandmother. COMPARISON: 12/03/21, 10/05/20, 04/04/20, 10/04/19, 10/03/19 TECHNIQUE: CC and MLO views of both breasts were obtained using fullfield digital mammography. Bilateral digital breast tomosynthesis was performedin the MLO projection. Computer aided detection with [employer] 7[employer]2-H and[employer] 3D 3.1 was employed. TISSUE DENSITY: c. [...] RECOMMENDATION(S): 1: Special mammographic view(s) needed LEFT [id number], [id number] 3340F, 7076F Dictating Physician: NORMA MEYER MD Electronically Signed [...] Most Recently Relevant to Health Maintenance Insurance [facility] [place] [address] Care Teams Diamond Die Driller Relationship Specialty Start Date End Date Kezia Jaime MD [address] [place] [address] , [address] [facility] D/B/A: [facility] MALDONADO Millan PCP - General Internal Medicine 02/13/20
--- OUTSIDE RECORDS SUMMARY | 2024-12-06 10:18 | XMS_ITS | Data Portability ---
Author Organization [place] - [facility], Allergy Address [address] [address] Care Team Providers Care Medical Appointment Clerk Name Role Phone HELEN JAY Primary Care [...] available 10/07/2024 11:24:26 10/12/2024 10/12/2024 Visit With: Elias Lal RN [...] ? ? [email or web address] Not available 10/12/2024 17:38:01 11/01/2024 11/01/2024 Visit With: KATHERINE Cheng Use of Antihistamine s: No If yes: Vial Test Change in medications: No If yes ? ? ? Increase in asthma symptoms If yes, inhaler use: Reaction to last injections: No If yes: ? ? ? Allergy Symptoms: Other: ? ? ? Missed: Dose Aware of Vial Test Notes:? ? ? gary Not available 11/01/2024 11:59:25 11/16/2024 11/16/2024 Visit With: Thuy Pedroza Use of Antihistamine s: No If yes: Vial Test Change in medications: No If yes ? ? ? Increase in asthma symptoms If yes, inhaler use: Reaction to last injections: No If yes: ? ? ? Allergy Symptoms: Other: ? ? ? Missed: 1 week Dose Repeated Aware of Vial Test Notes:? ? ? [email or web address] Not available 11/16/2024 17:21:56 11/23/2024 11/23/2024 Visit With: KATHERINE Cheng Use of Antihistamine s: No If yes: Vial Test Change in medications: No If yes ? ? ? Increase in asthma symptoms If yes, inhaler use: Reaction to last injections: No If yes: ? ? ? Allergy Symptoms: Other: ? ? ? Missed: Dose Aware of Vial Test Notes:? ? ?depo shot Dr[facility] Not available 11/23/2024 16:52:04 Plan of Treatment Reminders Order Date Submit Date Provider Last Modified By Organization Details Last Modified Time Details Appointments [facility]- Allergy f-up 6mon 2024 02:30P M GEO [...] Address Organization Details Recorded Time Acute sinusitis 66511465 Active 2021 Other acute sinusitis ; Note: Date Diagnosed : 04/11/2022 4:55 PM (J01.80) Not Available [facility] 03:18:19 Allergic rhinitis 78236732 Active 2023 Allergic rhinitis: Due to other [...] 4:22 PM (477.8) Note: Date Diagnosed : 3 4:22 PM (477.8) ; Start Date : 3 Allergi c rhinitis: Due to other allergen; Note: Date Diagnosed : 06/23/2023 12:16 PM (477.8) Note: Date Diagnosed : 06/23/2023 12:16 PM (477.8) ; Start Date : Allergi c rhinitis: Due to other allergen; Note: Date Diagnosed : 11:55 AM (477.8) Note: Date Diagnosed : 11:55 AM (477.8) ; Start Date : 3 Allergi c rhinitis: Due to other allergen; Note: Date Diagnosed : 11:51 AM (477.8) Note: Date Diagnosed : 11:51 AM (477.8) ; Start Date : 3 Allergi c rhinitis: Due to other allergen; Note: Date Diagnosed : 05/19/2023 10:24 AM (477.8) Note: Date Diagnosed : 05/19/2023 10:24 AM (477.8) ; Start Date : 3 Allergi c rhinitis: Due to other allergen; Note: Date Diagnosed : 05/07/2023 12:05 PM (477.8) Note: Date Diagnosed : 05/07/2023 12:05 PM (477.8) ; Start Date : 3 [...] ; Start Date : 3 Not Available [facility] 4 01:25:08 Bilateral disorder of Eustachia n tubes [id number] 80098 Active 2020 Other specified disorders of Eustachia n tube, bilateral ; Note: Date Diagnosed : 1 11:11 AM (H69.83) Not Available [facility] 4 03:18:18 Recurrent acute sinusitis 604296084 Active 2021 Other acute recurrent sinusitis ; Note: Date Diagnosed : 2 5:29 PM (J01.81) Not Available [facility] 4 03:18:19 Pain of right temporoma ndibular joint [id number] 943312 Active 2020 Arthralgi a of right temporoma ndibular joint; Note: Date Diagnosed : 11:48 AM (M26.621) Not Available [facility] 4 03:18:19 Allergic rhinitis caused by pollen 78342604 Active 2022 Allergic rhinitis due to pollen; Note: Date Diagnosed : 09/26/2022 4:51 PM (J30.1) Not Available [facility] 4 03:18:19 Perennial allergic rhinitis 821183189 Active 2023 [facility] [address], [place], [address] , [place] [facility] 4 17:05:30 Acute maxillary sinusitis 13227304 Active 2023 GEO CASTILLO MD [address], [place], [address] , [place] [facility] 4 16:53:35 Chronic sinusitis 79564754 Active 2023 GEO CASTILLO MD [address], [place], [place], [address] , [place] [facility] 4 15:10:31 Nasal congestio n 47332906 Active 2023 GERALDINE FARRAR MD [address], [place], [address] , [place] [facility] 4 10:22:29 Atypical facial pain 47785037 Active 2023 GERALDINE FARRAR MD [address], [place], [place], [address] , [place] [facility] 4 21:56:24 Seasonal allergic rhinitis 839345611 Active 2023 GEO CASTILLO MD [address], [place], [address] , [place] [facility] 4 07:59:00 Anterior epistaxis 656733443 Active 2024 GERALDINE FARRAR MD [address], [place], [address] , [place] [facility] 09:42:15 Problem Notes None recorded. Procedures Surgical History Date Name Laterality Status Provider Name and Address Organization Details Recorded Time 11/24/19 25 Allergy Immunotherapy Injections completed ABHIJEET DANIELS, RMA [address], [place], [address], [place] [facility] 11/23/2024 16:51:46 11/17/19 25 Allergy Immunotherapy Injections completed KATHERINE CRAVEN [facility],[address], [address], [place] [facility] 11/16/2024 17:21:42 11/02/19 25 Allergy Immunotherapy Injections completed [facility] [address] [facility], [address], [place] [facility] 11/01/2024 11:59:08 10/12/19 25 Allergy Immunotherapy Injections completed ELIAS LAL RN 100 [facility],[address], [address], [place] [facility] [place] 10/12/2024 17:39:46 10/07/19 25 Allergy Immunotherapy Injections completed ELIAS LAL RN 100 [facility],[address], [address], [place] [facility] 10/07/2024 11:24:17 09/28/19 25 Allergy Immunotherapy Injections completed ELIAS LAL RN 100 [facility],[address], [address], [place] [facility] 09/28/2024 17:15:28 09/21/19 25 Allergy Immunotherapy Injections completed KATHERINE CRAVEN 100 [facility],[address] [place] [address], [address], [place] [facility] 09/21/2024 17:29:47 06/23/20 24 Allergy Immunotherapy Injections completed KATHERINE CRAVEN 100 [facility],[address], [address], [place] [facility] 06/23/2024 16:33:26 06/01/20 24 Allergy Immunotherapy Injections completed ABHIJEET DANIELS, RMA [address], [place], [address], [place] [facility] 06/01/2024 11:14:57 05/11/20 24 Allergy Immunotherapy Injections completed ABHIJEET DIMASC, RMA [address], [place], [address], [place] [facility] 05/11/2024 17:20:23 04/21/20 24 Allergy Immunotherapy Injections completed THUY PEDROZA RMA [address], [place], [address], [place] [facility] 04/21/2024 16:20:17 04/13/20 24 Allergy Immunotherapy Injections completed ABHIJEET DANIELS, RMA [address], [place], [address], [place] [facility] 04/13/2024 16:57:24 04/07/20 24 Allergy Immunotherapy Injections completed THUY PEDROZA RMA [address], [place], [address], [place] [facility] 04/07/2024 16:25:04 03/02/20 24 Allergy Immunotherapy Injections completed ABHIJEET DANIELS RMA [address], [place], [address], [place] [facility] 03/02/2024 14:30:05 02/25/20 24 Allergy Immunotherapy Injections completed ELIAS LAL RN [address], [place], [address], [place] [facility] 02/25/2024 15:26:18 01/19/20 24 Allergy Immunotherapy Injections completed THUY PEDROZA RMA [address], [address], [place] [facility] 01/19/2024 15:42:11 12/30/19 24 Allergy Immunotherapy Injections completed ABHIJEET DANIELS, RMA [address], [place], [address], [place] [facility] 12/30/2023 17:05:54 Imaging Results None recorded. Procedure [...] mg capsule 05/30 completed Medicati on ID: [id number] D uration Value: 14 Brand Name: doxycycl [...] metformin 1,000 mg tablet TAKE 1 TABLET BY MOUTH TWICE A DAY FOR 90 DAYS active Not [...] mg tablet 04/25 completed Medicati on ID: [id number] B rand Name: escitalo pram oxalate Send Method: E-Prescr ibed Sub s Allowed: subs OK Medic ationGen ericName : escitalo pram oxalate Not Available Not Available Not Available azelastin e 137 mcg-fluti casone 50 mcg/spray nasal spray [place] 2 sprays twice a day by intranas al route. 2023 active Not Available Not Available Not Avai lable Kyleena 17.5 mcg/24 hr (up to 5 years) 19.5 mg intrauter ine device 04/25 completed Medicati on ID: [id number] B rand Name: Kyleena Send Method: E-Prescr ibed Sub s Allowed: subs OK Medic ationGen ericName : Kyleena Not Available Not Available Not Available glipizide 2.5 mg tablet TAKE 1 TABLET BY MOUTH EVERY DAY active Not Available Not Available No t Available Vitals None Recorded Social History None [...] Diagnosis Note 434 GEO CASTILLO MD Allergy 100 [facility],[place] [address] [place] [address] 12/30/2023 17:04:11 01/01/2024 15:55:03 Perennial allergic rhinitis 214554977 J30.89 2758 [facility] [place] [address] 01/19/2024 15:40:29 01/19/2024 16:16:57 Perennial allergic rhinitis 860374321 J30.89 7533 ELIAS LAL RN Allergy [address] [place] [address] 100 [facility] [place] [address] 02/25/2024 14:05:43 02/25/2024 15:27:47 Perennial allergic rhinitis 792876730 J30.89 8313 [facility] All[facility] [address] [place] [address] 100 [facility] [place] [address] 03/02/2024 14:21:39 03/02/2024 14:30:52 Perennial allergic rhinitis 979727437 J30.89 42128 [facility] All[facility] [address] [place] [address], [place] [address] 04/07/2024 15:37:38 04/08/2024 10:54:39 Perennial allergic rhinitis 176632836 J30.89 39448 [facility] All[facility] [address] [place] [address] 100 [place] [address] 04/13/2024 16:47:55 04/13/2024 17:01:37 Perennial allergic rhinitis 415197134 J30.89 36481 THUY [address]EDROZA [address] 100 [place] [address] 04/21/2024 15:56:33 04/22/2024 10:43:15 Perennial allergic rhinitis 421214352 J30.89 67632 GEO CASTILLO MD [facility] [address] [place] [address] 04/26/2024 15:57:38 04/26/2024 16:59:19 Acute maxillary sinusitis 22981323 J01.00 she has acute sinusitis based on history. I will treat empiricall y with abx and prednisone . she will discuss with her PCP given her DM before starting prednisone . I discussed the risk of elevated blood sugars and avascular hip necrosis. Perennial allergic rhinitis 934916273 J30.89 The patient is benefiting from immunother apy and should continue. No local or systemic reactions. [id number] [facility] Allergy [address] [place] [address] 05/11/2024 17:18:22 05/11/2024 17:23:23 Perennial allergic rhinitis 064150167 J30.89 [id number] GERALDINE FARRAR MD [facility] [address] [address] 06/01/2024 09:06:05 06/01/2024 10:25:38 Allergic rhinitis 95806365 J30.9 Nasal congestion 8761374 0 R09.81 Atypical facial pain 713 67174 G50.1 15714 [facility] Allergy [address] [place] [address] 06/01/2024 11:13:32 06/01/2024 11:16:08 Perennial allergic rhinitis 902554074 J30.89 03405 [facility] [address] [place] [address] 06/23/2024 16:31:52 06/24/2024 11:32:20 Perennial allergic rhinitis 688740610 J30.89 [id number] GEO CASTILLO MD [facility] [place] [address] [place] [address] 07/08/2024 07:55:18 07/08/2024 12:38:42 Seasonal allergic rhinitis 632852856 J30.2 I suggested she try azelastine which I sent to her pharmacy. If she does not improve we could consider repeating allergy testing. [address]1971 GERALDINE FARRAR MD [facility] [address] [address] 09/13/2024 08:27:19 09/13/2024 09:09:33 Atypical facial pain 47570503 G50.1 Anterior epistaxis 05164 4002 R04.0 Nasal congestion 9895055 0 R09.81 64917 [facility] All[facility] [address] [place] [address] 09/21/2024 17:00:55 09/21/2024 17:30:24 Perennial allergic rhinitis 836038462 J30.89 [id number] ELIAS LAL RN Allergy 100 [facility],[place] [address] [place] [address] 09/28/2024 17:10:30 09/28/2024 17:16:06 Perennial allergic rhinitis 030892176 J30.89 50529 ELIAS LAL furnace feeder [address] [place] [address],[place] [address] [place] [address] 10/07/2024 10:34:03 10/07/2024 11:24:52 Perennial allergic rhinitis 533935158 J30.89 [id number] ELIAS LAL RN Allergy [address] [place] [address],[place] [address] [place] [address] 10/12/2024 17:24:01 10/12/2024 17:40:04 Perennial allergic rhinitis 141488139 J30.89 [id number] [facility] Allergy [address] [place] [address],[place] [address] [place] [address] 11/01/2024 11:23:02 11/01/2024 11:26:18 Perennial allergic rhinitis 940390761 J30.89 68607 [facility] Allergy [address] [place] [address],[place] [address] [place] [address] 11/16/2024 16:29:40 11/17/2024 15:30:44 Perennial allergic rhinitis 870337464 J30.89 [id number] [facility] Allergy [address] [place] [address], [address] [place] [address] 11/23/2024 16:30:51 11/23/2024 16:52:17 Perennial allergic rhinitis 821302965 J30.89 Health Concerns Section Related Observation LastModified by Organization Detai ls LastModified Time None Recorded Concern Status LastModified by Organization Details LastModified Time None Recorded Advance Directives Directive None Recorded Payers Encounter Date Sequence Insurance Name Policy Number Policy Ruby Covered Member ID Ruby Member ID Guarantor Name 10/07/2024 1 [facility] ([facility] [id number] Fozia Pedroza [id number] Fozia Pedroza 10/12/2024 1 [facility] [id number] Fozia Pedroza [id number] Fozia Pedroza 11/01/2024 1 [facility] [id number] Fozia Pedroza [id number] Fozia Pedroza 11/16/2024 1 [facility] [id number] Fozia Pedroza [id number] Fozia Pedroza 11/23/2024 1 [facility] [id number] Fozia Pedroza [id number] Fozia Pedroza OBGyn Episode No OBEpisode recorded.
== END 2024-12-06 10:03 | disposition home or self-care (01) ==
LOC: HO.HMCC 09:26
PROVIDERS: PCP Internal Medicine; Visit Provider Internal Medicine
DX: E11.69 Type 2 diabetes mellitus with other specified complication (principal); G44.89 Other headache syndrome; F32.2 Major depressive disorder, single episode, severe without psychotic features; L40.9 Psoriasis, unspecified; Z23 Encounter for immunization

== ENCOUNTER → 2024-12-06 09:25 | Outpatient (BNVA) | payer OTHER, SELFPAY | PROVIDERS: PCP Internal Medicine; Visit Provider Internal Medicine | DX: E11.69 Type 2 diabetes mellitus with other specified complication (principal); Z23 Encounter for immunization; G44.89 Other headache syndrome; F32.2 Major depressive disorder, single episode, severe without psychotic features; L40.9 Psoriasis, unspecified | CPT/HCPCS: 83036; 90471; 90715; 99212 ==

== ENCOUNTER 2025-01-18 15:20 | Outpatient (AMB) | payer OTHER, SELFPAY ==
--- NOTE | 2025-01-18 15:25 | MHC.PC.OV ---
Vital Signs 01/18/25 15:27 Height 5 ft 2 in Weight 137 lb BMI 25.1 BP 116/72 Blood Pressure Location Rt brachial Position Sitting Pulse 75 Pulse Source Pulse Oximeter Temp 98.0 F Temp Source Oral Pulse Oximetry (%) 99 Oxygen Delivery Method Room Air Intake Visit Reasons: Hemorrhoids Allergies shellfish derived [SHELLFISH DERIVED] Allergy (Intermediate, Verified 01/18/25 15:27) HIVES Seasonal Allergies Allergy (Mild, Verified 01/18/25 15:27) Sneezing Shellfish Allergy (Unknown, Uncoded 12/06/24 09:29) HIVES Medication List - Last Reconciled 01/18/25 by Adam Hernandez MD azelastine-fluticasone 137-50 mcg/spray 2 sprays intranasal BID cholecalciferol (vitamin D3) 25 mcg PO DAILY 90 days cyanocobalamin (vitamin B-12) 1,000 mcg PO DAILY 90 days epinephrine IM glipizide orally 2 times a day; 2 tabs at night and one in am 90 days metformin 1,000 mg PO BID 90 days sumatriptan succinate 50 mg PO ONCE PRN 30 days triamcinolone acetonide 0.1% 1 appl topical DAILY 30 days Tobacco use date assessed: 01/18/25 Dental Screening Dental Screen Date: 01/18/25 Did you have a dental visit in the last 12 months?: No Did you have a dental problem in the last 6 months where you did not have access to dental care?: No Was dental information given to patient?: No HPI Hemorrhoids HPI Details History - The patient is a 44-year-old female presenting with complaints of a thrombosed external hemorrhoid. - The issue started approximately four to five days prior to the visit, on a Thursday or . - The patient reports a sensation of discomfort and itchiness in the affected area, which subsides temporarily with the application of yabb-afu-nlfqkqz cream (PH1) and wipes. - There is no accompanying pain, bleeding, or change in size. - The use of a donut cushion or sitting in lukewarm water at home can help reduce discomfort. - Patient states her bowel movements are normal, with no constipation or excessive straining, and stool consistency is soft. Medical History: - Hemorrhoid history 17 years ago . Medications: - Llel-rqg-dlgbhcp PH1 cream for hemorrhoid management Problem List - Thrombosed External Hemorrhoid Patient Instructions - Use a donut cushion while sitting to relieve pressure on the hemorrhoid. - Sit in a tub with lukewarm water to alleviate symptoms. - A steroid cream will be provided for itching relief. - Avoid straining during bowel movements; ensure stool remains soft. - Understand that hemorrhoids may recur and learn to manage symptoms at onset. Review of Systems - General: No fever no chills - Neurological: No headaches no dizziness - Ear nose throat: No sore throat no hearing difficulty no ear pain - Cardiovascular: No syncope, no chest pain, no palpitations - Gastrointestinal: No nausea vomiting or diarrhea - Endocrine: No polyuria polydipsia no heat intolerance - Genitourinary: No dysuria , no blood in urine Physical Exam General: No acute distress HEENT: No acute findings Neck: Supple Respiratory system: Able to talk in full sentences, no audible wheeze Cardiovascular: S1-S2 regular in rate and rhythm Gastrointestinal/rectal exam: Single medium size Thrombosed external hemorrhoid, no inflammation, stool soft Extremities: No new findings VOLUNTEER ASSISTANT: Alert awake oriented x3 motor sensory intact Skin: Normal turgor [facility] Medical History Sore throat Upper respiratory tract infection Diabetes mellitus, type 2 Constipation by delayed colonic transit Headache syndrome Encounter to establish care Surgical History History of ovarian cyst Family History Father HTN (hypertension) CVD (cardiovascular disease) Diabetes mellitus HIV (human immunodeficiency virus infection) Hx of CABG Substance use disorder Mother Mental health disorder Brother Substance use disorder Sister No problems noted. Son Neuroblastoma Mental health disorder Paternal Aunt Substance use disorder Paternal Uncle Substance use disorder Social History Housing: House Alcohol intake: never Patient Tobacco Use Status: Never used Tobacco e-Cigarette/Vaping Use: Never Used service: No Current occupational status: employed Cognitive needs: No Hearing needs: No Vision needs: Yes Questionnaire Thrive Questionnaire Date Thrive assessed: 08/26/24 I am a: Patient What is your living situation today?: I have a steady place to live Within the past 12 months, did the food you bought not last and you didn't have the money to get more?: Never true Within the past 12 months, did you worry whether your food would run out before you got money to buy more?: Never true Do you have trouble paying for medicines?: No Do you have trouble getting transportation to medical appointments?: No Do you have trouble paying your heating and electricity bill?: No Do you have trouble taking care of your child, family member or friend?: No Do you have trouble with day-to-day activities such as bathing, preparing meals, shopping, managing finances, etc.?: No Are you currently unemployed and looking for a job?: No Are you interested in more education?: No Please select the resources that you would like help with: None Currently or been in a relationship where the following occur: No concerns reported THRIVE Score: 0 EDITA-7 AMB Questionnaire EDITA-7 Date EDITA - 7 assessed: 08/26/24 Source: Developed by Drs. Clifford Parish, Mary Jo Adorno, Martin Santizo and colleagues, with an educational néstor from [employer]. Physical exam (Primary Care) Vital Signs: Last Vital Signs Temp 98.0 F 01/18/25 15:27 Pulse 75 01/18/25 15:27 BP 116/72 01/18/25 15:27 Pulse Ox 99 01/18/25 15:27 Oxygen Delivery Method Room Air 01/18/25 15:27 BMI result Body Mass Index 25.1 Tobacco/Smoking Status: Tobacco use Status Tobacco use date assessed 01/18/25 01/18/25 15:31 Patient Tobacco Use Status Never used Tobacco 01/18/25 15:31 e-Cigarette/Vaping Use Never Used 01/18/25 15:31 Thrive Assessment: Date of Thrive Assessment Date Thrive assessed 08/26/24 01/18/25 15:31 Currently or been in a relationship where the following occur: No concerns reported Coding Level of Care Code Est Pt Level 3 (98902) Diagnoses Thrombosed external hemorrhoid K64.5 Assessment & Plan Assessment & Plan (1) Thrombosed external hemorrhoid: Code(s): K64.5 - Perianal venous thrombosis Category: Medical Plan History - The patient is a 44-year-old female presenting with complaints of a thrombosed external hemorrhoid. - The issue started approximately four to five days prior to the visit, on a Thursday or . - The patient reports a sensation of discomfort and itchiness in the affected area, which subsides temporarily with the application of fqwa-nae-coqeyrh cream (PH1) and wipes. - There is no accompanying pain, bleeding, or change in size. - The use of a donut cushion or sitting in lukewarm water at home can help reduce discomfort. - Patient states her bowel movements are normal, with no constipation or excessive straining, and stool consistency is soft. Medical History: - Hemorrhoid history 17 years ago . Medications: - Fabc-aoz-prwdoem PH1 cream for hemorrhoid management Problem List - Thrombosed External Hemorrhoid Patient Instructions - Use a donut cushion while sitting to relieve pressure on the hemorrhoid. - Sit in a tub with lukewarm water to alleviate symptoms. - A steroid cream will be provided for itching relief. - Avoid straining during bowel movements; ensure stool remains soft. - Understand that hemorrhoids may recur and learn to manage symptoms at onset. Medications: New hydrocortisone 2.5% 1 appl topical BID PRN 30 grams 0RF itching hemmorodial 30 days
[2025-01-18 15:27] VITALS: BP 116/72; PULSE 75; TEMP 36.7; O2SAT 99; BMI 25.1
--- OUTSIDE RECORDS SUMMARY | 2025-01-18 15:32 | XMS_ITS | Clinical Summary ---
Author Organization [facility] [address] [facility] lding Address [address] [place] [address] Phone Care Team Providers Care Project Technician Name Role Phone Kezia Jaime MD Primary Care Provider [phone] Allergies Active Allergy Reactions Criticality Noted Date [...] each day. for 7 days 5 Active medroxyPROGESTE Dontae 150 mg/mL injection Inject 1 mL (150 mg total) into the shoulder, thigh, or buttocks every 3 (three) months. 1 mL 2 5 Active Active Problems Problem Noted Date Diagnosed Date Diabetes mellitus ([facility] V24, [facility] V28) Abnormal mammogram 10/06/2019 Overview (06/01/2024): 09/2019 [...] PM EDT Clinical Support Obstetrics and Gynecology [address] [phone] Encounter for management and injection of depo-Provera (Primary Dx) from Last 3 Months Surgical History Surgery Date Site/Laterality Comments OVARIAN CYST REMOVAL 2015 PROCEDURE: IN OVARIAN CYSTECTOMY UNI/BI OTHER SURGICAL HISTORY 2019 [...] PM EDT Clinical Support Obstetrics and Gynecology [address] [phone] Health Maintenance Due Date Last Done Comments [...] Procedure Name Priority Date/Time Associated Diagnosis Comments HPV Routine 01/08/2023 ERASTO SCREENING DIGITAL Routine [...] AM EDT Narrative 12/17/2022 9:40 AM EDT [facility] Diagnostic Imaging Department [address] [place] [id number] Patient: ??FOZIA PEDROZA ?/Age/Sex: 1980 - 42 - F Unit#: ??[id number] ? Location/Status: ??SPDIMAM/REG CLI ? Mnemonic/Ordering Site: [...] the MLO projection. Computer aided detection with MediaSpike 7.2-H and Planbox 3D 3.1 was employed. TISSUE DENSITY: c. [...] RECOMMENDATION(S): 1: Special mammographic view(s) needed LEFT 89253, [id number] 3340F, 7025F Dictating Physician: ??NORMA MEYER MD Electronically Signed by: ??NORMA MEYER MD Dic Date/Time: ??12/17/22936 Sign date/Time: ??12/17/22939 Procedure Note Norma Meyer MD - 09/18/2023 [facility] Diagnostic Imaging Department [address] [place] [id number] Patient: FOZIA PEDROZA /Age/Sex: 1980 - 42 - F Unit#: [id number] [facility]/Ordering Site: [facility] Ordering Physician: ADAM JAY MD [facility] Screening Digital - 12/17/22 - 823 EXAM: [facility] Screening Digital EXAM DATE AND TIME: 12/17/2022 8:24 AM HISTORY: Screening. Family history of breast carcinoma including maternalaunt and paternal grandmother. COMPARISON: 12/03/21, 10/05/20, 04/04/20, 10/04/19, 10/03/19 TECHNIQUE: CC and MLO views of both breasts were obtained using fullfield digital mammography. Bilateral digital breast tomosynthesis was performedin the MLO projection. Computer aided detection with MediaSpike 7.2-H andPlanbox 3D 3.1 was employed. TISSUE DENSITY: c. [...] RECOMMENDATION(S): 1: Special mammographic view(s) needed LEFT 43044, 94973 3340F, 7025F Dictating Physician: NORMA MEYER MD Electronically Signed by: NORMA MEYER MD Dic Date/Time: 12/17/22936 Sign date/Time: 12/17/22939 us Adam Jay MD IMG BI PROCEDURES Final Result * HIV Screening (10/07/2021) HIV Screening Abstracted Historical Provider HEALTH MAINTENANCE Final Result * Hepatitis C Screening (10/07/2021) Hepatitis C Screening Abstracted Historical Provider HEALTH MAINTENANCE Final Result from Last 3 Months or Most Recently Relevant to Health Maintenance Insurance [facility] Care Teams Project Technician Relationship Specialty Start Date End Date Kezia Jaime MD [address] [place] [address] , [address] Physician Associ D/B/A: [facility] [place] Millan PCP - General Internal Medicine 02/13/20
== END 2025-01-18 15:38 | disposition home or self-care (01) ==
LOC: HO.HMCC 15:22
PROVIDERS: PCP Internal Medicine; Visit Provider Internal Medicine
DX: K64.5 Perianal venous thrombosis (principal)

== ENCOUNTER → 2025-01-18 15:20 | Outpatient (BNVA) | payer OTHER, SELFPAY | PROVIDERS: PCP Internal Medicine; Visit Provider Internal Medicine | DX: K64.5 Perianal venous thrombosis (principal) | CPT/HCPCS: 99212 ==

== ENCOUNTER 2025-02-20 07:51 | Outpatient (REF) | payer OTHER, SELFPAY ==
--- OUTSIDE RECORDS SUMMARY | 2025-02-15 14:30 | XMS_ITS | Encounter Summary ---
[facility] Address [address] [place] [address] Care Team Providers Care Sales Development Associate Name Role Phone Adam Hernandez MD Primary Care Provider [phone] Reason for Visit * Reason Comments depo Encounter Details Date Type Department Care Team (Latest Contact Info) Description 02/15/2025 2:30 PM EDT Clinical Support Obstetrics and Gynecology - [address] [phone] Hot flashes (Primary Dx); Depo-Provera contraceptive status Social History Tobacco Use Types Packs/Day Years Used Date Smoking Tobacco: Never Smokeless Tobacco: Never Alcohol Use Standard Drinks/Week Comments No 0 (1 standard drink = 0.6 oz pur e alcohol) Comments No Sex and Gender Information Value Date Recorded Sex Assigned at Not on file Legal Sex Female 10:48 PM EST Gender Identity Not on file Sexual Orientation Not on file documented as of this encounter Last Filed Vital Signs Vital Sign Reading Time Taken Comments Blood Pressure 127/84 02/15/2025 2:44 PM EDT Pulse - - Temperature - - Respiratory Rate - - Oxygen Saturation - - Inhaled Oxygen Concentration - - Weight 62.1 kg (137 lb) 02/15/2025 2:44 PM EDT Height - - Body Mass Index 25.06 02/02/2025 1:39 PM EDT documented in this encounter Progress Notes * Yaneli Hunter MA - 02/15/2025 2:30 PM EDT Patient received last Depo injection on 11/23/24. She does not have any concerns today regarding depouse. Depo-Provera administered in right deltoid . See Immunization section. Medication is patient supplied. Patient was instructed to remain in the department for 20 minutes and report any adverse effects. She was instructed when to return for the next visit. Please review MAR report for details. documented in this encounter Plan of Treatment Upcoming Encounters Date Type Department Care Team (Late st Contact Info) Description 05/15/2025 11:00 AM EDT Clinical Support Obstetrics and Gynecology - [address] [place] [phone] Scheduled Orders Name Type Priority Associated Diagnoses Orde r Schedule Thyroid stimulating hormone with reflex to free t4 and free t3 Lab Routine Hot flashes 1 Occurrences starting 02/15/2025 until 05/18/2025 documented as of this encounter Visit Diagnoses Diagnosis Hot flashes- Primary Depo-Provera contraceptive status documented in this encounter Administered Medications Inactive Administered Medications - up to 3 most recent administrations Medication Order MAR Action Action Date Dose Rate Site medroxyPROGESTERone (DEPO-PROVERA) injection 150 mg 150 mg, intramuscular, Once, On Thu02/15/25 at 1500, For 1 dose, SHAKE WELL HAZARDOUS Drug Precautions - Low Risk (Category A/NIOSH Group 3) Reproductive Risk Only: - Double pair of ASTM standard D6978 certified chemotherapy gloves - Eye protection (goggles or face shield) required only with a potential for facial contact (i.e. concern for spitting or vomiting of the dose during or after administration) - Staff at reproductive risk (actively trying to conceive, or may be become , and ): Chemotherapy gownIndications:Depo-Provera contraceptive status Given 02/15/2025 2:44 PM EDT 150 mg Right Deltoid documented in this encounter Orders Medications Ordered That Juan Manuel ht Not Have Been Administered Count Last Ordered Date First Ordered Date medroxyPROGESTERone (DEPO-WA OVERA) injection 150 mg 1 02/15/2025 documented in this encounter Care Teams Sales Development Associate Relationship Specialty Start Date End Date Adam Hernandez MD [address] [place] [address] PCP - General Internal Medicine 02/02/25 documented as of this encounter
--- OUTSIDE RECORDS SUMMARY | 2025-02-20 07:54 | XMS_ITS | Data Portability ---
Author Organization [place] [facility], Allergy Address [address] [place] [phone] Care Team Providers Care Aesthetics Instructor Name Role Phone PIERREHELEN Primary Care Provider Assessment Encounter Date Assessment Date Assessment LastModified by Organization Details LastModified Time 12/28/2024 12/28/2024 Visit With: Thuy Pedroza Use of Antihistamine s: No If yes: Vial Test Change in medications: No If yes Increase in asthma symptoms If yes, inhaler use: Reaction to last injections: No If yes: Allergy Symptoms: Other: Missed: Dose Aware of Vial Test Notes: [email or web address] Not available 12/28/2024 16:59:31 01/04/2025 01/04/2025 Visit With: KATHERINE Cheng Use of Antihistamine s: No If yes: Vial Test Change in medications: No If yes Increase in asthma symptoms If yes, inhaler use: Reaction to last injections: No If yes: Allergy Symptoms: Other: Missed: Dose Aware of Vial Test Notes: [email or web address] Not available 01/04/2025 17:27:28 01/11/2025 01/11/2025 Visit With: KATHERINE Cheng Use of Antihistamine s: No If yes: Vial Test Change in medications: No If yes Increase in asthma symptoms If yes, inhaler use: Reaction to last injections: No If yes: Allergy Symptoms: Other: Missed: Dose Aware of Vial Test Notes: [email or web address] Not available 01/11/2025 16:28:21 01/25/2025 01/25/2025 Visit With: Abhijeet Korzec, RMA Use of Antihistamine s: No If yes: Vial Test Change in medications: No If yes Increase in asthma symptoms If yes, inhaler use: Reaction to last injections: No If yes: Allergy Symptoms: Other: Missed: Dose Aware of Vial Test Aware: Notes: [email or web address] Not available 01/25/2025 17:22:30 02/09/2025 02/09/2025 Visit With: Abhijeet Daniels KATHERINE Use of Antihistamine s: No If yes: Vial Test Change in medications: No If yes Increase in asthma symptoms If yes, inhaler use: Reaction to last injections: No If yes: Allergy Symptoms: Other: Missed: 1 week Dose Repeated Aware of Vial Test Aware: Notes: [email or web address] Not available 02/09/2025 13:38:29 Plan of Treatment Reminders Order Date Submit Date Provider Last Modified By Organization Details Last Modified Time Details Appointments None record ed. Lab None record ed. Referral None record ed. Procedures None record ed. Surgeries None record ed. Imaging None record ed. Medication Orders None record ed. Patient TargetsNo targets recorded. Patient InstructionsNo instructions recorded. Reason for Referral None Reported. Problems Name Problem SNOMED Code Status Onset Date Resolution Date Notes Provider Name and Address Organization Details Recorded Time Acute sinusitis 60043737 Active 2021 Other acute sinusitis ; Note: Date Diagnosed : 04/11/2022 4:55 PM (J01.80) Not Available [facility] 4 03:18:19 Allergic rhinitis 43740359 Active 2023 Allergic rhinitis: Due to other allergen; Note: Date Diagnosed : 08/26/2023 4:34 PM (477.8) Note: Date Diagnosed : 08/26/2023 4:34 PM (477.8) Allergi c rhinitis: Due to other allergen; Note: Date Diagnosed : 08/21/2023 2:09 PM (477.8) Note: Date Diagnosed : 08/21/2023 2:09 PM (477.8) ; Start Date : Allergi [...] 12:16 PM (477.8) ; Start Date : 3 [...] ; Start Date : 3 Not Available [facility] 4 01:25:08 Bilateral disorder of Eustachia n tubes [id number] 62332 Active 2020 Other specified disorders of Eustachia n tube, bilateral ; Note: Date Diagnosed : 1 11:11 AM (H69.83) Not Available [facility] 4 03:18:18 Recurrent acute sinusitis 679213955 Active 2021 Other acute recurrent sinusitis ; Note: Date Diagnosed : 2 5:29 PM (J01.81) Not Available [facility] 4 03:18:19 Pain of right temporoma ndibular joint 61067675594 233867 Active 2020 Arthralgi a of right temporoma ndibular joint; Note: Date Diagnosed : 1 11:48 AM (M26.621) Not Available [facility] 4 03:18:19 Allergic rhinitis caused by pollen 93697156 Active 2022 Allergic rhinitis due to pollen; Note: Date Diagnosed : 09/26/2022 4:51 PM (J30.1) Not Available [facility] 4 03:18:19 Perennial allergic rhinitis 493929308 Active 2023 KATHERINE CHENG [address] [facility] [place], [place], [address] , [facility] 4 17:05:30 Acute maxillary sinusitis 47138706 Active 2023 GEO CASTILLO MD [address] [place], [place] [address]on [place],[address], [place], [address] , [facility] - [facility] [place] 4 16:53:35 Chronic sinusitis 77701100 Active 2023 GEO CASTILLO MD [address] [place], [place] [address]on [place] [address], [place], [address] , [facility] - [facility] [place] 4 15:10:31 Nasal congestio n 05122318 Active 2023 GERALDINE FARRAR MD [address] [place] [address],[place] [address], [place], [address] , [facility] - [facility] [place] [facility] 4 10:22:29 Atypical facial pain 26186319 Active 2023 GERALDINE FARRAR MD [address] [place] [address],[place] [address], [place], [address] , [facility] - [facility] 4 21:56:24 Seasonal allergic rhinitis 438545769 Active 2023 GEO CASTILLO MD [address] [place], [place] [address]on [place] [address], [place], [address] , [facility] - [facility] [place] [facility] 4 07:59:00 Anterior epistaxis 127361750 Active 2024 GERALDINE FARRAR MD [address] [place], [place] [address]on [place] [address], [place], [address] , [facility] - [facility] [place] [facility] 5 09:42:15 Problem Notes None recorded. Procedures Surgical History Date Name Laterality Status Provider Name and Address Organization Details Recorded Time 02/10/20 Allergy Immunotherapy Injections completed KATHERINE CHENG [address] [facility] [place],[address], [place], [address], [place] [facility] 02/09/2025 13:37:57 01/26/20 25 Allergy Immunotherapy Injections completed CHETNA CRAVENA [address], [place], [address], [place] [facility] 01/25/2025 17:22:20 01/12/20 25 Allergy Immunotherapy Injections completed ABHIJEET DANIELS, RMA [address], [place], [address], [place] [facility] 01/11/2025 16:28:14 01/05/20 25 Allergy Immunotherapy Injections completed ABHIEJET DIMASC RMA [address], [place], [address], [place] [facility] 01/04/2025 17:27:15 12/29/19 25 Allergy Immunotherapy Injections completed THUY PEDROZA RMA [address], [place], [address], [place] [facility] 12/28/2024 16:57:02 12/22/19 25 Allergy Immunotherapy Injections completed ABHIJEET DANIELS RMA [address], [place], [address], [place] [facility] 12/21/2024 16:11:27 12/07/19 25 Allergy Immunotherapy Injections completed THUY PEDROZA RMA [address], [place], [address], [place] [facility] 12/06/2024 12:10:36 11/24/19 25 Allergy Immunotherapy Injections completed ABHIJEET DANIELS RMA [address], [place], [address], [place] [facility] 11/23/2024 16:51:46 11/17/19 25 Allergy Immunotherapy Injections completed THUY PEDROZA RMA [address], [place], [address], [place] [facility] 11/16/2024 17:21:42 11/02/19 25 Allergy Immunotherapy Injections completed ABHIJEET DIMASC, RMA [address], [place], [address], [place] [facility] 11/01/2024 11:59:08 10/12/19 25 Allergy Immunotherapy Injections completed ELIAS LAL RN [address], [place], [address], [place] [facility] 10/12/2024 17:39:46 10/07/19 25 Allergy Immunotherapy Injections completed ELIAS LAL RN [address] [facility] [address], [place], [address], [place] [facility] 10/07/2024 11:24:17 09/28/19 25 Allergy Immunotherapy Injections completed ELIAS LAL RN [address] [facility] [address], [place], [address], [place] [facility] 09/28/2024 17:15:28 09/21/19 25 Allergy Immunotherapy Injections completed KATHERINE CRAVEN [address] [facility], [place], [address], [place] [facility] 09/21/2024 17:29:47 06/23/20 24 Allergy Immunotherapy Injections completed CHETNA CRAVENA [address] [facility], [place], [address], [place] [facility] 06/23/2024 16:33:26 06/01/20 24 Allergy Immunotherapy Injections completed ABHIJEET DANIELS RMA [address], [place], [address], [place] [facility] 06/01/2024 11:14:57 05/11/20 24 Allergy Immunotherapy Injections completed ABHIJEET DANIELS RMA [address], [place], [address], [place] [facility] 05/11/2024 17:20:23 04/21/20 24 Allergy Immunotherapy Injections completed CHETNA CRAVENA [address], [place], [address], [place] [facility] 04/21/2024 16:20:17 04/13/20 24 Allergy Immunotherapy Injections completed ABHIJEET DANIELS RMA [address], [place], [address], [facility] - [facility] 04/13/2024 16:57:24 04/07/20 24 Allergy Immunotherapy Injections completed CHETNA CRAVEN [address] [facility],[address], [address], [facility] - [facility] 04/07/2024 16:25:04 03/02/20 24 Allergy Immunotherapy Injections completed ABHIJEET DANIELS [facility] [address] [facility],[address], [address], [facility] - [facility] 03/02/2024 14:30:05 02/25/20 24 Allergy Immunotherapy Injections completed ELIAS LAL RN [address] [facility],[address], [address], [facility] - [facility] 02/25/2024 15:26:18 01/19/20 24 Allergy Immunotherapy Injections completed THUY PEDROZA Bony [address] [place] [address],[address], [address], [facility] - [facility] 01/19/2024 15:42:11 12/30/19 24 Allergy Immunotherapy Injections completed ABHIJEET AGUEDALUI[address], [address], [facility] - [facility] 12/30/2023 17:05:54 Imaging Results None recorded. Procedure [...] mg capsule 05/30 completed Medicati on ID: [id number] D uration Value: 14 Brand Name: doxycycl [...] mg tablet 04/25 completed Medicati on ID: [id number] B rand Name: escitalo pram oxalate Send Method: E-Prescr ibed Sub s Allowed: subs OK Medic ationGen ericName : escitalo pram oxalate Not Available Not Available Not Available azelastin e 137 mcg-fluti casone 50 mcg/spray nasal spray Turner 2 sprays twice a day by intranas al route. 2023 active Not Available Not Available Not Avai lable Robertoleazeem 17.5 mcg/24 hr (up to 5 years) 19.5 mg intrauter ine device 04/25 completed Medicati on ID: [id number] B rand Name: Clive Send Method: E-Prescr ibed Sub s Allowed: subs OK Medic ationGen ericName : Clive Not Available Not Available Not Available glipizide [...] Code Diagnosis ICD10 Code Diagnosis Note 434 ELIAS LAL RN Allergy [address] [place] [address] 100 [place] [address] 12/30/2023 17:04:11 01/01/2024 15:55:03 Perennial allergic rhinitis 196830556 J30.89 2758 THUY PEDROZA [facility] Allergy [address] [place] [address] it 100 [place] [address] 01/19/2024 15:40:29 01/19/2024 16:16:57 Perennial allergic rhinitis 979659501 J30.89 7533 THUY PEDROZA [facility] All[facility] [address] [place] [address] it 100 [place] [address] 02/25/2024 14:05:43 02/25/2024 15:27:47 Perennial allergic rhinitis 085234816 J30.89 8313 ABHIJEET DIMAS [facility] Allergy [address] [place] [address] ite 100 [place] [address] 03/02/2024 14:21:39 03/02/2024 14:30:52 Perennial allergic rhinitis 525093970 J30.89 48059 THUY PEDROZA [facility] All[facility] [address] [place] [address] it 100 [place] [address] 04/07/2024 15:37:38 04/08/2024 10:54:39 Perennial allergic rhinitis 526119221 J30.89 73485 ABHIJEET DANIELS [facility] Allergy [address] [place] [address] [place] [address] 04/13/2024 16:47:55 04/13/2024 17:01:37 Perennial allergic rhinitis 257036278 J30.89 79834 ELIAS LAL RN Allergy [address] [place], [place] [address] [address] 04/21/2024 15:56:33 04/22/2024 10:43:15 Perennial allergic rhinitis 612642095 J30.89 72809 GEO CASTILLO MD [facility] [address] [address] 04/26/2024 15:57:38 04/26/2024 16:59:19 Acute maxillary sinusitis 14234006 J01.00 she has acute sinusitis based on history. I will treat empiricall y with abx and prednisone . she will discuss with her PCP given her DM before starting prednisone . I discussed the risk of elevated blood sugars and avascular hip necrosis. Perennial allergic rhinitis 693668797 J30.89 The patient is benefiting from immunother apy and should continue. No local or systemic reactions. 64028 ABHIJEET DIMAS [facility] All[facility] [address] [place] [address] [place] [address] 05/11/2024 17:18:22 05/11/2024 17:23:23 Perennial allergic rhinitis 037735719 J30.89 89067 GERALDINE FARRAR MD [facility] [address] [address] 06/01/2024 09:06:05 06/01/2024 10:25:38 Allergic rhinitis 30373119 J30.9 Nasal congestion 8529131 0 R09.81 Atypical facial pain 713 94496 G50.1 96952 ABHIJEET DANIELS [facility] All[facility] [address] [place] [address] [place] [address] 06/01/2024 11:13:32 06/01/2024 11:16:08 Perennial allergic rhinitis 144877974 J30.89 96178 THUY PEDROZA [facility] All[facility] [address] [place] [address] 100 [place] [address] 06/23/2024 16:31:52 06/24/2024 11:32:20 Perennial allergic rhinitis 916680466 J30.89 22914 GEO CASTILLO MD [facility] [place] [address] [place] [address] 07/08/2024 07:55:18 07/08/2024 12:38:42 Seasonal allergic rhinitis 275309233 J30.2 I suggested she try azelastine which I sent to her pharmacy. If she does not improve we could consider repeating allergy testing. 69061 GERALDINE FARRAR MD [facility] [address] [address] 09/13/2024 08:27:19 09/13/2024 09:09:33 Atypical facial pain 59484000 G50.1 Anterior epistaxis 25905 4002 R04.0 Nasal congestion 8381341 0 R09.81 64221 THUY PEDROZA [facility] All[facility] [address] [place] [address] 09/21/2024 17:00:55 09/21/2024 17:30:24 Perennial allergic rhinitis 640026925 J30.89 49769 THUY PEDROZA [facility] [address] [place] [address] 09/28/2024 17:10:30 09/28/2024 17:16:06 Perennial allergic rhinitis 645813076 J30.89 21464 THUY PEDROZA [facility] [address] [place] [address] 10/07/2024 10:34:03 10/07/2024 11:24:52 Perennial allergic rhinitis 145556757 J30.89 25403 ELIAS LAL RN Allergy [address] [place] [address] 100 [place] [address] 10/12/2024 17:24:01 10/12/2024 17:40:04 Perennial allergic rhinitis 446954214 J30.89 [address]194 [facility], [facility] [address] [facility] [place] [address] [place] [address] 11/01/2024 11:23:02 11/01/2024 11:26:18 Perennial allergic rhinitis 691812981 J30.89 86004 THUY PEDROZA [facility] [address] [facility] [place] [address] [place] [address] 11/16/2024 16:29:40 11/17/2024 15:30:44 Perennial allergic rhinitis 064999318 J30.89 89711 [facility] [address] [facility] [place] [address] [place] [address] 11/23/2024 16:30:51 11/23/2024 16:52:17 Perennial allergic rhinitis 202911296 J30.89 66018 THUY PEDROZA A Allergy [address] [facility],[place] [address] [place] [address] 12/06/2024 11:15:57 12/06/2024 12:11:00 Perennial allergic rhinitis 280759933 J30.89 98297 THUY PEDROZA A Allergy [address] [facility],[place] [address] [place] [address] 12/21/2024 15:58:11 12/21/2024 16:12:00 Perennial allergic rhinitis 674930531 J30.89 79330 THUY PEDROZA A Allergy [address] [facility],[place] [address] [place] [address] 12/28/2024 16:28:45 12/28/2024 17:00:22 Perennial allergic rhinitis 667088067 J30.89 30709 [facility], [facility] [address] [facility] [place] [address] [place] [address] 01/04/2025 16:19:57 01/04/2025 17:27:46 Perennial allergic rhinitis 731481990 J30.89 08495 [facility], [facility] All[facility] [address] [facility] [place] [address] [place] [address] 01/11/2025 16:23:04 01/11/2025 16:28:34 Perennial allergic rhinitis 825869907 J30.89 91676 ABHIJEET DIMAS, RMA Allergy [address] [facility],[place] [address] [place] [address] 01/25/2025 17:21:31 01/25/2025 17:23:02 Perennial allergic rhinitis 744668236 J30.89 40869 ABHIJEET DIMAS, R[facility] All[facility] [address] [facility],[place] [address] [place] [address] 02/09/2025 13:08:29 02/09/2025 13:38:59 Perennial allergic rhinitis 518105707 J30.89 Health Concerns Section Related Observation LastModified by Organization Detai ls LastModified Time None Recorded Concern Status LastModified by Organization Details LastModified Time None Recorded Advance Directives Directive None Recorded Payers Insurance Date Sequence Insurance Name Policy Number Policy Ruby Covered Member ID Ruby Member ID Guarantor Name 09/13/2024 1 [facility] (MEDICAID HMO) [id number] Fozia Pedroza [id number] Fozia Pedroza 02/09/2025 1 [facility] (HMO) [id number] Fozia Pedroza [id number] Fozia Pedroza OBGyn Episode No OBEpisode recorded.
[2025-02-20 10:47] LABS: MANUAL DIFF FLAG NO
[2025-02-20 10:57] LABS: Hematocrit 38.1 % (37.0-47.0); Hemoglobin 12.6 g/dl (12.0-16.0); Imm Gran Abs Auto 0.03 X10*3/uL (0.00-0.03); Imm Gran Pct Auto 0.3 % (0.0-0.4); Lymphocytes Absolute Auto 3.3 X10*3/uL (1.2-4.9); Mean Corpuscular HGB Conc 33.1 g/dl (31.0-35.0); Mean Corpuscular Hemoglobin 29.4 pg (27.0-33.0); Mean Corpuscular Volume 88.8 fL (80.0-98.0); NRBC Abs Auto 0.000 X10*3/uL (0.0-0.012); NRBC Pct Auto 0.0 /100WBC (0.0-0.2); Platelet Count 435 X10*3/uL (160-400); Red Blood Count 4.29 X10*6/uL (4.20-5.50); White Blood Count 9.3 X10*3/uL (4.8-10.8)
[2025-02-20 11:04] LABS: Hemoglobin A1C 146.8458 umol/L; Total Hemoglobin (HGBA1C) 3290.0894 umol/L
[2025-02-20 11:49] LABS: Alanine Aminotransferase 21 U/L (0-31); Albumin Level 4.5 g/dL (3.5-5.0); Alkaline Phosphatase 62 U/L (39-117); Anion Gap 14 (12-20); Aspartate Amino Transferase 26 U/L (5-31); Blood Urea Nitrogen 23 mg/dL (9-16); Calcium 9.9 mg/dL (8.4-10.2); Carbon Dioxide 22 mmol/L (22-29); Chloride 108 mmol/L (96-108); Cholesterol 184 mg/dL (<200); Estimated Glomerular Filt Rate > 60; HDL Cholesterol 42 mg/dL (>40); Potassium 5.0 mmol/L (3.3-5.1); Sodium 139 mmol/L (135-145); Total Protein 7.8 g/dL (6.5-8.0); Triglycerides 128 mg/dL (<150)
== END 2025-02-20 07:52 | disposition home or self-care (01) ==
LOC: HO.HMGCLDS 07:51
PROVIDERS: PCP Internal Medicine; Visit Provider Internal Medicine
DX: E11.69 Type 2 diabetes mellitus with other specified complication (principal); F32.2 Major depressive disorder, single episode, severe without psychotic features; G44.89 Other headache syndrome; L40.9 Psoriasis, unspecified
CPT/HCPCS: 36415; 80053; 80061; 83036; 85025

== ENCOUNTER 2025-02-21 15:30 | Outpatient (AMB) | payer OTHER, SELFPAY ==
[2025-02-21 15:34] VITALS: BP 116/80; PULSE 78; TEMP 36.6; O2SAT 98; BMI 25.4
--- NOTE | 2025-02-21 15:34 | MHC.PC.OV ---
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: No Is last menstrual period known: No Post menopausal: No Patient : No Allergies shellfish derived (SHELLFISH DERIVED) Allergy (Intermediate, Verified 02/21/25 15:39) HIVES Seasonal Allergies Allergy (Mild, Verified 02/21/25 15:39) Sneezing Shellfish Allergy (Unknown, Uncoded 12/06/24 09:29) HIVES Medication List - Last Reconciled 02/21/25 by Adam Hernandez MD azelastine-fluticasone 137-50 mcg/spray 2 sprays intranasal BID cholecalciferol (vitamin D3) 25 mcg PO DAILY 90 days cyanocobalamin (vitamin B-12) 1,000 mcg PO DAILY 90 days epinephrine IM glipizide orally 2 times a day; 2 tabs at night and one in am 90 days hydrocortisone 2.5% 1 appl topical BID PRN 30 days metformin 1,000 mg PO BID 90 days sumatriptan succinate 50 mg PO ONCE PRN 30 days triamcinolone acetonide 0.1% 1 appl topical DAILY 30 days Tobacco use date assessed: 02/21/25 Dental Screening Dental Screen Date: 01/18/25 Did you have a dental visit in the last 12 months?: No Did you have a dental problem in the last 6 months where you did not have access to dental care?: No Was dental information given to patient?: No HPI Annual PE HPI Details Physical exam - The patient is a 44 year old female presenting with hypoglycemia and menopausal symptoms. - Hypoglycemia: The patient reports experiencing low blood sugar levels starting on February 08, with readings going as low as 65 mg/dL. She notices symptoms such as shaking and sweating when her sugar drops into the 60s. - Menopausal Symptoms: The patient experiences severe night sweats, occasional day sweats, difficulty sleeping, and a decreased libido. These symptoms have been impacting her relationship. She attributes some of the sweating to low sugar levels but suspects menopausal changes as the primary cause. She does not want to discontinue the Depo shot due to her history of ovarian cysts and endometriosis. - Headaches: The patient reports severe headaches that worsen with menopause and sugar fluctuations, previously managed with amitriptyline without success. Medical History: - Type 2 Diabetes Mellitus - Endometriosis - History of ovarian cysts - History of hemorrhoids (resolved) Social History: - She mentions a significant relationship with her boyfriend is affected by menopausal symptoms and low libido. Health Maintenance - Mammogram conducted recently with results pending - Depo-Provera injection received last week Medications - Glipizide 2.5 mg as part of diabetes management - Metformin 1 g twice a day for diabetes control - Vitamin D and B12 supplementations Diagnostic results - Labs: Hemoglobin A1c at 6.2% - Labs: LDL at 117 mg/dL - Labs: Normal CBC and electrolytes - Liver and kidney functions are within normal limits Patient Instructions - Reduce Glipizide to one tablet in the morning and one at night. - If hypoglycemia symptoms persist, decrease to one pill in the morning, and discontinue if necessary. - Begin Topamax for headaches, taking one at night. - Monitor blood sugar levels and report readings. - Update via patient portal with diabetes management and medication changes. - Schedule follow-up for May. Review of Systems - General: No fever no chills - Neurological: No headaches no dizziness - Ear nose throat: No sore throat no hearing difficulty no ear pain - Cardiovascular: No syncope, no chest pain, no palpitations - Gastrointestinal: No nausea vomiting or diarrhea - Endocrine: No polyuria polydipsia no heat intolerance - Genitourinary: No dysuria - Skin: No new complaints Physical Exam General: Cooperative, healthy appearing, comfortable, no acute distress Orientation: Patient oriented x3 Head: Normal to inspection Ears: Within normal limit visually Nose: Normal external nose present Face and sinus: Normal facial exam Eyes: Appearance normal, extraocular movement intact pupils reactive Neck: Normal visual inspection and supple Respiratory: Normal respiratory effort and able to speak in complete sentences. Clear to auscultation, no stridor Cardiovascular: S1 and S2 RRR Breast exam by OBGYN GI: Normal to inspection. Soft to palpation and nontender Skin: Turgor normal, no acute findings Neuro: Patient oriented x3, motor sensory intact, balance intact, tandem pass Extremities: Normal to inspection, range of motion intact [facility] Medical History Sore throat Upper respiratory tract infection Diabetes mellitus, type 2 Constipation by delayed colonic transit Headache syndrome Encounter to establish care Surgical History History of ovarian cyst Family History Father HTN (hypertension) CVD (cardiovascular disease) Diabetes mellitus HIV (human immunodeficiency virus infection) Hx of CABG Substance use disorder Mother Mental health disorder Brother Substance use disorder Sister No problems noted. Son Neuroblastoma Mental health disorder Paternal Aunt Substance use disorder Paternal Uncle Substance use disorder Social History Housing: House Alcohol intake: never Patient Tobacco Use Status: Never used Tobacco e-Cigarette/Vaping Use: Never Used service: No Current occupational status: employed Cognitive needs: No Hearing needs: No Vision needs: Yes Questionnaire PHQ-9 Over the last 2 weeks, how often have you been bothered by any of the following problems? 1. Little interest or pleasure in doing things: several days 2. Feeling down, depressed, or hopeless: several days 3. Trouble falling or staying asleep, or sleeping too much: nearly every day 4. Feeling tired or having little energy: nearly every day 5. Poor appetite or overeating: several days 6. Feeling bad about yourself - or that you are a failure or have let yourself or your family down: several days 7. Trouble concentrating on things, such as reading the newspaper or watching television: several days 8. Moving or speaking so slowly that other people could have noticed. Or the opposite - being so fidgety or restless that you have been moving around a lot more than usual: not at all 9. Thoughts that you would be better off or of hurting yourself in some way: not at all Total score: 11 Depression Screening Interpretation: Positive Depression Screening Follow-up: Existing condition and In treatment Depression Screening Done: Yes 54642 - PHQ-9 Billing: Yes Source: Developed by Drs. Clifford Parish, Mary Jo Adorno, Martin Santizo and colleagues, with an educational néstor from [employer]. Thrive Questionnaire Date Thrive assessed: 02/21/25 I am a: Patient What is your living situation today?: I have a steady place to live Within the past 12 months, did the food you bought not last and you didn't have the money to get more?: Never true Within the past 12 months, did you worry whether your food would run out before you got money to buy more?: Never true Do you have trouble paying for medicines?: No Do you have trouble getting transportation to medical appointments?: No Do you have trouble paying your heating and electricity bill?: No Do you have trouble taking care of your child, family member or friend?: No Do you have trouble with day-to-day activities such as bathing, preparing meals, shopping, managing finances, etc.?: No Are you currently unemployed and looking for a job?: No Are you interested in more education?: No Please select the resources that you would like help with: None Currently or been in a relationship where the following occur: No concerns reported THRIVE Score: 0 AUDIT C Alcohol Use Questionnaire (AUDIT-C) 1. How often do you have a drink containing alcohol?: Never 3. How often do you have six or more drinks on one occasion?: Never Total Score: 0 Score Reviewed/Action Taken: Yes EDITA-7 AMB Questionnaire EDITA-7 Date EDITA - 7 assessed: 08/26/24 Source: Developed by Drs. Clifford Parish, Mary Jo Adorno, Martin Santizo and colleagues, with an educational néstor from [employer]. Physical exam (Primary Care) Vital Signs: Last Vital Signs Temp 97.9 F 02/21/25 15:34 Pulse 78 02/21/25 15:34 BP 116/80 02/21/25 15:34 Pulse Ox 98 02/21/25 15:34 Oxygen Delivery Method Room Air 02/21/25 15:34 BMI result Body Mass Index 25.4 Tobacco/Smoking Status: Tobacco use Status Tobacco use date assessed 02/21/25 02/21/25 15:41 Patient Tobacco Use Status Never used Tobacco 02/21/25 15:41 e-Cigarette/Vaping Use Never Used 02/21/25 15:41 PHQ-9: PHQ-9 Score PHQ-9: Total score 11 02/21/25 15:41 Depression Screening Interpretation: Positive Depression Screening Follow-up: Existing condition and In treatment Thrive Assessment: Date of Thrive Assessment Date Thrive assessed 02/21/25 02/21/25 15:41 Currently or been in a relationship where the following occur: No concerns reported Coding Level of Care Code Est Pt Level 3 (65923) Est Pt Prev Care 40-64y(41911) Diagnoses Encounter for general adult medical examination with abnormal findings Z00.01 Intractable migraine with aura without status migrainosus G43.119 Intractability: intractable Status migrainosus presence: without status migrainosus Type 2 diabetes mellitus with other specified complication, without long-term current use of insulin E11.69 Diabetes mellitus complication status: with other specified complication Diabetes mellitus assisted insulin use: without assisted use Additional Codes PHQ-9 - 73171 - PHQ-9 Billing: Yes ([id number]) Assessment & Plan Assessment & Plan (1) Encounter for general adult medical examination with abnormal findings: Code(s): Z00.01 - Encounter for general adult medical examination with abnormal findings Category: Medical (2) Migraine headache with aura: Code(s): G43.109 - Migraine with aura, not intractable, without status migrainosus Category: Medical Qualifiers: Intractability: intractable Status migrainosus presence: without status migrainosus Qualified Code(s): G43.119 - Migraine with aura, intractable, without status migrainosus (3) Type 2 diabetes mellitus: Code(s): E11.9 - Type 2 diabetes mellitus without complications Category: Medical Qualifiers: Diabetes mellitus complication status: with other specified complication 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 - Hypoglycemia: The patient reports experiencing low blood sugar levels starting on February 08, with readings going as low as 65 mg/dL. She notices symptoms such as shaking and sweating when her sugar drops into the 60s. - Menopausal Symptoms: The patient experiences severe night sweats, occasional day sweats, difficulty sleeping, and a decreased libido. These symptoms have been impacting her relationship. She attributes some of the sweating to low sugar levels but suspects menopausal changes as the primary cause. She does not want to discontinue the Depo shot due to her history of ovarian cysts and endometriosis. - Headaches: The patient reports severe headaches that worsen with menopause and sugar fluctuations, previously managed with amitriptyline without success. Medical History: - Type 2 Diabetes Mellitus - Endometriosis - History of ovarian cysts - History of hemorrhoids (resolved) Social History: - She mentions a significant relationship with her boyfriend is affected by menopausal symptoms and low libido. Health Maintenance - Mammogram conducted recently with results pending - Depo-Provera injection received last week Medications - Glipizide 2.5 mg as part of diabetes management - Metformin 1 g twice a day for diabetes control - Vitamin D and B12 supplementations Diagnostic results - Labs: Hemoglobin A1c at 6.2% - Labs: LDL at 117 mg/dL - Labs: Normal CBC and electrolytes - Liver and kidney functions are within normal limits Patient Instructions - Reduce Glipizide to one tablet in the morning and one at night. - If hypoglycemia symptoms persist, decrease to one pill in the morning, and discontinue if necessary. - Begin Topamax for headaches, taking one at night. - Monitor blood sugar levels and report readings. - Update via patient portal with diabetes management and medication changes. - Schedule follow-up for May. Orders: Orders Hemoglobin A1c 3 Months E11. - Type 2 diabetes mellitus with other specified complication, G43.119 - Migraine with aura, intractable, without status migrainosus, Z00.01 - Encounter for general adult medical examination with abnormal findings Complete Blood Count Auto Diff 3 Months E11. - Type 2 diabetes mellitus with other specified complication, G43.119 - Migraine with aura, intractable, without status migrainosus, Z00.01 - Encounter for general adult medical examination with abnormal findings Comprehensive [place]. Panel Fast 3 Months E11. - Type 2 diabetes mellitus with other specified complication, G43.119 - Migraine with aura, intractable, without status migrainosus, Z00.01 - Encounter for general adult medical examination with abnormal findings Lipid Panel 3 Months E11. - Type 2 diabetes mellitus with other specified complication, G43.119 - Migraine with aura, intractable, without status migrainosus, Z00.01 - Encounter for general adult medical examination with abnormal findings Vitamin D 25-OH (D2 and D3) 3 Months E11.69 - Type 2 diabetes mellitus with other specified complication, G43.119 - Migraine with aura, intractable, without status migrainosus, Z00.01 - Encounter for general adult medical examination with abnormal findings Vitamin B12 3 Months E11.69 - Type 2 diabetes mellitus with other specified complication, G43.119 - Migraine with aura, intractable, without status migrainosus, Z00.01 - Encounter for general adult medical examination with abnormal findings Microalbumin, Random (w Creat) 3 Months E11.69 - Type 2 diabetes mellitus with other specified complication, G43.119 - Migraine with aura, intractable, without status migrainosus, Z00.01 - Encounter for general adult medical examination with abnormal findings Medications: New topiramate (Topamax) 25 mg PO BEDTIME 90 tabs 0RF 90 days
--- OUTSIDE RECORDS SUMMARY | 2025-02-21 15:57 | XMS_ITS | Clinical Summary ---
Author Organization [facility] [address] [facility] lding Address [address] [facility] [place] [address] Phone Care Team Providers Care Coil Wrapper Name Role Phone Adam Hernandez MD Primary Care Provider [phone] Allergies Active Allergy Reactions Criticality Noted Date [...] (three) months. 1 mL 2 5 Active Hospital, Clinic, or Other Facility Administered Medication Ordered Dose Route Frequency Start Date End Date Status medroxyPROGESTERone (DEPO-PROVERA) injection 150 mgIndications:Depo-Provera contraceptive status 150 mg IM Once 02/15/2025 02/15/2025 Ende d Active Problems Problem Noted Date Diagnosed Date Diabetes mellitus ([facility] V24, [facility] V28) Abnormal mammogram 10/06/2019 Overview (06/01/2024): 09/2019 Mammogram IMPRESSION: Persistent asymmetry on diagnostic mammograms. Subsequent ultrasound performed revealing no suspicious abnormality. Finding is likely benign. Recommend follow-up unilateral right breast mammography in 6 months to document stability. 12/2022 persistent left breast asymmetry- 2 6 mm inferiorly in the left breast , unchanged, cont q 6 mo follow up Encounters Date Type Department Care Team Description 02/15/2025 2:30 PM EDT Clinical Support Obstetrics and Gynecology [address] [address] Hot flashes (Primary Dx); Depo-Provera contraceptive status 02/07/2025 Telephone Obstetrics and Gynecology - [place] [address] [place] [address] Kinza Mederos [place] 02/02/2025 1:27 PM EDT - 02/02/2025 11:59 PM EDT [facility] [address] [phone] Encounter for screening mammogram for breast cancer Discharge Disposition: Home or Self Care 11/23/2024 4:00 PM EDT Clinical Support Obstetrics and Gynecology - [place] [address] [place] [id number] Encounter for management and injection of depo-Provera (Primary Dx) from Last 3 Months Surgical History Surgery Date Site/Laterality Comments OVARIAN CYST REMOVAL 2015 PROCEDURE: NE OVARIAN CYSTECTOMY UNI/BI OTHER SURGICAL HISTORY 2019 [...] Sexual Orientation Not on file Obstetrics History Para Term AB IAB SAB Ectopic Multiple Livin g Live Births 1 Last Filed Vital Signs Vital Sign Reading Time Taken Comments Blood Pressure 127/84 02/15/2025 2:44 PM EDT Pulse 88 11/23/2024 4:19 PM EDT Temperature 36.1 C (97 F) 08/30/2024 4:03 PM EST Respiratory Rate 14 11/23/2024 4:19 PM EDT Oxygen Saturation - - Inhaled Oxygen Concentration - - Weight 62.1 kg (137 lb) 02/15/2025 2:44 PM EDT Height 157.5 cm (5' 2 ) 02/02/2025 1:39 PM EDT Body Mass Index 25.06 02/02/2025 1:39 PM EDT Plan of Treatment Upcoming Encounters Date Type Department Care Team (Late st Contact Info) Description 05/15/2025 11:00 AM EDT Clinical Support Obstetrics and Gynecology [address] [phone] Health Maintenance Due Date Last Done Comments Diabetes: Annual GFR (Glomerular Filtration Rate) 1981 Diabetes: Annual Foot Exam 1991 Diabetes: Annual Retina Eye Exam 1991 Hepatitis B Vaccines (1 of 3 - 19+ 3-dose series) 02/24/2000 Pneumococcal Vaccine: Pediatrics (0 to 5 Years) and At-Risk Patients (6 to 49 Years) (1 of 2 - PCV) 02/24/2000 Cholesterol Screening (Lipid Panel) 07/20/2022 Depression Screening 07/20/2022 Social Influencers of Health Screening 07/20/2022 Diabetes: Annual Urine Albumin-Creatinine Ratio (uACR) 07/30/2022 Diabetes: Blood Sugar Control Test (HGBA1C) 07/30/2022 COVID-19 Vaccine ( season) 2024 12/08/2020, 11/10/2020 Influenza Vaccine (#1) 2025 Breast Cancer Screening 02/02/2027 02/03/20, 12/17/2022, 12/03/2021, Additional history exists Cervical Cancer Screening: HPV 01/09/2028 01/08/2023 DTaP,Tdap,and Td Vaccines (2 - Td or Tdap) 12/06/2034 12/06/2024 HIV Screening Completed 10/07/2021 Hepatitis C Screening [...] 20 months Aged Out No longer eligible based on patient's age to complete this topic Varicella Vaccines Aged Out No longer eligible based on patient's age to complete this topic Procedures Procedure Name Priority Date/Time Associated Diagnosis Comments MG MAMMO DIGITAL SCREENING W PIPE BILAT Routine 02/02/2025 1:47 PM EDT Encounter for screening mammogram for breast cancer HPV Routine 01/08/2023 HEPATITIS C SCREENING Routine 10/07/2021 HIV SCREENING Routine 10/07/2021 from Last 3 Months or Most Recently Relevant to Health Maintenance Results * MG Mammo Digital Screening w Pipe bilat (02/02/2025 1:47 PM EDT) Anatomical Region Laterality Modality Breast Bilateral Mammography 02/02/2025 3:48 PM EDT Impressions 02/02/2025 3:59 PM EDT No mammographic evidence of malignancy. No suspicious interval change. A negative mammogram in the presence of a clinically suspicious palpable abnormality does not preclude the possibility of malignancy or alter the indications for biopsy. ASSESSMENT: BI-RADS 2: BENIGN RECOMMENDATION(S): 1: Routine screening mammogram BILATERAL in 1 year. [facility] [address], [address] -------- FINAL REPORT -------- Dictated By: Sher Zuluaga Dictated Date: 02/02/2025 15:48 ET Assigned Physician: Sher Zuluaga Reviewed and Electronically Signed By: Sher Zuluaga Signed Date: 02/02/2025 15:59 ET Workstation ID: [id number] Transcribed By: Self Edit Transcribed Date: 02/02/2025 15:48 ET Narrative 02/02/2025 3:59 PM EDT EXAM: SCREENING MAMMOGRAPHY, BILATERAL HISTORY: SCREENING. Family history of breast cancer, aunt, grandparent COMPARISON: 06/26/23, 12/23/22, 12/17/22, 12/03/21, 10/05/20 TECHNIQUE: Synthesized CC and MLO projections of each breast. Tomosynthesis of each breast in the CC and MLO projections. 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 TISSUE DENSITY: There are scattered areas of fibroglandular density. (BI-RADS category B) FINDINGS: RIGHT BREAST: No suspicious mass. No suspicious calcification. No distortion. 0.7 cm low density asymmetry 9 cm behind the nipple in the MLO projection is unchanged since at least 10/03/19. No new suspicious right breast finding. LEFT BREAST: No suspicious mass. No suspicious calcification. No distortion. No additional suspicious left breast findings Procedure Note Sher Zuluaga MD - 02/02/2025 EXAM: SCREENING MAMMOGRAPHY, BILATERAL HISTORY: SCREENING. Family history of breast cancer, aunt, grandparent COMPARISON: 06/26/23, 12/23/22, 12/17/22, 12/03/21, 10/05/20 TECHNIQUE: Synthesized CC and MLO projections of each breast.Tomosynthesis of each breast in the CC and MLO projections. 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 TISSUE DENSITY: There are scattered areas of fibroglandular density.(BI-RADS category B) FINDINGS: RIGHT BREAST: No suspicious mass. No suspicious calcification. No distortion. 0.7 cmlow density asymmetry 9 cm behind the nipple in the MLO projection isunchanged since at least 10/03/19. No new suspicious right breast finding. LEFT BREAST: No suspicious mass. No suspicious calcification. No distortion. Noadditional suspicious left breast findings IMPRESSION: No mammographic evidence of malignancy. No suspicious interval change. A negative mammogram in the presence of a clinically suspicious palpableabnormality does not preclude the possibility of malignancy or alter theindications for biopsy. ASSESSMENT: BI-RADS 2: BENIGN RECOMMENDATION(S): 1: Routine screening mammogram BILATERAL in 1 year. [facility] [address] [place], [address] -------- FINAL REPORT -------- Dictated By: Sher Zuluaga Dictated Date: 02/02/2025 15:48 ET Assigned Physician: Sher Zuluaga Reviewed and Electronically Signed By: Sher Zuluaga Signed Date: 02/02/2025 15:59 ET Workstation ID: [id number] Transcribed By: Self Edit Transcribed Date: 02/02/2025 15:48 ET us Self Referral Sppl IMG BI PROCEDURES Final Resul t * Cervical Cancer Screening: HPV (01/08/2023) [facility] Cervical Cancer Screening: HPV Negative, Abstracted Historical Provider HEALTH MAINTENANCE Final Result * HIV Screening (10/07/2021) [facility] HIV Screening Abstracted Historical Provider HEALTH MAINTENANCE Final Result * Hepatitis C Screening (10/07/2021) [facility] Hepatitis C Screening Abstracted Historical Provider HEALTH MAINTENANCE Final Result from Last 3 Months or Most Recently Relevant [place] [id number] [facility] [place] [address] Care Teams Coil Wrapper Relationship Specialty Start Date End Date Adam Hernandez MD [address] [place] [address] [place]O Berger [phone] PCP - General Internal Medicine 02/02/25
--- OUTSIDE RECORDS SUMMARY | 2025-02-21 15:58 | XMS_ITS | Data Portability ---
Author Organization [place] [facility], Allergy Address [address] [place] [address] Care Team Providers Care Seam Rubber Name Role Phone PIERREHELEN Primary Care Provider [...] Missed: Dose Aware of Vial Test Notes: Not available 12/28/2024 16:59:31 01/04/2025 01/04/2025 Visit [...] Dose Aware of Vial Test Aware: Notes: Not available 01/25/2025 17:22:30 02/09/2025 02/09/2025 Visit [...] Address Organization Details Recorded Time Acute sinusitis 68086599 Active 2021 Other acute sinusitis ; Note: Date Diagnosed : 04/11/2022 4:55 PM (J01.80) Not Available [facility] 4 03:18:19 Allergic rhinitis 97007489 Active 2023 Allergic rhinitis: Due to other [...] Date : 3 Not Available [facility] 4 01:25:08 Bilateral disorder of Eustachia n tubes [id number] 18094 Active 2020 Other specified disorders of Eustachia n tube, bilateral ; Note: Date Diagnosed : 1 11:11 AM (H69.83) Not Available [facility] 4 03:18:18 Recurrent acute sinusitis 189395074 Active 2021 Other acute recurrent sinusitis ; Note: Date Diagnosed : 2 5:29 PM (J01.81) Not Available [facility] 4 03:18:19 Pain of right temporoma ndibular joint 74537796251 322852 Active 2020 Arthralgi a of right temporoma ndibular joint; Note: Date Diagnosed : 1 11:48 AM (M26.621) Not Available [facility] 4 03:18:19 Allergic rhinitis caused by pollen 02250107 Active 2022 Allergic rhinitis due to pollen; Note: Date Diagnosed : 09/26/2022 4:51 PM (J30.1) Not Available [facility] 4 03:18:19 Perennial allergic rhinitis 507281691 Active 2023 KATHERINE CHENG [address] [facility] [address] [address], [place], [address] , [facility] - [facility] [place] 4 17:05:30 Acute maxillary sinusitis 13395548 Active 2023 GEO CASTILLO MD [address] [place], [place] [address], [place], [address] , [facility] - [facility] [place] 4 16:53:35 Chronic sinusitis 78342839 Active 2023 GEO CASTILLO MD [address] [place], [place] [address],[place] [address], [place], [address] , [facility] - [facility] [place] 4 15:10:31 Nasal congestio n 92792789 Active 2023 GERALDINE FARRAR MD [address] [place] [address],[place] [address], [place], [address] , [facility] - [facility] [place] 4 10:22:29 Atypical facial pain 78459584 Active 2023 GERALDINE FARRAR MD [address] [place] [address],[place] [address], [place], [address] , [facility] - [facility] [place] 4 21:56:24 Seasonal allergic rhinitis 704143469 Active 2023 GEO CASTILLO MD [address] [place], [place] [address],[place] [address], [place], [address] , [facility] - [facility] [place] 4 07:59:00 Anterior epistaxis 223490352 Active 2024 GERALDINE FARRAR MD [address] [place], [place] [address],[place] [address], [place], [address] , [facility] - [facility] [place] 5 09:42:15 Problem Notes None recorded. Procedures Surgical History Date Name Laterality Status Provider Name and Address Organization Details Recorded Time 02/10/20 Allergy Immunotherapy Injections completed KATHERINE CHENG [address] [facility] [address], [place], [address], [place] [facility] [place] 02/09/2025 13:37:57 01/26/20 25 Allergy Immunotherapy Injections completed CHETNA CRAVENA [address], [address], [place] [facility] [place] 01/25/2025 17:22:20 01/12/20 25 Allergy Immunotherapy Injections completed ABHIJEET DANIELS, RMA [address], [place], [address], [place] [facility] [place] 01/11/2025 16:28:14 01/05/20 25 Allergy Immunotherapy Injections completed ABHIJEET DIMASC RMA [address], [place], [address], [place] [facility] [place] 01/04/2025 17:27:15 12/29/19 25 Allergy Immunotherapy Injections completed THUY PEDROZA RMA [address], [address], [place] [facility] [place] 12/28/2024 16:57:02 12/22/19 25 Allergy Immunotherapy Injections completed ABHIJEET DANIELS RMA [address], [place], [address], [place] [facility] [place] 12/21/2024 16:11:27 12/07/19 25 Allergy Immunotherapy Injections completed THUY PEDROZA RMA [address], [address], [place] [facility] [place] 12/06/2024 12:10:36 11/24/19 25 Allergy Immunotherapy Injections completed ABHIJEET DANIELS RMA [address], [place], [address], [place] [facility] [place] 11/23/2024 16:51:46 11/17/19 25 Allergy Immunotherapy Injections completed THUY PEDROZA RMA [address], [address], [place] [facility] [place] 11/16/2024 17:21:42 11/02/19 25 Allergy Immunotherapy Injections completed ABHIJEET DIMASC, RMA [address], [place], [address], [place] [facility] [place] 11/01/2024 11:59:08 10/12/19 25 Allergy Immunotherapy Injections completed ELIAS LAL RN [address], [place], [address], [place] [facility] [place] 10/12/2024 17:39:46 10/07/19 25 Allergy Immunotherapy Injections completed ELIAS LAL RN [address], [place], [address], [place] [facility] [place] 10/07/2024 11:24:17 09/28/19 25 Allergy Immunotherapy Injections completed ELIAS LAL RN [address], [address], [place] [facility] [place] 09/28/2024 17:15:28 09/21/19 25 Allergy Immunotherapy Injections completed KATHERINE CRAVEN [address] [facility], [place], [address], [place] [facility] [place] 09/21/2024 17:29:47 06/23/20 24 Allergy Immunotherapy Injections completed CHETNA CRAVENA [address] [facility], [place], [address], [place] [facility] [place] 06/23/2024 16:33:26 06/01/20 24 Allergy Immunotherapy Injections completed ABHIJEET DANIELS RMA [address], [address], [place] [facility] [place] 06/01/2024 11:14:57 05/11/20 24 Allergy Immunotherapy Injections completed ABHIJEET DANIELS RMA [address], [place], [address], [place] [facility] [place] 05/11/2024 17:20:23 04/21/20 24 Allergy Immunotherapy Injections completed CHETNA CRAVENA [address], [address], [place] [facility] [place] 04/21/2024 16:20:17 04/13/20 24 Allergy Immunotherapy Injections completed ABHIJEET DANIELS RMA [address], [place], [address], [facility] - [facility] 04/13/2024 16:57:24 04/07/20 24 Allergy Immunotherapy Injections completed CHETNA CRAVEN 100 [facility],[address], [address], [facility] - [facility] 04/07/2024 16:25:04 03/02/20 24 Allergy Immunotherapy Injections completed ABHIJEET DANIELS [facility] 100 [facility],[address], [address], [facility] - [facility] 03/02/2024 14:30:05 02/25/20 24 Allergy Immunotherapy Injections completed ELIAS LAL RN 100 [facility],[address], [address], [facility] - [facility] 02/25/2024 15:26:18 01/19/20 24 Allergy Immunotherapy Injections completed THUY PEDROZA Bony [address] [place] [address],[address], [address], [facility] - [facility] 01/19/2024 15:42:11 12/30/19 24 Allergy Immunotherapy Injections completed ABHIJEET AGUEDALUIZ[address], [address], [facility] - [facility] 12/30/2023 17:05:54 Imaging Results None recorded. [...] mg capsule 05/30 completed Medicati on ID: [id number] D uration Value: 14 Brand Name: doxycycl [...] mg tablet 04/25 completed Medicati on ID: [id number] B rand Name: escitalo pram oxalate Send Method: E-Prescr ibed Sub s Allowed: subs OK Medic ationGen ericName : escitalo pram oxalate Not Available Not Available Not Available azelastin e 137 mcg-fluti casone 50 mcg/spray nasal spray [place] 2 sprays twice a day by intranas al route. 2023 active Not Available Not Available Not Avai lable Robertoleazeem 17.5 mcg/24 hr (up to 5 years) 19.5 mg intrauter ine device 04/25 completed Medicati on ID: [id number] B rand Name: Clive Send Method: E-Prescr [...] Diagnosis Note 434 ELIAS LAL RN Allergy [address] [place] [address] 100 [place] [address] 12/30/2023 17:04:11 01/01/2024 15:55:03 Perennial allergic rhinitis 451091199 J30.89 2758 THUY PEDROZA [facility] Allergy [address] [place] [address] it 100 [place] [address] 01/19/2024 15:40:29 01/19/2024 16:16:57 Perennial allergic rhinitis 986475123 J30.89 7533 THUY PEDROZA [facility] Allergy [address] [place] [address] it [address] [place] [address] 02/25/2024 14:05:43 02/25/2024 15:27:47 Perennial allergic rhinitis 632145341 J30.89 8313 ABHIJEET DIMAS [facility] Allergy [address] [place] [address] ite 100 [place] [address] 03/02/2024 14:21:39 03/02/2024 14:30:52 Perennial allergic rhinitis 075403545 J30.89 01746 THUY PEDROZA [facility] Allergy [address] [place] [address] it [address] [place] [address] 04/07/2024 15:37:38 04/08/2024 10:54:39 Perennial allergic rhinitis 792465842 J30.89 54361 ABHIJEET DANIELS [facility] Allergy [address] [place] [address] [place] [address] 04/13/2024 16:47:55 04/13/2024 17:01:37 Perennial allergic rhinitis 915109016 J30.89 97255 ELIAS LAL RN Allergy [address] [place], [place] [address] [address] 04/21/2024 15:56:33 04/22/2024 10:43:15 Perennial allergic rhinitis 569534697 J30.89 05352 GEO CASTILLO MD [facility] [address] [address] 04/26/2024 15:57:38 04/26/2024 16:59:19 Acute maxillary sinusitis 15344543 J01.00 she has acute sinusitis based on history. I will treat empiricall y with abx and prednisone . she will discuss with her PCP given her DM before starting prednisone . I discussed the risk of elevated blood sugars and avascular hip necrosis. Perennial allergic rhinitis 433054345 J30.89 The patient is benefiting from immunother apy and should continue. No local or systemic reactions. 01290 ABHIJEET DIMAS [facility] All[facility] [address] [place] [address] [place] [address] 05/11/2024 17:18:22 05/11/2024 17:23:23 Perennial allergic rhinitis 318612956 J30.89 26497 GERALDINE FARRAR MD [facility] [address] [address] 06/01/2024 09:06:05 06/01/2024 10:25:38 Allergic rhinitis 96747012 J30.9 Nasal congestion 8272505 0 R09.81 Atypical facial pain 713 53028 G50.1 14118 ABHIJEET DANIELS [facility] All[facility] [address] [place] [address] [place] [address] 06/01/2024 11:13:32 06/01/2024 11:16:08 Perennial allergic rhinitis 137870942 J30.89 63221 THUY PEDROZA [facility] All[facility] [address] [place] [address] 100 [place] [address] 06/23/2024 16:31:52 06/24/2024 11:32:20 Perennial allergic rhinitis 800819279 J30.89 45959 GEO CASTILLO MD [facility] [place] [address] [place] [address] 07/08/2024 07:55:18 07/08/2024 12:38:42 Seasonal allergic rhinitis 381575425 J30.2 I suggested she try azelastine which I sent to her pharmacy. If she does not improve we could consider repeating allergy testing. 50616 GERALDINE FARRAR MD [facility] [address] [address] 09/13/2024 08:27:19 09/13/2024 09:09:33 Atypical facial pain 48640408 G50.1 Anterior epistaxis 53861 4002 R04.0 Nasal congestion 0236955 0 R09.81 57406 THUY PEDROZA [facility] Allergy [address] [place] [address] 09/21/2024 17:00:55 09/21/2024 17:30:24 Perennial allergic rhinitis 515073911 J30.89 23254 THUY PEDROZA [facility] All[facility] [address] [place] [address] 09/28/2024 17:10:30 09/28/2024 17:16:06 Perennial allergic rhinitis 821977582 J30.89 31024 THUY PEDROZA [facility] All[facility] [address] [place] [address] 10/07/2024 10:34:03 10/07/2024 11:24:52 Perennial allergic rhinitis 540519230 J30.89 00266 ELIAS LAL RN Allergy [address] [place] [address] 100 [place] [address] 10/12/2024 17:24:01 10/12/2024 17:40:04 Perennial allergic rhinitis 110859811 J30.89 88124 [facility], RMA Allergy [address] [facility] [address],[place] [address] [place] [address] 11/01/2024 11:23:02 11/01/2024 11:26:18 Perennial allergic rhinitis 277048011 J30.89 62253 THUY PEDROZA RMA Allergy [address] [facility] [address],[place] [address] [place] [address] 11/16/2024 16:29:40 11/17/2024 15:30:44 Perennial allergic rhinitis 877402980 J30.89 83639 [facility], RMA Allergy [address] [facility] [address],[place] [address] [place] [address] 11/23/2024 16:30:51 11/23/2024 16:52:17 Perennial allergic rhinitis 104910770 J30.89 70205 THUY PEDROZA A Allergy 100 [facility],[place] [address] [place] [address] 12/06/2024 11:15:57 12/06/2024 12:11:00 Perennial allergic rhinitis 928258255 J30.89 57009 THUY PEDROZA A Allergy 100 [facility],[place] [address] [place] [address] 12/21/2024 15:58:11 12/21/2024 16:12:00 Perennial allergic rhinitis 468351988 J30.89 36432 THUY PEDROZA A Allergy 100 [facility],[place] [address] [place] [address] 12/28/2024 16:28:45 12/28/2024 17:00:22 Perennial allergic rhinitis 680918962 J30.89 29664 [facility], RMA Allergy [address] [facility] [address],[place] [address] [place] [address] 01/04/2025 16:19:57 01/04/2025 17:27:46 Perennial allergic rhinitis 048721323 J30.89 91516 [facility], RMA Allergy [address] [facility] [address],[place] [address] [place] [address] 01/11/2025 16:23:04 01/11/2025 16:28:34 Perennial allergic rhinitis 034724798 J30.89 07884 ABHIJEET DIMAS, RMA Allergy 100 [facility],[place] [address] [place] [address] 01/25/2025 17:21:31 01/25/2025 17:23:02 Perennial allergic rhinitis 243150101 J30.89 79643 ABHIJEET DIMAS, RMA Allergy 100 [facility],[place] [address] [place] [address] 02/09/2025 13:08:29 02/09/2025 13:38:59 Perennial allergic rhinitis 414744726 J30.89 Health Concerns Section Related Observation LastModified by Organization Detai ls LastModified Time None Recorded Concern Status LastModified by Organization Details LastModified Time None Recorded Advance Directives Directive None Recorded Payers Insurance Date Sequence Insurance Name Policy Number Policy Ruby Covered Member ID Ruby Member ID Guarantor Name 09/13/2024 1 [facility] (MEDICAID HMO) [id number] Fozia Pedroza [id number] Fozia Pedroza 02/09/2025 1 [facility] (HMO) [id number] Fozia Pedroza [id number] Fozia Pedroza OBGyn Episode No OBEpisode recorded.
== END 2025-02-21 15:55 | disposition home or self-care (01) ==
LOC: HO.HMCC 15:31
PROVIDERS: PCP Internal Medicine; Visit Provider Internal Medicine
DX: Z00.01 Encounter for general adult medical examination with abnormal findings (principal); G43.119 Migraine with aura, intractable, without status migrainosus; E11.69 Type 2 diabetes mellitus with other specified complication

== ENCOUNTER → 2025-02-21 15:30 | Outpatient (BNVA) | payer OTHER, SELFPAY | PROVIDERS: PCP Internal Medicine; Visit Provider Internal Medicine | DX: Z00.01 Encounter for general adult medical examination with abnormal findings (principal); G43.119 Migraine with aura, intractable, without status migrainosus; E11.649 Type 2 diabetes mellitus with hypoglycemia without coma; N80.9 Endometriosis, unspecified; Z79.84 Long term (current) use of oral hypoglycemic drugs; Z13.31 Encounter for screening for depression | CPT/HCPCS: 96127; 99212; 99396 ==

== ENCOUNTER 2025-03-09 08:17 | Outpatient (AMB) | payer OTHER, SELFPAY ==
--- OUTSIDE RECORDS SUMMARY | 2025-03-09 08:28 | XMS_ITS | Clinical Summary ---
Author Organization [facility] Address [address] [place] [address] Phone Care Team Providers Care Flitch Hanger Name Role Phone Kezia Adkins MD Primary Care Provid er Allergies Active Allergy Reactions Criticality Noted Date Comments Shellfish Containing Products 2019 Medications No known medications Social History Tobacco Use Types Packs/Day Years Used Date Smoking Tobacco: Never Smokeless Tobacco: Never Education Answer Date Recorded Are you interested in more education? Not on bladimir e 12/12/2022 Are you concerned about learning? Not on file 12/12/2022 No 12/12/2022 No 12/12/2022 Digital Access Answer Date Recorded No 01/10/2023 No 01/10/2023 No 01/10/2023 Reliable internet access at home? Not on file 01/10/2023 Device with a working camera? Not on file Comments Unknown Sex and Gender Information Value Date Recorded Sex Assigned at Not on file Legal Sex Female 12:18 PM EST Gender Identity Not on file Sexual Orientation Not on file Last Filed Vital Signs Vital Sign Reading Time Taken Comments Blood Pressure 114/74 09/08/2019 12:29 PM EST Pulse 68 09/08/2019 12:29 PM EST Temperature 36.8 C (98.2 F) 09/08/2019 12:29 PM EST Respiratory Rate 16 09/08/2019 12:43 PM EST Oxygen Saturation 100% 09/08/2019 12:29 PM EST Inhaled Oxygen Concentration - - Weight - - Height 157.5 cm (5' 2 ) 09/08/2019 12:29 PM EST Body Mass Index - - Plan of Treatment Health Maintenance Due Date Last Done Comments Adult Td,Tdap Booster 1981 DEPRESSION SCREENING 1993 HEPATITIS C SCREENING 1999 HIV ONE-TIME SCREENING (18-6 5 YEARS) 1999 PAP SMEAR 2002 MAMMOGRAM 2021 COVID-19 VACCINE (2023-2 5 season) 2024 12/08/2020, 11/10/2020 SMOKING STATUS SCREENING (On ce After 26 Yrs) Completed 09/08/2019 HEPATITIS A VACCINES Aged Out No long er eligible based on patient's age to complete this topic HIB VACCINES Aged Out No longer eligi ble based on patient's age to complete this topic MENINGOCOCCAL VACCINES (ACWY) Aged Out No longer eligible based on patient's age to complete this topic MENINGOCOCCAL VACCINES (B) Aged Out N o longer eligible based on patient's age to complete this topic PNEUMOCOCCAL VACCINES (0-49 years) Aged Out No longer eligible b ased on patient's age to complete this topic Medical Devices Not on file Insurance [facility] NON NSPG PCP [facility] [place] [address] [facility] NON NSPG PCP [facility] NON NSPG PCP [facility] NON NSPG PCP S[facility] NON NSPG PCP [facility] NON NSPG PCP [facility] NON NSPG PCP [facility] NON NSPG PCP S[facility] NON NSPG PCP [facility] [place] [address] Care Teams Flitch Hanger Relationship Specialty Start Date End Date Kezia Adkins MD [address] [place] [address] PCP - General Internal Medicine 09/08/19 Additional Source Comments The information contained in this document represents components of the legal health record. It is not the complete legal health record.[facility]
--- OUTSIDE RECORDS SUMMARY | 2025-03-09 08:28 | XMS_ITS | Clinical Summary ---
Author Organization [facility] [address] [facility] lding Address [address] [facility] [place] [address] Phone Care Team Providers Care Night Time Babysitter Name Role Phone Adam Hernandez MD Primary Care Provider [phone] Allergies Active Allergy Reactions Criticality Noted Date [...] Problem Noted Date Diagnosed Date Diabetes mellitus ([facility] V24, [facility] V28) Abnormal mammogram 10/06/2019 Overview [...] PM EDT Clinical Support Obstetrics and Gynecology [address] [address] Hot flashes (Primary Dx); Depo-Provera contraceptive status 02/07/2025 Telephone Obstetrics and Gynecology - [place] [address] [place] [address] Kinza Mederos MA 02/02/2025 1:27 PM EDT - 02/02/2025 11:59 PM EDT Hospital [facility] at [address] [address] Encounter for screening mammogram for breast cancer Discharge Disposition: Home or Self Care from Last 3 Months Surgical History Surgery Date Site/Laterality Comments OVARIAN CYST REMOVAL 2015 PROCEDURE: [place] OVARIAN CYSTECTOMY UNI/BI OTHER SURGICAL HISTORY 2019 [...] AM EDT Clinical Support Obstetrics and Gynecology [address] [address] Health Maintenance Due Date Last Done Comments Diabetes: Annual GFR (Glomerular Filtration Rate) 1981 Diabetes: Annual Foot Exam 1991 Diabetes: Annual Retina Eye Exam 1991 Hepatitis B Vaccines (1 of 3 - 19+ 3-dose series) 02/24/2000 Pneumococcal Vaccine: Pediatrics (0 to 5 Years) and At-Risk Patients (6 to 49 Years) (1 of 2 - PCV) 02/24/2000 Cholesterol Screening (Lipid Panel) 07/20/2022 Social Influencers of Health Screening 07/20/2022 Diabetes: Annual Urine Albumin-Creatinine Ratio (uACR) 07/30/2022 Diabetes: Blood Sugar Control Test (HGBA1C) 07/30/2022 COVID-19 Vaccine ( season) 2024 12/08/2020, 11/10/2020 Depression Screening 08/17/2024 Influenza Vaccine (#1) 2025 Breast Cancer Screening [...] year. [facility]amm[facility] location[facility] at [address], [address] -------- FINAL REPORT -------- Dictated By: Sher Zuluaga Dictated Date: 02/02/2025 15:48 ET Assigned Physician: Sher Zuluaga Reviewed and Electronically Signed By: Sher Zuluaga Signed Date: 02/02/2025 15:59 ET Workstation ID: [id number] Transcribed By: Self Edit Transcribed Date: 02/02/2025 15:48 ET Narrative 02/02/2025 3:59 PM EDT EXAM: SCREENING MAMMOGRAPHY, BILATERAL HISTORY: SCREENING. Family history of breast cancer, aunt, grandparent COMPARISON: 06/26/23, 12/23/22, 12/17/22, 12/03/21, 10/05/20 TECHNIQUE: Synthesized CC and MLO projections of each breast. Tomosynthesis of each breast in the CC and MLO projections. ADDITIONAL IMAGING: None Computer-aided detection was employed with the [employer] AI 3-D. TISSUE DENSITY: There are scattered [...] None Computer-aided detection was employed with the [employer] AI 3-D. TISSUE DENSITY: There are scattered [...] year. Mammography location: [facility] at [address], [address] -------- FINAL REPORT -------- Dictated By: Sher Zuluaga Dictated Date: 02/02/2025 15:48 ET Assigned Physician: Sher Zuluaga Reviewed and Electronically Signed By: Sher Zuluaga Signed Date: 02/02/2025 15:59 ET Workstation ID: [id number] Transcribed By: Self Edit Transcribed Date: 02/02/2025 15:48 ET us Self Referral Sppl IMG BI PROCEDURES Final Resul t * Cervical Cancer Screening: HPV (01/08/2023) [facility] Cervical Cancer Screening: HPV Negative, Abstracted Historical Provider HEALTH MAINTENANCE Final Result * HIV Screening (10/07/2021) [facility] HIV Screening Abstracted Historical Provider HEALTH MAINTENANCE Final Result * Hepatitis C Screening (10/07/2021) [facility] Hepatitis C Screening Abstracted Historical Provider HEALTH MAINTENANCE Final Result from Last 3 Months or Most Recently Relevant to [place] [id number] [facility] Care Teams Night Time Babysitter Relationship Specialty Start Date End Date Adam Hernandez MD [address] [place] [phone] PCP - General Internal Medicine 02/02/25
--- NOTE | 2025-03-09 09:24 | A.OFFPC_ITS ---
Intake Visit Reasons: follow up Allergies shellfish derived (SHELLFISH DERIVED) Allergy (Intermediate, Verified 02/21/25 15:39) HIVES Seasonal Allergies Allergy (Mild, Verified 02/21/25 15:39) Sneezing Shellfish Allergy (Unknown, Uncoded 12/06/24 09:29) HIVES Medication List - Last Reconciled 03/09/25 by Adam Hernandez MD azelastine-fluticasone 137-50 mcg/spray 2 sprays intranasal BID cholecalciferol (vitamin D3) 25 mcg PO DAILY 90 days cyanocobalamin (vitamin B-12) 1,000 mcg PO DAILY 90 days epinephrine IM glipizide orally 2 times a day; 2 tabs at night and one in am 90 days hydrocortisone 2.5% 1 appl topical BID PRN 30 days metformin 1,000 mg PO BID 90 days sumatriptan succinate 50 mg PO ONCE PRN 30 days topiramate (Topamax) 25 mg PO BEDTIME 90 days triamcinolone acetonide 0.1% 1 appl topical DAILY 30 days Tobacco use date assessed: 02/21/25 Dental Screening Dental Screen Date: 01/18/25 HPI follow up HPI Details History - The patient is a 45-year-old female pr esenting with concerns regarding persistent headaches and elevated fasting blood sugar levels. - The patient reported experiencing dot re headaches which worsened with the use of Topamax. The headaches have decreased in intensity since discontinuing the medication but still persist at a less severe level than previously experienced. Prior to the use of Topamax, the patient was taking Amitriptyline which had been effective until recently. - The patient reports issues with elevat ed fasting blood glucose levels, which remain high despite efforts to manage it. The reported fasting blood sugar levels were noted at 170 mg/dL and 150 mg/dL. - The patient recounted one instance of hypoglycemia with a blood sugar level dropping to 44 mg/dL at 7:00 PM on a Thursday evening, believed to have been triggered by physical activity. Medical History: - Migraine headache treated previously w ith Amitriptyline. - Type 2 Diabetes Mellitus with current issues in maintaining normal blood glucose levels. - Past medication use includes Topamax, recently discontinued due to worsening headache symptoms. Medications: - Discontinued Topamax due to adverse ef fects of increasing headache severity. - Taking oral medication for Type 2 Diab etes, dosing regimen: one tablet in the morning and one at night (2.5 mg each). Social History: - The patient indicates lifestyle modifi cations have been attempted to manage blood glucose levels, including dietary changes. - Lack of sleep is noted as a potential contributing factor to headaches. Diagnostic Results: - Labs: Fasting blood glucose levels rec orded at 170 mg/dL and 150 mg/dL. - Labs: Notable hypoglycemic event with blood sugar dropping to 44 mg/dL. Problem List - Migraine Headache - Type 2 Diabetes Mellitus Patient Instructions - Continue taking the prescribed oral di abetes medication (2.5 mg) one tablet in the morning and one at night. - Start Amitriptyline 25 mg as directed: begin with half a tablet and adjust to a full tablet if needed. - Monitor for hypoglycemic episodes and keep a piece of candy accessible for rapid glucose raising. - Make note of any triggers or patterns in blood glucose variations and report during the next follow-up. - Maintain current lifestyle modificatio ns and monitor impact on blood sugar levels. Review of Systems - General: No fever no chills - Neurological: No headaches no dizziness - Ear nose throat: No sore throat no hearing difficulty no ear pain - Cardiovascular: No syncope, no chest pain, no palpitations - Gastrointestinal: No nausea vomiting or diarrhea - Endocrine: No polyuria polydipsia no heat intolerance - Genitourinary: No dysuria , no blood in urine [facility] Medical History Sore throat Upper respiratory tract infection Diabetes mellitus, type 2 Constipation by delayed colonic transit Headache syndrome Encounter to establish care Surgical History History of ovarian cyst Family History Father HTN (hypertension) CVD (cardiovascular disease) Diabetes mellitus HIV (human immunodeficiency virus infection) Hx of CABG Substance use disorder Mother Mental health disorder Brother Substance use disorder Sister No problems noted. Son Neuroblastoma Mental health disorder Paternal Aunt Substance use disorder Paternal Uncle Substance use disorder Social History Housing: House Alcohol intake: never Patient Tobacco Use Status: Never used Tobacco e-Cigarette/Vaping Use: Never Used service: No Current occupational status: employed Cognitive needs: No Hearing needs: No Vision needs: Yes Questionnaire Thrive Questionnaire Date Thrive assessed: 02/21/25 EDITA-7 AMB Questionnaire EDITA-7 Date EDITA - 7 assessed: 08/26/24 Source: Developed by Drs. Clifford Parish, Mary Jo Adorno, Martin Santizo and colleagues, with an educational néstor from [employer]. Physical exam (Primary Care) Tobacco/Smoking Status: Tobacco use Status Tobacco use date assessed 02/21/25 03/09/25 09:24 Patient Tobacco Use Status Never used Tobacco 03/09/25 09:24 e-Cigarette/Vaping Use Never Used 03/09/25 09:24 Thrive Assessment: Date of Thrive Assessment Date Thrive assessed 02/21/25 03/09/25 09:24 Telehealth Telehealth Telehealth Platform: [employer] Location of provider rendering services: practice address Location of patient: address on file Patient Identification confirmed using: Name, : Yes Telehealth method: video Patient verbally consented to treatment: Yes Patient verbally consented to billing insurance company: Yes Patient informed of any privacy concerns related to visit: Yes Minutes spent on Phone/Video with Pt.: 14 Coding Level of Care Code Tele Est Pt Level 3 (17868) Diagnoses Type 2 diabetes mellitus with other specified complication, without long-term current use of insulin E11.69 Diabetes mellitus chcf insulin use: without long term care administrator use Diabetes mellitus complication status: with other specified complication Headache syndrome G44.89 Assessment & Plan Assessment & Plan (1) Type 2 diabetes mellitus: Code(s): E11.9 - Type 2 diabetes mellitus without complications Category: Medical Qualifiers: Diabetes mellitus long term care administrator insulin use: without chcf use Diabetes mellitus complication status: with other specified complication Qualified Code(s): E11.69 - Type 2 diabetes mellitus with other specified complication (2) Headache syndrome: Code(s): G44.89 - Other headache syndrome Category: Medical Plan History - The patient is a 45-year-old female presenting with concerns regarding persistent headaches and elevated fasting blood sugar levels. - The patient reported experiencing severe headaches which worsened with the use of Topamax. The headaches have decreased in intensity since discontinuing the medication but still persist at a less severe level than previously experienced. Prior to the use of Topamax, the patient was taking Amitriptyline which had been effective until recently. - The patient reports issues with elevated fasting blood glucose levels, which remain high despite efforts to manage it. The reported fasting blood sugar levels were noted at 170 mg/dL and 150 mg/dL. - The patient recounted one instance of hypoglycemia with a blood sugar level dropping to 44 mg/dL at 7:00 PM on a Thursday evening, believed to have been triggered by physical activity. Medical History: - Migraine headache treated previously with Amitriptyline. - Type 2 Diabetes Mellitus with current issues in maintaining normal blood glucose levels. - Past medication use includes Topamax, recently discontinued due to worsening headache symptoms. Medications: - Discontinued Topamax due to adverse effects of increasing headache severity. - Taking oral medication for Type 2 Diabetes, dosing regimen: one tablet in the morning and one at night (2.5 mg each). Social History: - The patient indicates lifestyle modifications have been attempted to manage blood glucose levels, including dietary changes. - Lack of sleep is noted as a potential contributing factor to headaches. Diagnostic Results: - Labs: Fasting blood glucose levels recorded at 170 mg/dL and 150 mg/dL. - Labs: Notable hypoglycemic event with blood sugar dropping to 44 mg/dL. Problem List - Migraine Headache - Type 2 Diabetes Mellitus Patient Instructions - Continue taking the prescribed oral diabetes medication (2.5 mg) one tablet in the morning and one at night. - Start Amitriptyline 25 mg as directed: begin with half a tablet and adjust to a full tablet if needed. - Monitor for hypoglycemic episodes and keep a piece of candy accessible for rapid glucose raising. - Make note of any triggers or patterns in blood glucose variations and report during the next follow-up. - Maintain current lifestyle modifications and monitor impact on blood sugar levels. Medications: New amitriptyline 25 mg PO BEDTIME 90 tabs 0RF 90 days
== END 2025-03-09 11:54 | disposition home or self-care (01) ==
LOC: HO.HMCC 08:17
PROVIDERS: PCP Internal Medicine; Visit Provider Internal Medicine
DX: E11.69 Type 2 diabetes mellitus with other specified complication (principal); G44.89 Other headache syndrome

== ENCOUNTER 2025-05-22 07:32 | Outpatient (REF) | payer OTHER, SELFPAY ==
--- OUTSIDE RECORDS SUMMARY | 2025-05-22 07:36 | XMS_ITS | Data Portability ---
Author Organization [place] - [facility], Allergy Address [address] [place] [address] Care Team Providers Care Orthotic Finish Grinding Technician Name Role Phone PIERREHELEN Primary Care Provider [...] Missed: Dose Aware of Vial Test Notes: [email or web address] Not available 12/28/2024 16:59:31 01/04/2025 01/04/2025 Visit [...] Dose Aware of Vial Test Aware: Notes: [email or web address] Not available 01/25/2025 17:22:30 02/09/2025 02/09/2025 Visit [...] Name and Address Organization Details Recorded Time Bilateral disorder of Eustachia n tubes [id number] Active 2020 Other specified disorders of Eustachia n tube, bilateral ; Note: Date Diagnosed : 1 11:11 AM (H69.83) Not Available [facility]ly [facility] 4 03:18:18 Pain of right temporoma ndibular joint [id number] 010857 Active 2020 Arthralgi a of right temporoma ndibular joint; Note: Date Diagnosed : 1 11:48 AM (M26.621) Not Available [facility], [facility] 4 03:18:19 Acute sinusitis 95430731 Active 2021 Other acute sinusitis ; Note: Date Diagnosed : 04/11/2022 4:55 PM (J01.80) Not Available [facility] 4 03:18:19 Recurrent acute sinusitis 693696224 Active 2021 Other acute recurrent sinusitis ; Note: Date Diagnosed : 2 5:29 PM (J01.81) Not Available [facility] 4 03:18:19 Allergic rhinitis caused by pollen 48031323 Active 2022 Allergic rhinitis due to pollen; Note: Date Diagnosed : 09/26/2022 4:51 PM (J30.1) Not Available [facility] 03:18:19 Allergic rhinitis 92491554 Active 2023 Allergic rhinitis: Due to other [...] 2:03 PM (477.8) ; Start Date : 3 [...] ; Start Date : 3 Not Available [facility] 4 01:25:08 Perennial allergic rhinitis 197274827 Active 2023 KATHERINE CHENG [address] [facility], [place], [address] , [facility] - [facility] [place] 4 17:05:30 Acute maxillary sinusitis 16501425 Active 2023 GEO CASTILLO MD [address] [facility] [address],[address], [place], [address] , [facility] - [facility] [place] 4 16:53:35 Chronic sinusitis 69919157 Active 2023 GEO CASTILLO MD [address] [place], [place] [address],[address], [place], [address] , [facility] - [facility] [place] 4 15:10:31 Nasal congestio n 27374068 Active 2023 GERALDINE FARRAR MD [address] [place], [place] [address] [address], [place], [address] , [facility] - [facility] [place] 4 10:22:29 Atypical facial pain 39524303 Active 2023 GERALDINE FARRAR MD [address] [place] [address],[place] [address], [place], [address] , [facility] - [facility] [place] 4 21:56:24 Seasonal allergic rhinitis 292314064 Active 2023 GEO CASTILLO MD [address] [place], [place] [address] [address], [place], [address] , [facility] - [facility] [place] 4 07:59:00 Anterior epistaxis 132466529 Active 2024 GERALDINE FARRAR MD [address] [place], [place] [address] [address], [place], [address] , [facility] - [facility] [place] 5 09:42:15 Problem Notes None recorded. Procedures Surgical History Date Name Laterality Status Provider Name and Address Organization Details Recorded Time 02/10/20 Allergy Immunotherapy Injections completed KATHERINE CHENG [address] [facility] [address], [place], [address], [place] [facility] [place] 02/09/2025 13:37:57 01/26/20 25 Allergy Immunotherapy Injections completed CHETNA CRAVENA [address], [address], [place] [facility] [place] 01/25/2025 17:22:20 01/12/20 25 Allergy Immunotherapy Injections completed ABHIJEET DANIELS, RMA [address], [place], [address], [place] [facility] [place] 01/11/2025 16:28:14 01/05/20 25 Allergy Immunotherapy Injections completed ABHIJEET DIMASC RMA [address], [place], [address], [place] [facility] [place] 01/04/2025 17:27:15 12/29/19 25 Allergy Immunotherapy Injections completed THUY PEDROZA RMA [address], [address], [place] [facility] [place] 12/28/2024 16:57:02 12/22/19 25 Allergy Immunotherapy Injections completed ABHIJEET DANIELS RMA [address], [place], [address], [place] [facility] [place] 12/21/2024 16:11:27 12/07/19 25 Allergy Immunotherapy Injections completed THUY PEDROZA RMA [address], [address], [place] [facility] [place] 12/06/2024 12:10:36 11/24/19 25 Allergy Immunotherapy Injections completed ABHIJEET DANIELS RMA [address], [place], [address], [place] [facility] [place] 11/23/2024 16:51:46 11/17/19 25 Allergy Immunotherapy Injections completed THUY PEDROZA RMA [address], [address], [place] [facility] [place] 11/16/2024 17:21:42 11/02/19 25 Allergy Immunotherapy Injections completed ABHIJEET DIMASC, RMA [address], [place], [address], [place] [facility] [place] 11/01/2024 11:59:08 10/12/19 25 Allergy Immunotherapy Injections completed ELIAS LAL RN [address], [place], [address], [place] [facility] [place] 10/12/2024 17:39:46 10/07/19 25 Allergy Immunotherapy Injections completed ELIAS LAL RN [address] [facility] [address], [place], [address], [place] [facility] [place] 10/07/2024 11:24:17 09/28/19 25 Allergy Immunotherapy Injections completed ELIAS LAL RN [address] [facility] [address], [place], [address], [place] [facility] [place] 09/28/2024 17:15:28 09/21/19 25 Allergy Immunotherapy Injections completed KATHERINE CRAVEN [address],SAR[address] [facility], [place], [address], [place] [facility] [place] 09/21/2024 17:29:47 06/23/20 24 Allergy Immunotherapy Injections completed CHETNA CRAVENA [address] [facility], [place], [address], [place] [facility] [place] 06/23/2024 16:33:26 06/01/20 24 Allergy Immunotherapy Injections completed ABHIJEET DANIELS RMA [address], [place], [address], [place] [facility] [place] 06/01/2024 11:14:57 05/11/20 24 Allergy Immunotherapy Injections completed ABHIJEET DANIELS RMA [address], [place], [address], [place] [facility] [place] 05/11/2024 17:20:23 04/21/20 24 Allergy Immunotherapy Injections completed CHETNA CRAVENA [address], [address], [place] [facility] [place] 04/21/2024 16:20:17 04/13/20 24 Allergy Immunotherapy Injections completed ABHIJEET DANIELS RMA [address], [place], [address], [facility] - [facility] 04/13/2024 16:57:24 04/07/20 24 Allergy Immunotherapy Injections completed CHETNA CRAVEN 100 [facility],[address], [address], [facility] - [facility] 04/07/2024 16:25:04 03/02/20 24 Allergy Immunotherapy Injections completed ABHIJEET DANIELS [facility] 100 [facility],[address], [address], [facility] - [facility] 03/02/2024 14:30:05 02/25/20 24 Allergy Immunotherapy Injections completed ELIAS LAL RN 100 [facility],[address], [address], [facility] - [facility] 02/25/2024 15:26:18 01/19/20 24 Allergy Immunotherapy Injections completed THUY PEDROZA Bony [address] [place] [address],[address], [address], [facility] - [facility] 01/19/2024 15:42:11 12/30/19 24 Allergy Immunotherapy Injections completed ABHIJEET AGUEDALUIZ[address], [address], [facility] - [facility] 12/30/2023 17:05:54 Imaging Results None recorded. Procedure [...] mg capsule 05/30 completed Medicati on ID: [id number] D uration Value: 14 Brand Name: doxycycl [...] mg tablet 04/25 completed Medicati on ID: [id number] B rand Name: escitalo pram oxalate Send Method: E-Prescr ibed Sub s Allowed: subs OK Medic ationGen ericName : escitalo pram oxalate Not Available Not Available Not Available azelastin e 137 mcg-fluti casone 50 mcg/spray nasal spray [place] 2 sprays twice a day by intranas al route. 2023 active Not Available Not Available Not Avai lable Robertoleena 17.5 mcg/24 hr (up to 5 years) 19.5 mg intrauter ine device 04/25 completed Medicati on ID: [id number] B rand Name: Clive Send Method: E-Prescr [...] Diagnosis SNOMED-CT Code Diagnosis ICD10 Code Diagnosis IMO Codes Diagnosis Note 434 ELIAS LAL RN Allergy [address] [place] [address] [place] [address] 12/30/2023 17:04:11 01/01/2024 15:55:03 Perennial allergic rhinitis [id number] J30.89 2758 THUY PEDROZA [facility] Allergy [address] [place] [address] [place] [address] 01/19/2024 15:40:29 01/19/2024 16:16:57 Perennial allergic rhinitis 194324887 J30.89 7533 THUY PEDROZA [facility] Allergy [address] [place] [address] ite [address] [place] [address] 02/25/2024 14:05:43 02/25/2024 15:27:47 Perennial allergic rhinitis 933506288 J30.89 8313 ABHIJEET DIMAS [facility] Allergy [address] [place] [address],[place] ite [address] [place] [address] 03/02/2024 14:21:39 03/02/2024 14:30:52 Perennial allergic rhinitis 795360622 J30.89 [id number] THUY PEDROZA [facility] Allergy [address] [place] [address] [place] [address] 04/07/2024 15:37:38 04/08/2024 10:54:39 Perennial allergic rhinitis 931439228 J30.89 [id number] ABHIJEET DANIELS [facility] Allergy [address] [place] [address] [place], [place] [address] 04/13/2024 16:47:55 04/13/2024 17:01:37 Perennial allergic rhinitis 003437618 J30.89 [id number] ELIAS LAL RN Allergy [address] [place], [place] [address] [address] 04/21/2024 15:56:33 04/22/2024 10:43:15 Perennial allergic rhinitis 083418930 J30.89 [id number] GEO CASTILLO MD [facility] [address] [address] 04/26/2024 15:57:38 04/26/2024 16:59:19 Acute maxillary sinusitis 72973726 J01.00 she has acute sinusitis based on history. I will treat empiricall y with abx and prednisone . she will discuss with her PCP given her DM before starting prednisone . I discussed the risk of elevated blood sugars and avascular hip necrosis. Perennial allergic rhinitis 964992637 J30.89 The patient is benefiting from immunother apy and should continue. No local or systemic reactions. [id number] ABHIJEET DIMAS [facility] Allergy [address] [place] [address] 100 [place] [address] 05/11/2024 17:18:22 05/11/2024 17:23:23 Perennial allergic rhinitis 466416651 J30.89 [id number] GERALDINE FARRAR MD [facility] [address] [address] 06/01/2024 09:06:05 06/01/2024 10:25:38 Allergic rhinitis 30871019 J30.9 Nasal congestion 2847280 0 R09.81 Atypical facial pain 713 45592 G50.1 23469 ABHIJEET DIMAS [facility] Allergy [address] [place] [address] 100 [place] [address] 06/01/2024 11:13:32 06/01/2024 11:16:08 Perennial allergic rhinitis 598369892 J30.89 [id number] THUY PEDROZA [facility] Allergy [address] [place] [address] 100 [place] [address] 06/23/2024 16:31:52 06/24/2024 11:32:20 Perennial allergic rhinitis 145971282 J30.89 [id number] GEO CASTILLO MD [facility] on [address] [place] [address] 07/08/2024 07:55:18 07/08/2024 12:38:42 Seasonal allergic rhinitis 949136592 J30.2 I suggested she try azelastine which I sent to her pharmacy. If she does not improve we could consider repeating allergy testing. [id number] GERALDINE FARRAR MD [facility] [address] [address] 09/13/2024 08:27:19 09/13/2024 09:09:33 Atypical facial pain 17804071 G50.1 Anterior epistaxis 40565 4002 R04.0 Nasal congestion 1558625 0 R09.81 [id number] THUY PEDROZA [facility] Allergy [address] [place] [address] 09/21/2024 17:00:55 09/21/2024 17:30:24 Perennial allergic rhinitis 572234621 J30.89 [id number] THUY PEDROZA [facility] Allergy [address] [place] [address] 09/28/2024 17:10:30 09/28/2024 17:16:06 Perennial allergic rhinitis 255680880 J30.89 [id number] THUY PEDROZA [facility] Allergy [address] [place] [address] 10/07/2024 10:34:03 10/07/2024 11:24:52 Perennial allergic rhinitis 315549111 J30.89 [id number] ELIAS LAL RN Allergy [address] [place] [address] 10/12/2024 17:24:01 10/12/2024 17:40:04 Perennial allergic rhinitis 485365652 J30.89 [id number] [facility], [facility] Allergy 100 [facility],[place] [address] [place] [address] 11/01/2024 11:23:02 11/01/2024 11:26:18 Perennial allergic rhinitis 708411519 J30.89 [id number] THUY PEDROZA A Allergy 100 [facility],[place] [address] [place] [address] 11/16/2024 16:29:40 11/17/2024 15:30:44 Perennial allergic rhinitis 007995137 J30.89 00524 [facility], [facility] Allergy 100 [facility],[place] [address] [place] [address] 11/23/2024 16:30:51 11/23/2024 16:52:17 Perennial allergic rhinitis 473998046 J30.89 [id number] THUY PEDROZA A Allergy [address] [place] [address],[place] [address] [place] [address] 12/06/2024 11:15:57 12/06/2024 12:11:00 Perennial allergic rhinitis 167765978 J30.89 [id number] THUY PEDROZA A Allergy 100 [facility],[place] [address] [place] [address] 12/21/2024 15:58:11 12/21/2024 16:12:00 Perennial allergic rhinitis 951781993 J30.89 95478 THUY PEDROZA A Allergy 100 [facility],[place] [address] [place] [address] 12/28/2024 16:28:45 12/28/2024 17:00:22 Perennial allergic rhinitis 229835580 J30.89 [id number] [facility], [facility] Allergy 100 [facility],[place] [address] [place] [address] 01/04/2025 16:19:57 01/04/2025 17:27:46 Perennial allergic rhinitis 111103472 J30.89 [id number] [facility], [facility] Allergy 100 [facility],[place] [address] [place] [address] 01/11/2025 16:23:04 01/11/2025 16:28:34 Perennial allergic rhinitis 297117253 J30.89 [id number] ABHIJEET DANIELS, RMA Allergy 100 [facility],[place] [address] [place] [address] 01/25/2025 17:21:31 01/25/2025 17:23:02 Perennial allergic rhinitis 719125294 J30.89 [id number] ABHIJEET DANIELS, RMA Allergy 100 [facility],[place] [address] [place] [address] 02/09/2025 13:08:29 02/09/2025 13:38:59 Perennial allergic rhinitis 251705460 J30.89 Health Concerns Section Related Observation LastModified by Organization Detai ls LastModified Time None Recorded Concern Status LastModified by Organization Details LastModified Time None Recorded Advance Directives Directive None Recorded Payers Insurance Date Sequence Insurance Name Policy Number Policy Ruby Covered Member ID Ruby Member ID Guarantor Name 09/13/2024 1 [facility] PLAN (MEDICAID HMO) [id number] Fozia Pedroza [id number] Fozia Pedroza 02/09/2025 1 [facility] - [facility] (HMO) [id number] Fozai Pedroza [id number] Fozia Pedroza OBGyn Episode No OBEpisode recorded.
--- OUTSIDE RECORDS SUMMARY | 2025-05-22 07:36 | XMS_ITS | Clinical Summary ---
Author Organization [facility] Address [address] [place] [address] Phone Care Team Providers Care Food Sanitarian Name Role Phone Kezia Adkins MD Primary [...] YEARS) 1999 PAP SMEAR 2002 MAMMOGRAM 2021 INFLUENZA VACCINE (#1) 2025 COVID-19 VACCINE (2024-2 6 season) 2025 12/08/2020, 11/10/2020 SMOKING STATUS SCREENING (On ce [...] topic Medical Devices Not on file Insurance [facility] NON NSPG PCP [place] [employer] CONNECTORCARE [facility] NON NSPG PCP [employer] NON NSPG PCP S[employer] NON NSPG PCP [employer] NON NSPG PCP [employer] NON NSPG PCP [employer]VER [employer]CTORC[employer]LL[employer] NON NSPG PCP S[employer] NON NSPG PCP [employer] NON NSPG PCP [employer] Care Teams Food Sanitarian Relationship Specialty Start Date End Date Kezia Adkins MD [address] [place] [address] PCP - General Internal Medicine 09/08/19 Additional Source Comments The information contained in this document represents components of the legal health record. It is not the complete legal health record.[facility]
--- OUTSIDE RECORDS SUMMARY | 2025-05-22 07:36 | XMS_ITS | Clinical Summary ---
Author Organization [facility] [address] [facility] lding Address [address] [facility] [place] [address] Phone Care Team Providers Care Clinical Program Director Name Role Phone Adam Hernandez MD Primary Care Provider [phone] Allergies Active Allergy Reactions Criticality Noted Date [...] mgIndications:Depo-Provera contraceptive status 150 mg IM Once 05/15/2025 05/15/2025 Ende d Active Problems Problem Noted Date Diagnosed Date Diabetes mellitus ([facility] V24, [facility] V28) Abnormal mammogram 10/06/2019 Overview (06/01/2024): [...] Encounters Date Type Department Care Team Description 05/15/2025 11:00 AM EDT Clinical Support Obstetrics and Gynecology [address] [address] Depo-Provera contraceptive status (Primary Dx) from Last 3 Months Surgical History Surgery Date Site/Laterality Comments OVARIAN CYST REMOVAL 2015 PROCEDURE: [place] OVARIAN CYSTECTOMY UNI/BI OTHER SURGICAL HISTORY 2019 [...] drink = 0.6 oz pur e alcohol) Housing Instability Answer Date Recorde d Are you worried that in the next 2 months you may not have stable housing? No 05/08/2025 Food Access & Nutrition Answer Date Rec orded Do you have access to a vari ety of food including fruits and vegetables? Yes 05/08/2025 Access to Healthcare Answer Date Record ed Within the last 3 months, ho w many times did you visit the emergency department for your medical care? 0 05/08/2025 Health Literacy Answer Date Recorded How often do you need to hav e someone help you when you read instructions, pamphlets, or other written material from your doctor or pharmacy? Never 05/08/2025 Caregiver: How often do you need to have someone help you when you read instructions, pamphlets, or other written material from your doctor or pharmacy? Not on file 05/08/2025 Financial Risk Answer Date Recorded How hard is it for you to pa y for the very basics like food, housing, medical care, and air conditioning / heating? Not very hard 05/08/2025 Transportation Answer Date Recorded Has the lack of transportati on kept you from meetings, work, or from getting things needed for daily living? No Has the lack of transportati on kept you from medical appointments or from getting medications? No 05/08/2025 Social Isolation Answer Date Recorded How often do you feel lonely or isolated from th ose around you? Rarely 05/08/2025 Food Risk Answer Date Recorded Within the past 12 months we worried whether our food would run out before we got money to buy more. Never true 05/08/2025 Within the past 12 months th e food we bought just didn't last and we didn't have money to get more. Never true 05/08/2025 Dependent Care Answer Date Recorded Do you need help finding or paying for care for your loved ones. For example, child care leader or elderly care for an older adult? No 05/08/2025 Education Answer Date Recorded Do you think completing more education or training, like finishing a GED, going to college, or learning a trade, would be helpful for you? Patient declined 05/08/2025 Employment and Income Answer Date Recor ded During the last four weeks, have you been actively looking for work? No 05/08/2025 Living Situation Answer Date Recorded What is your living situation? Unrecognized valu e 05/08/2025 Comments No Sex and Gender Information Value Date Recorded Sex Assigned at Not on file Legal Sex Female 10:48 PM EST Gender Identity Not on file Sexual Orientation Not on file Obstetrics History Para Term AB IAB SAB Ectopic Multiple Livin g Live Births 1 Last Filed Vital Signs Vital Sign Reading Time Taken Comments Blood Pressure 124/88 05/15/2025 11:54 AM EDT Pulse 78 05/15/2025 11:54 AM EDT Temperature 36.1 C (97 F) 08/30/2024 [...] Care Team (Late st Contact Info) Description 08/09/2025 11:00 AM EST Office Visit Obstetrics & Gynecology - [address] [phone] Jessie Orellana, SHAE [address] [place] [phone] Health Maintenance Due Date Last Done Comments Diabetes: Annual GFR (Glomerular Filtration Rate) 1981 Diabetes: Annual Foot Exam 1991 Diabetes: Annual Retina Eye Exam 1991 Hepatitis B Vaccines (1 of 3 - 19+ 3-dose series) 02/24/2000 Pneumococcal Vaccine: Pediatrics (0 to 5 Years) and At-Risk Patients (6 to 49 Years) (1 of 2 - PCV) 02/24/2000 HPV Vaccines (1 - 3-dose SCDM series) 02/24/2008 Cholesterol Screening (Lipid Panel) 07/20/2022 Diabetes: Annual Urine Albumin-Creatinine Ratio (uACR) 07/30/2022 Diabetes: Blood Sugar Control Test (HGBA1C) 07/30/2022 COVID-19 Vaccine ( season) 2025 12/08/2020, 11/10/2020 Influenza Vaccine (#1) 2025 Social Influencers of Health Screening 05/08/2026 05/08/2025 Breast Cancer Screening 02/02/2027 02/03/20, 12/17/2022, 12/03/2021, Additional history exists Cervical Cancer Screening: HPV 01/09/2028 01/08/2023 DTaP,Tdap,and Td Vaccines (2 - Td or Tdap) 12/06/2034 12/06/2024 RSV Immunization Adult Patients (1 - 1-dose 75+ series) 02/24/2056 HIV Screening Completed 10/07/2021 Hepatitis C Screening Completed 10/07/2021 Depression Screening Completed 05/08/2025 HIB Vaccines Aged Out No longer eligi [...] year. [facility] [address], [address] -------- FINAL REPORT -------- Dictated By: Sher Zuluaga Dictated Date: 02/02/2025 15:48 ET Assigned Physician: Sher Zuluaga Reviewed and Electronically Signed By: Sher Zuluaga Signed Date: 02/02/2025 15:59 ET Workstation ID: [id number] Transcribed By: Self Edit Transcribed Date: 02/02/2025 15:48 ET Narrative 02/02/2025 3:59 PM EDT EXAM: SCREENING MAMMOGRAPHY, BILATERAL HISTORY: SCREENING. Family history of breast cancer, aunt, grandparent COMPARISON: 06/26/23, 12/23/22, 12/17/22, 12/03/21, 10/05/20 TECHNIQUE: Synthesized CC and MLO projections of each breast. Tomosynthesis of each breast in the CC and MLO projections. 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 TISSUE DENSITY: There are scattered [...] year. [facility]amm[facility] at [address], [address] -------- FINAL REPORT -------- Dictated By: Sher Zuluaga Dictated Date: 02/02/2025 15:48 ET Assigned Physician: Sher Zuluaga Reviewed and Electronically Signed By: Sher Zuluaga Signed Date: 02/02/2025 15:59 ET Workstation ID: [id number] Transcribed By: Self Edit Transcribed Date: 02/02/2025 15:48 ET us Self Referral Sppl IMG BI PROCEDURES Final Resul t * Cervical Cancer Screening: HPV (01/08/2023) Cervical Cancer Screening: HPV Negative, Abstracted Historical Provider HEALTH MAINTENANCE Final Result * HIV Screening (10/07/2021) Pathologist [facility] HIV Screening Abstracted Historical Provider HEALTH MAINTENANCE Final Result * Hepatitis C Screening (10/07/2021) Pathologist [facility] Hepatitis C Screening Abstracted Historical Provider HEALTH MAINTENANCE Final Result from Last 3 Months or Most Recently Relevant to Health Maintenance Insurance [place] [id number] [facility] [employer] Care Teams Clinical Program Director Relationship Specialty Start Date End Date Adam Hernandez MD [address] [facility] [place] [phone] PCP - General Internal Medicine 02/02/25
[2025-05-22 10:36] LABS: MANUAL DIFF FLAG NO
[2025-05-22 10:42] LABS: Hematocrit 39.0 % (37.0-47.0); Hemoglobin 12.8 g/dl (12.0-16.0); Imm Gran Abs Auto 0.02 X10*3/uL (0.00-0.03); Imm Gran Pct Auto 0.2 % (0.0-0.4); Lymphocytes Absolute Auto 2.3 X10*3/uL (1.2-4.9); Mean Corpuscular HGB Conc 32.8 g/dl (31.0-35.0); Mean Corpuscular Hemoglobin 29.4 pg (27.0-33.0); Mean Corpuscular Volume 89.4 fL (80.0-98.0); NRBC Abs Auto 0.000 X10*3/uL (0.0-0.012); NRBC Pct Auto 0.0 /100WBC (0.0-0.2); Platelet Count 429 X10*3/uL (160-400); Red Blood Count 4.36 X10*6/uL (4.20-5.50); White Blood Count 8.1 X10*3/uL (4.8-10.8)
[2025-05-22 10:54] LABS: Alanine Aminotransferase 18 U/L (0-31); Albumin Level 4.6 g/dL (3.5-5.0); Alkaline Phosphatase 61 U/L (39-117); Anion Gap 13 (12-20); Aspartate Amino Transferase 20 U/L (5-31); Blood Urea Nitrogen 14 mg/dL (9-16); Calcium 9.6 mg/dL (8.4-10.2); Carbon Dioxide 24 mmol/L (22-29); Chloride 106 mmol/L (96-108); Cholesterol 175 mg/dL (<200); Estimated Glomerular Filt Rate > 60; HDL Cholesterol 38 mg/dL (>40); Potassium 4.9 mmol/L (3.3-5.1); Sodium 138 mmol/L (135-145); Total Protein 7.9 g/dL (6.5-8.0); Triglycerides 93 mg/dL (<150)
[2025-05-22 11:24] LABS: Vitamin B12 318 pg/mL (200-900)
[2025-05-22 11:33] LABS: Microalbum/Creatinine Ratio Ur 4.5 ug/mg cr (<30)
[2025-05-28 08:14] LABS: Vitamin D 25-OH, D2 <4 ng/mL; Vitamin D 25-OH, D3 25 ng/mL; Vitamin D 25-OH, Total 25 ng/mL (30-100)
== END 2025-05-22 07:33 | disposition home or self-care (01) ==
LOC: HO.HMGCLDS 07:32
PROVIDERS: PCP Internal Medicine; Visit Provider Internal Medicine
DX: Z00.01 Encounter for general adult medical examination with abnormal findings (principal); E11.69 Type 2 diabetes mellitus with other specified complication; G43.119 Migraine with aura, intractable, without status migrainosus
CPT/HCPCS: 36415; 80053; 80061; 82043; 82306; 82570; 82607; 83036; 85025

== ENCOUNTER 2025-05-23 13:47 | Emergency (ER) | payer OTHER, SELFPAY ==
[2025-05-23 13:57] VITALS: BP 136/90; PULSE 94; O2SAT 99
[2025-05-23 14:11] VITALS: BP 129/54; PULSE 94; RESP 18; TEMP 36.9; O2SAT 100; BMI 25.6
[2025-05-23 14:21] LABS: Glucose, Whole Blood 260 mg/dL (60-115)
--- NOTE | 2025-05-23 14:21 | ED.GENADULT ---
HPI - General Adult General Chief complaint: General Medical Stated complaint: headache, numbness of extremities, poc 243 Time Seen by Provider: 05/23/25 13:56 Source: patient, EMS and old records reviewed Mode of arrival: EMS Limitations: no limitations History of Present Illness ED Provider: KALPANA AQUINO narrative: 45 yo female with PMH of DM - on metformin and off glipizide x 1 week ran out, migraines, depression. 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 She started to feel weird around 1 - she felt all of her ext shaking dizziness tingling in feet and hand. She denies stress. Her BS has been in the 200s. She states she feels like this when her sugar is low. She is anxious and tearful on arrival. No recent URI, diarrhea, vomiting, travel. MD complaint: numbness/tingling Onset (ago): hour(s) (1pm) Location: left, right, upper extremity and lower extremity Radiation: non-radiation Severity: moderate Quality: other Relieving factors: none Exacerbating factors: none Associated symptoms: denies other symptoms Treatments prior to arrival: none Related Data Home Medications ?Medication ?Instructions ?Recorded ?Confirmed epinephrine 0.3 mg/0.3 mL IM 10/07/22 03/09/25 injection, auto-injector azelastine 137 mcg-fluticasone 50 2 spray intranasal BID 08/26/24 03/09/25 mcg/spray nasal spray Previous Rx's ?Medication ?Instructions ?Recorded cholecalciferol (vitamin D3) 25 25 mcg PO DAILY 90 days #90 caps 08/26/24 mcg (1,000 unit) capsule cyanocobalamin (vitamin B-12) 1,000 mcg PO DAILY 90 days #90 tabs 08/26/24 1,000 mcg tablet sumatriptan succinate 50 mg tablet 50 mg PO ONCE PRN migraine 08/26/24 headache 30 days #10 tabs glipizide 2.5 mg tablet See Rx Instructions PO BID 90 days 12/06/24 #270 tabs metformin 1,000 mg tablet 1,000 mg PO BID 90 days #180 tabs 12/06/24 triamcinolone acetonide 0.1 % 1 appl topical DAILY 30 days #80 12/06/24 topical cream grams hydrocortisone 2.5 % topical cream 1 appl topical BID PRN itching 01/18/25 hemmorodial 30 days #30 grams topiramate 25 mg tablet (Topamax) 25 mg PO BEDTIME 90 days #90 tabs 02/21/25 amitriptyline 25 mg tablet 25 mg PO BEDTIME 90 days #90 tabs 03/09/25 glipizide 2.5 mg tablet See Rx Instructions .Route 05/23/25 .COMPLEX #60 tabs Allergies Allergy/AdvReac Type Severity Reaction Status Date / Time shellfish derived (SHELLFISH Allergy Intermediate HIVES Verified 05/23/25 14:11 DERIVED) Seasonal Allergies Allergy Mild Sneezing Verified 05/23/25 14:11 Shellfish Allergy Unknown HIVES Uncoded 05/23/25 14:11 Review of Systems Review of Systems: Constitutional : No Fever, No Chills, No Fatigue ENT/Mouth : No sore throat, No Rhinorrhea Eyes: No Eye Pain, No Swelling, No Redness Cardiovascular : No Chest Pain, No SOB, No Dyspnea on Exertion Respiratory : No Cough, No Sputum Gastrointestinal : No Nausea, No Vomiting, No Diarrhea, No abdominal Pain Genitourinary : No Dysuria, No Urinary Frequency, No Hematuria, Musculoskeletal : No joint pain, No Myalgias, No Joint Swelling Skin : No Skin Lesions, No rash Neuro : No Weakness, pos Numbness, pos Dizziness, no Headache All other systems reviewed and are negative PMFSH Past Medical History Attestation statement: The following information was validated with the patient. Source: old records reviewed Medical History Sore throat Upper respiratory tract infection Diabetes mellitus, type 2 Constipation by delayed colonic transit Headache syndrome Encounter to establish care Surgical History History of ovarian cyst Family History Family History Father HTN (hypertension) CVD (cardiovascular disease) Diabetes mellitus HIV (human immunodeficiency virus infection) Hx of CABG Substance use disorder Mother Mental health disorder Brother Substance use disorder Sister No problems noted. Son Neuroblastoma Mental health disorder Paternal Aunt Substance use disorder Paternal Uncle Substance use disorder Social History Social History Housing: House Alcohol intake: never Patient Tobacco Use Status: Never used Tobacco e-Cigarette/Vaping Use: Never Used Advance Directives: No Advance Directives Information Provided: Yes Do you have a plan to hurt others: No Plan service: No Current occupational status: employed Cognitive needs: No Hearing needs: No Vision needs: Yes Physical Exam ED Vital Signs: Vital Signs - 24 hr 05/23/25 14:11 Temperature 98.5 F Pulse Rate 94 Respiratory Rate 18 Blood Pressure 129/54 L Pulse Oximetry 100 Oxygen Delivery Method Room Air BMI result Body Mass Index 25.6 Appearance: Alert. Oriented X3. No acute distress. anxious hyperventilating Eyes: Pupils equal, round and reactive to light. ENT: Pharynx normal. Neck: Normal inspection. Neck supple. CVS: Normal heart rate and rhythm. Pulses normal. Respiratory: No respiratory distress. Breath sounds normal. Abdomen: Soft and nontender. Skin: Skin warm and dry. Normal skin color. Normal skin turgor. Extremities: No lower extremity edema. No calf ttp Neuro: Oriented X 3. No motor deficit. No sensory deficit. CN2-12 intact Medications Administered Discontinued Medications Generic Name Dose Route Start Last Admin Trade Name Freq PRN Reason Stop Dose Admin Lorazepam 1 mg 05/23/25 14:09 05/23/25 14:28 Lorazepam 1 Mg Tablet PO 05/23/25 14:10 1 mg ONCE ONE Administration Medical Decision Making Medical Decision Making [facility] Narrative: 45 yo female with PMH of DM - on metformin and off glipizide x 1 week ran out, migraines, depression now here with hands and feet paresthesias and a stable BS, she has no focal deficits she is not toxic and well appearing. Differential Diagnosis Differential Diagnoses: The differential diagnosis associated with the presentation includes lyte abnormality, anxiety, panic attack, hypoglycemia Admission/Observation Consideration of admission/observation: Escalation of care including admission/observation considered feels better with medications, stable for DC Lab Data [facility] Lab Attestation statement: I reviewed the patient's lab results. 05/23/25 14:17 05/23/25 14:17 Labs: Lab Results 05/23/25 05/23/25 Range/Units 14:16 14:17 WBC 9.4 (4.8-10.8) X10*3/uL RBC 4.17 L (4.20-5.50) X10*6/uL Hgb 12.2 (12.0-16.0) g/dl Hct 35.6 L (37.0-47.0) % MCV 85.4 (80.0-98.0) fL MCH 29.3 (27.0-33.0) pg MCHC 34.3 (31.0-35.0) g/dl RDW 12.7 (11.0-16.0) % Plt Count 432 H (160-400) X10*3/uL MPV 10.0 (9.4-12.3) fL Immature Gran % (Auto) 0.3 (0.0-0.4) % Neut % (Auto) 61.1 (45-73) % Lymph % (Auto) 33.0 (20-40) % Haywood % (Auto) 4.8 (2-11) % Eos % (Auto) 0.4 (0-4) % Baso % (Auto) 0.4 (0-2) % Lymph # (Auto) 3.1 (1.2-4.9) X10*3/uL Haywood # (Auto) 0.5 (0.1-1.2) X10*3/uL Eos # (Auto) 0.0 (0.0-0.4) X10*3/uL Baso # (Auto) 0.0 (0.0-0.2) X10*3/uL Abs Immat Gran (auto) 0.03 (0.00-0.03) X10*3/uL Absolute Neuts (auto) 5.7 (2.0-8.3) x10*3/uL Absolute Nucleated RBC 0.000 (0.0-0.012) X10*3/uL Nucleated RBC % (auto) 0.0 (0.0-0.2) /100WBC Sodium 137 (135-145) mmol/L Potassium 3.7 D (3.3-5.1) mmol/L Chloride 107 (96-108) mmol/L Carbon Dioxide 18 L (22-29) mmol/L Anion Gap 16 (12-20) BUN 13 (9-16) mg/dL Creatinine 0.74 (0.5-1.4) mg/dL Estim Creat Clear Calc 84.9 Estimated GFR > 60 POC Glucose 260 H (60-115) mg/dL Random Glucose 279 H (60-115) mg/dL Calcium 10.1 (8.4-10.2) mg/dL Magnesium 1.6 (1.6-2.6) mg/dL Total Bilirubin 0.4 (0.0-1.0) mg/dL Direct Bilirubin 0.1 (0.0-0.5) mg/dL AST 20 (5-31) U/L ALT 15 (0-31) U/L Alkaline Phosphatase 61 (39-117) U/L Total Protein 7.9 (6.5-8.0) g/dL Albumin 4.6 (3.5-5.0) g/dL TSH 2.14 (0.32-4.0) uIU/mL Independent Historian Clinical information obtained from an independent historian. History obtained from or confirmed by: EMS External Record Review External record reviewed: Outpatient record Prescription Management I considered prescription management with: Other Discharge Plan Discharge Clinical Impression: Paresthesia Patient Disposition: Home, Self-Care Instructions: Paresthesia (ED) Additional Instructions: labs reassuring rest and stay hydrated thyroid normal return for any worsening symptoms or concerns. Prescriptions: New glipizide 2.5 mg tablet See Rx Instructions .ROUTE .COMPLEX Qty: 60 1RF Rx Instructions: 2.5mg in the AM and 5mg at night No Action epinephrine 0.3 mg/0.3 mL auto-injector IM azelastine-fluticasone 137-50 mcg/spray spray,non-aerosol 2 spray intranasal BID cyanocobalamin (vitamin B-12) 1,000 mcg tablet 1,000 mcg PO DAILY 90 Days Qty: 90 0RF cholecalciferol (vitamin D3) 25 mcg (1,000 unit) capsule 25 mcg PO DAILY 90 Days Qty: 90 1RF sumatriptan succinate 50 mg tablet 50 mg PO ONCE PRN (Reason: migraine headache) 30 Days Qty: 10 1RF Rx Instructions: do not exceed 4 doses per 24 hrs topiramate [Topamax] 25 mg tablet 25 mg PO BEDTIME 90 Days Qty: 90 0RF metformin 1,000 mg tablet 1,000 mg PO BID 90 Days Qty: 180 1RF triamcinolone acetonide 0.1 % cream 1 appl topical DAILY 30 Days Qty: 80 0RF glipizide 2.5 mg tablet See Rx Instructions PO BID 90 Days Qty: 270 1RF Rx Instructions: orally 2 times a day; 2 tabs at night and one in am hydrocortisone 2.5 % cream 1 appl topical BID PRN (Reason: itching hemmorodial ) 30 Days Qty: 30 0RF amitriptyline 25 mg tablet 25 mg PO BEDTIME 90 Days Qty: 90 0RF Print Language: Setswana
[2025-05-23 14:23] LABS: MANUAL DIFF FLAG NO
[2025-05-23 14:27] LABS: Hematocrit 35.6 % (37.0-47.0); Hemoglobin 12.2 g/dl (12.0-16.0); Imm Gran Abs Auto 0.03 X10*3/uL (0.00-0.03); Imm Gran Pct Auto 0.3 % (0.0-0.4); Lymphocytes Absolute Auto 3.1 X10*3/uL (1.2-4.9); Mean Corpuscular HGB Conc 34.3 g/dl (31.0-35.0); Mean Corpuscular Hemoglobin 29.3 pg (27.0-33.0); Mean Corpuscular Volume 85.4 fL (80.0-98.0); NRBC Abs Auto 0.000 X10*3/uL (0.0-0.012); NRBC Pct Auto 0.0 /100WBC (0.0-0.2); Platelet Count 432 X10*3/uL (160-400); Red Blood Count 4.17 X10*6/uL (4.20-5.50); White Blood Count 9.4 X10*3/uL (4.8-10.8)
[2025-05-23 14:47] LABS: Alanine Aminotransferase 15 U/L (0-31); Albumin Level 4.6 g/dL (3.5-5.0); Alkaline Phosphatase 61 U/L (39-117); Anion Gap 16 (12-20); Aspartate Amino Transferase 20 U/L (5-31); Blood Urea Nitrogen 13 mg/dL (9-16); Calcium 10.1 mg/dL (8.4-10.2); Carbon Dioxide 18 mmol/L (22-29); Chloride 107 mmol/L (96-108); Creatinine Clr Calc Pharmacy 84.9; Estimated Glomerular Filt Rate > 60; Magnesium 1.6 mg/dL (1.6-2.6); Potassium 3.7 mmol/L (3.3-5.1); Sodium 137 mmol/L (135-145); Total Protein 7.9 g/dL (6.5-8.0)
[2025-05-23 15:19] VITALS: BP 112/73; PULSE 72; RESP 17; TEMP 36.9; O2SAT 95
--- OUTSIDE RECORDS SUMMARY | 2025-05-23 17:45 | XMS_ITS | Clinical Summary ---
Author Organization [facility] [address] [facility] lding Address [address] [facility] [place] [address] Phone Care Team Providers Care Marketing Editor Name Role Phone Adam Hernandez MD Primary Care Provider [phone] Allergies Active Allergy Reactions Criticality Noted Date [...] Problem Noted Date Diagnosed Date Diabetes mellitus ([facility] V24, [facility] V28) Abnormal mammogram 10/06/2019 Overview (06/01/2024): 09/2019 [...] AM EDT Clinical Support Obstetrics and Gynecology [address] [phone] Depo-Provera contraceptive status (Primary Dx) from Last 3 Months Surgical History Surgery Date Site/Laterality Comments OVARIAN CYST REMOVAL 2015 PROCEDURE: [place] OVARIAN CYSTECTOMY UNI/BI OTHER SURGICAL HISTORY 2019 [...] for your loved ones. For example, child abuse worker or elderly care for an older adult? [...] EST Office Visit Obstetrics & Gynecology - [address] [phone] Jessie Orellana, SHAE [address] [place] [phone] Health Maintenance Due Date Last Done Comments [...] year. [facility] [address], [address] -------- FINAL REPORT -------- Dictated By: Sher Zuluaga Dictated Date: 02/02/2025 15:48 ET Assigned Physician: Sher Zuluaga Reviewed and Electronically Signed By: Sher Zuluaga Signed Date: 02/02/2025 15:59 ET Workstation ID: [id number] Transcribed By: Self Edit Transcribed Date: 02/02/2025 15:48 ET Narrative 02/02/2025 3:59 PM EDT EXAM: SCREENING MAMMOGRAPHY, BILATERAL HISTORY: SCREENING. Family history of breast cancer, aunt, grandparent COMPARISON: 06/26/23, 12/23/22, 12/17/22, 12/03/21, 10/05/20 TECHNIQUE: Synthesized CC and MLO projections of each breast. Tomosynthesis of each breast in the CC and MLO projections. 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 TISSUE DENSITY: There are [...] year. [facility]amm[facility] at [address], [address] -------- FINAL REPORT -------- Dictated By: Sher Zuluaga Dictated Date: 02/02/2025 15:48 ET Assigned Physician: Sher Zuluaga Reviewed and Electronically Signed By: Sher Zuluaga Signed Date: 02/02/2025 15:59 ET Workstation ID: [id number] Transcribed By: Self Edit Transcribed Date: 02/02/2025 15:48 ET us Self Referral Sppl IMG BI PROCEDURES Final Resul t * Cervical Cancer Screening: HPV (01/08/2023) Cervical Cancer Screening: HPV Negative, Abstracted Historical Provider HEALTH MAINTENANCE Final Result * HIV Screening (10/07/2021) Pathologist [facility] HIV Screening Abstracted Historical Provider HEALTH MAINTENANCE Final Result * Hepatitis C Screening (10/07/2021) Pathologist [facility] Hepatitis C Screening Abstracted Historical Provider HEALTH MAINTENANCE Final Result from Last 3 Months or Most Recently Relevant to Health Maintenance Insurance [place] [id number] [facility] [employer] PLAN Care Teams Marketing Editor Relationship Specialty Start Date End Date Adam Hernandez MD [address] [place] [phone] PCP - General Internal Medicine 02/02/25
--- OUTSIDE RECORDS SUMMARY | 2025-05-23 17:45 | XMS_ITS | Clinical Summary ---
Author Organization [facility] Address [address] [place] [phone] Phone Care Team Providers Care Integrated Circuit Ic Layout Designer Name Role Phone Kezia Adkins MD Primary [...] topic Medical Devices Not on file Insurance [facility] NON NSPG PCP [place] [employer] CONNECTORCARE [facility] NON NSPG PCP [place] CONNE[employer]CARE [employer] NON NSPG PCP S[employer] CONNE[employer]CARE [employer] NON NSPG PCP [employer]IL[employer]ITY CONNECTORCARE [employer] NON NSPG PCP SILVER [employer]ARITY CONNECTORCARE [employer] NON NSPG PCP SILVER CLARITY CONNECTORCARE [employer] NON NSPG PCP SILVER CLARITY CONNECTORCARE [employer] NON NSPG PCP SILVER [employer]ARITY CONNECTORCARE [employer] NON NSPG PCP SILVER [employer]ARITY CONNECTORCARE Care Teams Integrated Circuit Ic Layout Designer Relationship Specialty Start Date End Date Kezia Adkins MD [address] [place] [address] PCP - General Internal Medicine 09/08/19 Additional Source Comments The information contained in this document represents components of the legal health record. It is not the complete legal health record.[facility]
== END 2025-05-23 15:30 | disposition home or self-care (01) ==
PROVIDERS: Emergency Provider Emergency Medicine; PCP Internal Medicine
DX: R20.2 Paresthesia of skin (principal); E11.9 Type 2 diabetes mellitus without complications; Z79.84 Long term (current) use of oral hypoglycemic drugs
CPT/HCPCS: 36415; 80048; 80076; 82947; 83735; 84443; 85025; 99282; 99283

== ENCOUNTER 2025-05-25 08:54 | Outpatient (AMB) | payer OTHER, SELFPAY ==
--- NOTE | 2025-05-25 09:41 | A.OFFPC_ITS ---
Intake Visit Reasons: lab review Allergies shellfish derived (SHELLFISH DERIVED) Allergy (Intermediate, Verified 05/23/25 14:11) HIVES Seasonal Allergies Allergy (Mild, Verified 05/23/25 14:11) Sneezing Shellfish Allergy (Unknown, Uncoded 05/23/25 14:11) HIVES Medication List - Last Reconciled 05/25/25 by Adam Hernandez MD amitriptyline 25 mg PO BEDTIME 90 days azelastine-fluticasone 137-50 mcg/spray 2 sprays intranasal BID cholecalciferol (vitamin D3) 25 mcg PO DAILY 90 days cyanocobalamin (vitamin B-12) 1,000 mcg PO DAILY 90 days epinephrine IM glipizide 2.5mg in the AM and 5mg at night glipizide orally 2 times a day; 2 tabs at night and one in am 90 days hydrocortisone 2.5% 1 appl topical BID PRN 30 days metformin 1,000 mg PO BID 90 days sumatriptan succinate 50 mg PO ONCE PRN 30 days topiramate (Topamax) 25 mg PO BEDTIME 90 days triamcinolone acetonide 0.1% 1 appl topical DAILY 30 days Tobacco use date assessed: 02/21/25 Dental Screening Dental Screen Date: 01/18/25 HPI lab review HPI Details History of Present Illness The patient is a 45-year-old female presenting with diabetes management issues. Diabetes Mellitus: - Reports an incident where her blood gl ucose level reached 260 mg/dL, which prompted an emergency room visit. - Indicated a lapse in taking antifungal medication due to financial constraints, contributing to higher blood glucose readings. - Discussed episodes of shaking, sweatin g, and feeling unwell, despite not having a hypoglycemic episode. - Mentioned previous prescriptions of me tformin without significant efficacy in controlling blood glucose. - Currently on glipizide, taking 2.5 mg once in the morning and once at night to stabilize glucose levels. - Accounted challenges with morning bloo d glucose levels consistently being elevated, despite her efforts to maintain early evening meals and medication regimen. - Expressed apprehension about being soraya soledad on insulin due to family history of insulin dependency. Medical History: - Diabetes Mellitus: Managed with glipiz remigio; metformin previously trialed without successful glucose control. Medications: - Glipizide 2.5 mg, administered one tab let in the morning and one tablet at night for diabetes mellitus. - Metformin, reported as previously inef fective for glucose management. Social History: - Experiences difficulty affording medic ations, impacting treatment adherence. - Engages in early meal planning, eating no later than 6:00 PM, to manage blood glucose levels. - Expresses significant concern over pot ential progression to insulin therapy. Family History: - Reports multiple family members, inclu ding mother and sister, are insulin- dependent diabetics. Problem List - Diabetes Mellitus - Medication Non-Adherence due to Financ ial Constraints Plan - Continue current regimen of glipizide 2.5 mg, one tablet in the morning and one in the evening. - Explore cost-effective alternatives fo r medication purchases through different pharmacies - Monitor morning blood glucose levels c losely; adjust evening dosing if levels exceed 180 mg/dL. - Discontinue metformin with careful obs ervation for changes in blood glucose levels, ready to adjust glipizide dosing if necessary. - Arrange for referral to a dietitian fo r nutritional counseling to better manage diabetes without transitioning to insulin therapy. - Plan to review blood glucose readings and overall diabetes management in three months. Review of Systems - General: No fever no chills - Neurological: No headaches no dizziness - Ear nose throat: No sore throat no hearing difficulty no ear pain - Cardiovascular: No syncope, no chest pain, no palpitations - Gastrointestinal: No nausea vomiting or diarrhea [facility] Medical History Sore throat Upper respiratory tract infection Diabetes mellitus, type 2 Constipation by delayed colonic transit Headache syndrome Encounter to establish care Surgical History History of ovarian cyst Family History Father HTN (hypertension) CVD (cardiovascular disease) Diabetes mellitus HIV (human immunodeficiency virus infection) Hx of CABG Substance use disorder Mother Mental health disorder Brother Substance use disorder Sister No problems noted. Son Neuroblastoma Mental health disorder Paternal Aunt Substance use disorder Paternal Uncle Substance use disorder Social History Housing: House Alcohol intake: never Patient Tobacco Use Status: Never used Tobacco e-Cigarette/Vaping Use: Never Used service: No Current occupational status: employed Cognitive needs: No Hearing needs: No Vision needs: Yes Questionnaire Thrive Questionnaire Date Thrive assessed: 02/21/25 EDITA-7 AMB Questionnaire EDITA-7 Date EDITA - 7 assessed: 08/26/24 Source: Developed by Drs. Clifford Parish, Mary Jo Adorno, Martin Santizo and colleagues, with an educational néstor from [employer]. Physical exam (Primary Care) Tobacco/Smoking Status: Tobacco use Status Tobacco use date assessed 02/21/25 05/25/25 09:42 Patient Tobacco Use Status Never used Tobacco 05/25/25 09:42 e-Cigarette/Vaping Use Never Used 05/25/25 09:42 Thrive Assessment: Date of Thrive Assessment Date Thrive assessed 02/21/25 05/25/25 09:42 Telehealth Telehealth Telehealth Platform: [employer] Location of provider rendering services: practice address Location of patient: address on file Patient Identification confirmed using: Name, : Yes Telehealth method: video Patient verbally consented to treatment: Yes Patient verbally consented to billing insurance company: Yes Patient informed of any privacy concerns related to visit: Yes Minutes spent on Phone/Video with Pt.: 14 Coding Level of Care Code Tele Est Pt Level 3 (82916) Diagnoses Type 2 diabetes mellitus with other specified complication, without long-term current use of insulin E11.69 Diabetes mellitus complication status: with other specified complication Diabetes mellitus continuous churn buttermaker insulin use: without continuous churn buttermaker use Assessment & Plan Assessment & Plan (1) Type 2 diabetes mellitus: Code(s): E11.9 - Type 2 diabetes mellitus without complications Category: Medical Qualifiers: Diabetes mellitus complication status: with other specified complication Diabetes mellitus assisted insulin use: without continuous churn buttermaker use Qualified Code(s): E11.69 - Type 2 diabetes mellitus with other specified complication Plan History of Present Illness The patient is a 45-year-old female presenting with diabetes management issues. Diabetes Mellitus: - Reports an incident where her blood glucose level reached 260 mg/dL, which prompted an emergency room visit. - Indicated a lapse in taking antifungal medication due to financial constraints, contributing to higher blood glucose readings. - Discussed episodes of shaking, sweating, and feeling unwell, despite not having a hypoglycemic episode. - Mentioned previous prescriptions of metformin without significant efficacy in controlling blood glucose. - Currently on glipizide, taking 2.5 mg once in the morning and once at night to stabilize glucose levels. - Accounted challenges with morning blood glucose levels consistently being elevated, despite her efforts to maintain early evening meals and medication regimen. - Expressed apprehension about being placed on insulin due to family history of insulin dependency. Medical History: - Diabetes Mellitus: Managed with glipizide; metformin previously trialed without successful glucose control. Medications: - Glipizide 2.5 mg, administered one tablet in the morning and one tablet at night for diabetes mellitus. - Metformin, reported as previously ineffective for glucose management. Social History: - Experiences difficulty affording medications, impacting treatment adherence. - Engages in early meal planning, eating no later than 6:00 PM, to manage blood glucose levels. - Expresses significant concern over potential progression to insulin therapy. Family History: - Reports multiple family members, including mother and sister, are insulin- dependent diabetics. Problem List - Diabetes Mellitus - Medication Non-Adherence due to Financial Constraints Plan - Continue current regimen of glipizide 2.5 mg, one tablet in the morning and one in the evening. - Explore cost-effective alternatives for medication purchases through different pharmacies - Monitor morning blood glucose levels closely; adjust evening dosing if levels exceed 180 mg/dL. - Discontinue metformin with careful observation for changes in blood glucose levels, ready to adjust glipizide dosing if necessary. - Arrange for referral to a dietitian for nutritional counseling to better m anage diabetes without transitioning to insulin therapy. - Plan to review blood glucose readings and overall diabetes management in three months. Orders: Orders Microalbumin, Random (w Creat) 3 Months . - Type 2 diabetes mellitus with other specified complication, F32.2 - Major depressive disorder, single episode, severe without psychotic features, G43.119 - Migraine with aura, intractable, without status migrainosus Vitamin D 25-OH (D2 and D3) 3 Months . - Type 2 diabetes mellitus with other specified complication, F32.2 - Major depressive disorder, single episode, severe without psychotic features, G43.119 - Migraine with aura, intractable, without status migrainosus LDL Cholesterol Direct 3 Months . - Type 2 diabetes mellitus with other specified complication, F32.2 - Major depressive disorder, single episode, severe without psychotic features, G43.119 - Migraine with aura, intractable, without status migrainosus Hemoglobin A1c 3 Months E11.69 - Type 2 diabetes mellitus with other specified complication, F32.2 - Major depressive disorder, single episode, severe without psychotic features, G43.119 - Migraine with aura, intractable, without status migrainosus Complete Blood Count Auto Diff 3 Months E11. - Type 2 diabetes mellitus with other specified complication, F32.2 - Major depressive disorder, single episode, severe without psychotic features, G43.119 - Migraine with aura, intractable, without status migrainosus Comprehensive Met. Panel 3 Months . - Type 2 diabetes mellitus with other specified complication, F32.2 - Major depressive disorder, single episode, severe without psychotic features, G43.119 - Migraine with aura, intractable, without status migrainosus Vitamin B12 3 Months E11. - Type 2 diabetes mellitus with other specified complication, F32.2 - Major depressive disorder, single episode, severe without psychotic features, G43.119 - Migraine with aura, intractable, without status migrainosus Referrals [employer] Installer Nutrition Referral . - Type 2 diabetes mellitus with other specified complication
== END 2025-05-25 11:41 | disposition home or self-care (01) ==
LOC: HO.HMCC 08:54
PROVIDERS: PCP Internal Medicine; Visit Provider Internal Medicine
DX: E11.69 Type 2 diabetes mellitus with other specified complication (principal)

== ENCOUNTER 2025-06-14 15:27 | Outpatient (AMB) | payer OTHER, SELFPAY ==
--- NOTE | 2025-06-14 15:43 | AM.OFFWIN_ITS ---
Intake Vital Signs 06/14/25 15:44 Height 5 ft 2 in Weight 141 lb BMI 25.8 BP 116/80 Blood Pressure Location Lt brachial Position Sitting Pulse 77 Pulse Source Pulse Oximeter Temp 97.6 F Temp Source Oral Pulse Oximetry (%) 99 Oxygen Delivery Method Room Air Intake Visit Reasons: EP Sinus pain/ears for 1 month Intake Note: Stiffly nose and ears, headache and ache over the maxilla sinuses started since April and got severe gradually. She has got mild cough started last week. Patient Tobacco Use Status: Never used Tobacco Allergies shellfish derived (SHELLFISH DERIVED) Allergy (Intermediate, Verified 06/14/25 15:51) HIVES Seasonal Allergies Allergy (Mild, Verified 06/14/25 15:51) Sneezing Shellfish Allergy (Unknown, Uncoded 05/23/25 14:11) HIVES Do you need a note to return to daycare/school/sports/work: No HPI HPI Comments History of Present Illness Details History - The patient is a 45-year-old female pr esenting with sinusitis symptoms. - History of Problem: The patient report s that her symptoms began in April with allergies that progressed to a cold and then to sinusitis. - Symptoms include a stuffy nose with t hick yellow discharge, ear pressure more pronounced on the left side, and nighttime nasal obstruction. - The condition has persisted for over a month, with recent onset of coughing. - The patient has tried [id number]-[id number]-[id number] medications such as Mucinex and nasal irrigation with a neti pot using distilled water, but these have not been effective. - The patient is diabetic, which may com plicate her treatment options. 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 Review of Systems - Respiratory: Reports nasal congestion and thick yellow nasal discharge. Denies shortness of breath. - Ears: Reports pressure, more on the le ft side, without pain. - General: Denies fever, reports feeling cold often. All systems reviewed and are unremarkable except as noted in HPI Physical Exam General: Cooperative, healthy appearing, comfortable and no acute distress Orientation/consciousness: Patient oriented x3 Limitations: No limitations Head: Normal to inspection Ears: Hearing grossly normal bilaterally, external ears normal, EAC's normal bilaterally and TM's normal bilaterally, but patient reports a lot of pressure, more on the left than on the right Nose: Normal external nose present, Normal nares present and No nasal discharge present, but patient reports stuffy nose with thick yellow discharge Face and sinus: Normal facial exam, sinuses tender, especially in the axillary region Mouth: Normal oral and palatal mucosa present and moist mucous membranes Throat: tonsils normal, no exudates, uvula midline, posterior oropharynx erythema Eyes: Appearance normal, both eyes and all related structures Neck: Normal visual inspection, full ROM Respiratory: Normal respiratory effort, able to speak in complete sentences. Skin: No rashes or lesions noted Neuro: Patient oriented x3 Extremities: Normal to inspection and Yes no clubbing, cyanosis or edema [facility] Medical History Sore throat Upper respiratory tract infection Diabetes mellitus, type 2 Constipation by delayed colonic transit Headache syndrome Encounter to establish care Surgical History History of ovarian cyst Family History Father HTN (hypertension) CVD (cardiovascular disease) Diabetes mellitus HIV (human immunodeficiency virus infection) Hx of CABG Substance use disorder Mother Mental health disorder Brother Substance use disorder Sister No problems noted. Son Neuroblastoma Mental health disorder Paternal Aunt Substance use disorder Paternal Uncle Substance use disorder Social History Housing: House Alcohol intake: never Patient Tobacco Use Status: Never used Tobacco e-Cigarette/Vaping Use: Never Used service: No Current occupational status: employed Cognitive needs: No Hearing needs: No Vision needs: Yes Physical Exam Vital Signs: Last Vital Signs Temp 97.6 F 06/14/25 15:44 Pulse 77 06/14/25 15:44 BP 116/80 06/14/25 15:44 Pulse Ox 99 06/14/25 15:44 Oxygen Delivery Method Room Air 06/14/25 15:44 BMI result Body Mass Index 25.8 Assessment & Plan Assessment & Plan (1) Sinusitis: Code(s): J32.9 - Chronic sinusitis, unspecified Qualifiers: Chronicity: acute Recurrence: non-recurrent Sinusitis location: maxillary Qualified Code(s): J01.00 - Acute maxillary sinusitis, unspecified Plan: Plan Patient was informed and verbally consented to the use of an ambient scribe for clinic note documentation during this visit. - VSS, pt well appearing and PE remarkable for maxillary sinus tenderness bilaterally. - Prescribe Augmentin for bacterial sinusitis, as symptoms have persisted beyond typical viral duration. - Prescribe a low dose of prednisone to alleviate sinus pressure, with instructions to start the following day to avoid sleep disruption. - Monitor blood glucose levels closely due to potential impact of prednisone on glycemic control. Medications: New amoxicillin-pot clavulanate 875-125 mg 1 tab PO Q12H 14 tabs 0RF prednisone 20 mg PO DAILY 5 tabs 0RF Coding Level of Care Code Est Pt Level 3 (79341) Diagnoses Acute non-recurrent maxillary sinusitis J01.00 Chronicity: acute Recurrence: non-recurrent Sinusitis location: maxillary
[2025-06-14 15:44] VITALS: BP 116/80; PULSE 77; TEMP 36.4; O2SAT 99; BMI 25.8
--- OUTSIDE RECORDS SUMMARY | 2025-06-14 19:48 | XMS_ITS | Clinical Summary ---
Author Organization [facility] Address [address] [place] [id number] Phone Care Team Providers Care All Terrain Vehicle Technician Name Role Phone Kezia Adkins MD Primary [...] topic Medical Devices Not on file Insurance [facility] NON NSPG PCP NEW LOTHROP CLARITY CONNECTORCARE [facility] NON NSPG PCP SILVER CLARITY CONNECTORCARE [employer] NON NSPG PCP SILVER CLARITY CONNECTORCARE [employer] NON NSPG PCP SILVER CLARITY CONNECTORCARE [employer] NON NSPG PCP SILVER CLARITY CONNECTORCARE [employer] NON NSPG PCP SILVER CLARITY CONNECTORCARE [employer] NON NSPG PCP SILVER CLARITY CONNECTORCARE [employer] NON NSPG PCP SILVER CLARITY CONNECTORCARE [employer] NON NSPG PCP SILVER CLARITY CONNECTORCARE Care Teams All Terrain Vehicle Technician Relationship Specialty Start Date End Date Kezia Adkins MD [address] [place] [address] PCP - General Internal Medicine 09/08/19 Additional Source Comments The information contained in this document represents components of the legal health record. It is not the complete legal health record.[facility]
--- OUTSIDE RECORDS SUMMARY | 2025-06-14 19:48 | XMS_ITS | Clinical Summary ---
Author Organization [facility] [address] [facility] lding Address [address] [facility] [place] [address] Phone Care Team Providers Care Blade Boner Name Role Phone Adam Hernandez MD Primary Care Provider [phone] Allergies Active Allergy Reactions Criticality Noted Date [...] Problem Noted Date Diagnosed Date Diabetes mellitus ([facility] V24, [facility] V28) Abnormal mammogram 10/06/2019 Overview [...] AM EDT Clinical Support Obstetrics and Gynecology [address] [address] Depo-Provera contraceptive status (Primary Dx) from Last 3 Months Surgical History Surgery Date Site/Laterality Comments OVARIAN CYST REMOVAL 2015 PROCEDURE: SD OVARIAN CYSTECTOMY UNI/BI OTHER SURGICAL HISTORY 2019 [...] care for your loved ones. For example, director of early childhood education or elderly care for an older adult? [...] EST Office Visit Obstetrics & Gynecology - [address] [address] Jessie Orellana, [address] [phone] Health Maintenance Due Date Last Done Comments [...] Control Test (HGBA1C) 07/30/2022 COVID-19 Vaccine ( - season) 2025 12/08/2020, 11/10/2020 Influenza Vaccine (#1) [...] Encounter for screening mammogram for breast cancer HM HPV Routine 01/08/2023 HEPATITIS C SCREENING Routine [...] year. [facility]amm[facility] [address], [address] -------- FINAL REPORT -------- Dictated By: Sher Zuluaga Dictated Date: 02/02/2025 15:48 ET Assigned Physician: Sher Zuluaga Reviewed and Electronically Signed By: Sher Zuluaga Signed Date: 02/02/2025 15:59 ET Workstation ID: [id number] Transcribed By: Self Edit Transcribed Date: 02/02/2025 15:48 ET Narrative 02/02/2025 3:59 PM EDT EXAM: SCREENING MAMMOGRAPHY, BILATERAL HISTORY: SCREENING. Family history of breast cancer, aunt, grandparent COMPARISON: 06/26/23, 12/23/22, 12/17/22, 12/03/21, 10/05/20 TECHNIQUE: Synthesized CC and MLO projections of each breast. Tomosynthesis of each breast in the CC and MLO projections. ADDITIONAL IMAGING: None Computer-aided detection was employed with the iCAD ProFound AI 3-D. TISSUE DENSITY: There are [...] None Computer-aided detection was employed with the Best [employer] Reviewed AI 3-D. TISSUE DENSITY: There are scattered [...] year. Mammography location: [facility] at [address], [address] -------- FINAL REPORT -------- Dictated By: Sher Zuluaga Dictated Date: 02/02/2025 15:48 ET Assigned Physician: Sher Zuluaga Reviewed and Electronically Signed By: Sher Zuluaga Signed Date: 02/02/2025 15:59 ET Workstation ID: [id number] Transcribed By: Self Edit Transcribed Date: 02/02/2025 15:48 ET us Self Referral Sppl IMG BI PROCEDURES Final Resul t * Cervical Cancer Screening: HPV (01/08/2023) Pathologist [facility] Cervical Cancer Screening: HPV Negative, Abstracted Historical Provider HEALTH MAINTENANCE Final Result * HIV Screening (10/07/2021) Pathologist [facility] HIV Screening Abstracted Historical Provider HEALTH MAINTENANCE Final Result * Hepatitis C Screening (10/07/2021) Pathologist [facility] Hepatitis C Screening Abstracted Historical Provider HEALTH MAINTENANCE Final Result from Last 3 Months or Most Recently Relevant to Health Maintenance Insurance [place] [id number] [facility] [facility] Care Teams Blade Boner Relationship Specialty Start Date End Date Adam Hernandez MD [address] [facility] [place] [phone] PCP - General Internal Medicine 02/02/25
--- OUTSIDE RECORDS SUMMARY | 2025-06-14 19:48 | XMS_ITS | Data Portability ---
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 Name Role Phone PIERREHELEN Primary Care Provider [...] Missed: Dose Aware of Vial Test Notes: [email or web address] Not available 12/28/2024 16:59:31 01/04/2025 01/04/2025 Visit [...] Dose Aware of Vial Test Aware: Notes: [email or web address] Not available 01/25/2025 17:22:30 02/09/2025 02/09/2025 Visit [...] Time Bilateral disorder of Eustachia n tubes [id number] Active 2020 Other specified disorders of Eustachia n tube, bilateral ; Note: Date Diagnosed : 1 11:11 AM (H69.83) Not Available [facility] 4 03:18:18 Pain of right temporoma ndibular joint [id number] 335714 Active 2020 Arthralgi a of right temporoma ndibular joint; Note: Date Diagnosed : 1 11:48 AM (M26.621) Not Available [facility] 4 03:18:19 Acute sinusitis 39993016 Active 2021 Other acute sinusitis ; Note: Date Diagnosed : 04/11/2022 4:55 PM (J01.80) Not Available [facility] 4 03:18:19 Recurrent acute sinusitis 796596403 Active 2021 Other acute recurrent sinusitis ; Note: Date Diagnosed : 2 5:29 PM (J01.81) Not Available [facility] 4 03:18:19 Allergic rhinitis caused by pollen 02236165 Active 2022 Allergic rhinitis due to pollen; Note: Date Diagnosed : 09/26/2022 4:51 PM (J30.1) Not Available [facility] 03:18:19 Allergic rhinitis 44496041 Active 2023 Allergic rhinitis: Due to other [...] Available [facility] 4 01:25:08 Perennial allergic rhinitis 055938439 Active 2023 KATHERINE CHENG [address] [facility], [place], [address] , [facility] - [facility] 4 17:05:30 Acute maxillary sinusitis 97858116 Active 2023 GEO CASTILLO MD [address] [facility] [address], [place], [address] , [facility] - [facility] 4 16:53:35 Chronic sinusitis 10678885 Active 2023 GEO CASTILLO MD [address] [place], [place] [address]on [address], [place], [address] , [facility] - [facility] 4 15:10:31 Nasal congestio n 35982633 Active 2023 GERALDINE FARRAR MD [address] [place], [place] [address]on [place] [address], [place], [address] , [facility] - [facility] 4 10:22:29 Atypical facial pain 43466546 Active 2023 GERALDINE FARRAR MD [address] [place] [address],[place] [address], [place], [address] , [facility] - [facility] 4 21:56:24 Seasonal allergic rhinitis 488507974 Active 2023 GEO CASTILLO MD [address] [place], [place] [address]on [place] [address], [place], [address] , [facility] - [facility] 4 07:59:00 Anterior epistaxis 208260747 Active 2024 GERALDINE FARRAR MD [address] [place], [place] [address]on [place] [address], [place], [address] , [facility] - [facility] 5 09:42:15 Problem Notes None recorded. Procedures Surgical History Date Name Laterality Status Provider Name and Address Organization Details Recorded Time 02/10/20 Allergy Immunotherapy Injections completed KATHERINE CHENG [address] [facility], [place], [address], [place] [facility] 02/09/2025 13:37:57 01/26/20 25 Allergy Immunotherapy Injections completed CHETNA CRAVENA [address], [place], [address], [place] [facility] 01/25/2025 17:22:20 01/12/20 25 Allergy Immunotherapy Injections completed ABHIJEET DANIELS, RMA [address], [place], [address], [place] [facility] 01/11/2025 16:28:14 01/05/20 25 Allergy Immunotherapy Injections completed ABHIJEET DIMASC RMA [address], [place], [address], [place] [facility] 01/04/2025 17:27:15 12/29/19 25 Allergy Immunotherapy Injections completed THUY PEDROZA RMA [address], [place], [address], [place] [facility] 12/28/2024 16:57:02 12/22/19 25 Allergy Immunotherapy Injections completed ABHIJEET DANIELS RMA [address], [place], [address], [place] [facility] 12/21/2024 16:11:27 12/07/19 25 Allergy Immunotherapy Injections completed THUY PEDROZA RMA [address], [place], [address], [place] [facility] 12/06/2024 12:10:36 11/24/19 25 Allergy Immunotherapy Injections completed ABHIJEET DANIELS RMA [address], [place], [address], [place] [facility] 11/23/2024 16:51:46 11/17/19 25 Allergy Immunotherapy Injections completed THUY PEDROZA RMA [address], [place], [address], [place] [facility] 11/16/2024 17:21:42 11/02/19 25 Allergy Immunotherapy Injections completed ABHIJEET DIMASC, RMA [address], [place], [address], [place] [facility] 11/01/2024 11:59:08 10/12/19 25 Allergy Immunotherapy Injections completed ELIAS LAL RN [address], [place], [address], [place] [facility] 10/12/2024 17:39:46 10/07/19 25 Allergy Immunotherapy Injections completed ELIAS LAL RN [address], [place], [address], [place] [facility] 10/07/2024 11:24:17 09/28/19 25 Allergy Immunotherapy Injections completed ELIAS LAL RN [address], [place], [address], [place] [facility] 09/28/2024 17:15:28 09/21/19 25 Allergy Immunotherapy Injections completed KATHERINE CRAVEN [address],SARAH [facility], [place], [address], [place] [facility] 09/21/2024 17:29:47 06/23/20 24 Allergy Immunotherapy Injections completed CHETNA CRAVENA [address],SARAH [facility], [place], [address], [place] [facility] 06/23/2024 16:33:26 06/01/20 24 Allergy Immunotherapy Injections completed ABHIJEET DANIELS RMA [address], [place], [address], [place] [facility] 06/01/2024 11:14:57 05/11/20 24 Allergy Immunotherapy Injections completed ABHIJEET DANIELS RMA [address], [place], [address], [place] [facility] 05/11/2024 17:20:23 04/21/20 24 Allergy Immunotherapy Injections completed CHETNA CRAVENA [address], [place], [address], [place] [facility] 04/21/2024 16:20:17 04/13/20 24 Allergy Immunotherapy Injections completed ABHIJEET DANIELS RMA [address], [place], [address], [facility] - [facility] 04/13/2024 16:57:24 04/07/20 24 Allergy Immunotherapy Injections completed CHETNA CRAVEN 100 [facility],[address], [address], [facility] - [facility] 04/07/2024 16:25:04 03/02/20 24 Allergy Immunotherapy Injections completed ABHIJEET DANIELS [facility] 100 [facility],[address], [address], [facility] - [facility] 03/02/2024 14:30:05 02/25/20 24 Allergy Immunotherapy Injections completed ELIAS LAL RN 100 [facility],[address], [address], [facility] - [facility] 02/25/2024 15:26:18 01/19/20 24 Allergy Immunotherapy Injections completed THUY PEDROZA Bony [address] [place] [address],[address], [address], [facility] - [facility] 01/19/2024 15:42:11 12/30/19 24 Allergy Immunotherapy Injections completed ABHIJEET AGUEDALUIZ[address], [address], [facility] - [facility] 12/30/2023 17:05:54 Imaging Results None recorded. Procedure [...] mg capsule 05/30 completed Medicati on ID: [id number] D uration Value: 14 Brand Name: doxycycl [...] mg tablet 04/25 completed Medicati on ID: [id number] B rand Name: escitalo pram oxalate Send Method: E-Prescr ibed Sub s Allowed: subs OK Medic ationGen ericName : escitalo pram oxalate Not Available Not Available Not Available azelastin e 137 mcg-fluti casone 50 mcg/spray nasal spray [place] 2 sprays twice a day by intranas al route. 2023 active Not Available Not Available Not Avai lable Robertoleena 17.5 mcg/24 hr (up to 5 years) 19.5 mg intrauter ine device 04/25 completed Medicati on ID: [id number] B rand Name: Clive Send Method: E-Prescr [...] Diagnosis Note 434 ELIAS LAL RN Allergy [address] [place] [address] it 100 [place] [address] 12/30/2023 17:04:11 01/01/2024 15:55:03 Perennial allergic rhinitis [id number] J30.89 2758 THUY PEDROZA [facility] [address] [place] [address] ite [address] [place] [address] 01/19/2024 15:40:29 01/19/2024 16:16:57 Perennial allergic rhinitis [id number] J30.89 7533 THUY PEDROZA [facility] [address] [place] [address] it[address] 100 [place] [address] 02/25/2024 14:05:43 02/25/2024 15:27:47 Perennial allergic rhinitis [id number] J30.89 8313 ABHIJEET DIMAS [facility] [address] [place] [address],[place] 100 [place] [address] 03/02/2024 14:21:39 03/02/2024 14:30:52 Perennial allergic rhinitis [id number] J30.89 [id number] THUY PEDROZA [facility] [address] [place] [address] it[address] 100 [place] [address] 04/07/2024 15:37:38 04/08/2024 10:54:39 Perennial allergic rhinitis [id number] J30.89 61725 ABHIJEET DANIELS [facility] [address] [place] [address] Doris [place], [place] [address] 04/13/2024 16:47:55 04/13/2024 17:01:37 Perennial allergic rhinitis 559157912 J30.89 69083 ELIAS LAL RN Allergy [address] [place], [place] [address] [address] 04/21/2024 15:56:33 04/22/2024 10:43:15 Perennial allergic rhinitis [id number] J30.89 [id number] GEO CASTILLO MD [facility] [address] [address] 04/26/2024 15:57:38 04/26/2024 16:59:19 Acute maxillary sinusitis 34630579 J01.00 she has acute sinusitis based on history. I will treat empiricall y with abx and prednisone . she will discuss with her PCP given her DM before starting prednisone . I discussed the risk of elevated blood sugars and avascular hip necrosis. Perennial allergic rhinitis 333160298 J30.89 The patient is benefiting from immunother apy and should continue. No local or systemic reactions. 33466 ABHIJEET DIMAS [facility] [address] [place] [address] 100 [place] [address] 05/11/2024 17:18:22 05/11/2024 17:23:23 Perennial allergic rhinitis [id number] J30.89 34500 GERALDINE FARRAR MD [facility] [address] [address] 06/01/2024 09:06:05 06/01/2024 10:25:38 Allergic rhinitis 00570412 J30.9 Nasal congestion 1925151 0 R09.81 Atypical facial pain 713 55822 G50.1 [id number] ABHIJEET DIMAS [facility] [address] [place] [address] 100 [place] [address] 06/01/2024 11:13:32 06/01/2024 11:16:08 Perennial allergic rhinitis [id number] J30.89 42530 THUY PEDROZA [facility] [address] [place] [address] 100 [place] [address] 06/23/2024 16:31:52 06/24/2024 11:32:20 Perennial allergic rhinitis 917756354 J30.89 [id number] GEO CASTILLO MD [facility] [address] [place] [address] 07/08/2024 07:55:18 07/08/2024 12:38:42 Seasonal allergic rhinitis 564916712 J30.2 I suggested she try azelastine which I sent to her pharmacy. If she does not improve we could consider repeating allergy testing. [address]3970 GERALDINE FARRAR MD [facility] [address] [address] 09/13/2024 08:27:19 09/13/2024 09:09:33 Atypical facial pain 99344404 G50.1 Anterior epistaxis 08309 4002 R04.0 Nasal congestion 4056578 0 R09.81 63031 THUY PEDROZA [facility] [address] [place] [address] 09/21/2024 17:00:55 09/21/2024 17:30:24 Perennial allergic rhinitis 053203658 J30.89 70436 THUY PEDROZA [facility] [address] [place] [address] 09/28/2024 17:10:30 09/28/2024 17:16:06 Perennial allergic rhinitis 329787193 J30.89 40678 THUY PEDROZA [facility] [address] [place] [address] 10/07/2024 10:34:03 10/07/2024 11:24:52 Perennial allergic rhinitis 529912548 J30.89 95844 ELIAS LAL RN Allergy [address] [place] [address] 10/12/2024 17:24:01 10/12/2024 17:40:04 Perennial allergic rhinitis 396074234 J30.89 [address]3938 [facility], RMA Allergy 100 [facility],[place] [address] [place] [address] 11/01/2024 11:23:02 11/01/2024 11:26:18 Perennial allergic rhinitis 700785389 J30.89 36341 THUY PEDROZA A Allergy 100 [facility],[place] [address] [place] [address] 11/16/2024 16:29:40 11/17/2024 15:30:44 Perennial allergic rhinitis 529463924 J30.89 05453 [facility], RMA Allergy 100 [facility],[place] [address] [place] [address] 11/23/2024 16:30:51 11/23/2024 16:52:17 Perennial allergic rhinitis 341449990 J30.89 36043 THUY PEDROZA A Allergy [address] [place] [address],[place] [address] [place] [address] 12/06/2024 11:15:57 12/06/2024 12:11:00 Perennial allergic rhinitis 012532141 J30.89 66689 THUY PEDROZA A Allergy 100 [facility],[place] [address] [place] [address] 12/21/2024 15:58:11 12/21/2024 16:12:00 Perennial allergic rhinitis 941560683 J30.89 01365 THUY PEDROZA A Allergy 100 [facility],[place] [address] [place] [address] 12/28/2024 16:28:45 12/28/2024 17:00:22 Perennial allergic rhinitis [id number] J30.89 [id number] [facility], RMA Allergy 100 [facility],[place] [address] [place] [address] 01/04/2025 16:19:57 01/04/2025 17:27:46 Perennial allergic rhinitis 280404370 J30.89 94750 [facility], RMA Allergy 100 [facility],[place] [address] [place] [address] 01/11/2025 16:23:04 01/11/2025 16:28:34 Perennial allergic rhinitis 166231315 J30.89 84010 ABHIJEET DANIELS, RMA Allergy 100 [facility],[place] [address] [place] [address] 01/25/2025 17:21:31 01/25/2025 17:23:02 Perennial allergic rhinitis 274145756 J30.89 51695 ABHIJEET DANIELS, RMA Allergy 100 [facility],[place] [address] [place] [address] 02/09/2025 13:08:29 02/09/2025 13:38:59 Perennial allergic rhinitis 882581855 J30.89 Health Concerns Section Related Observation LastModified by Organization Detai ls LastModified Time None Recorded Concern Status LastModified by Organization Details LastModified Time None Recorded Advance Directives Directive None Recorded Payers Insurance Date Sequence Insurance Name Policy Number Policy Ruby Covered Member ID Ruby Member ID Guarantor Name 09/13/2024 1 [facility] PLAN (MEDICAID HMO) [id number] Fozia Pedroza [id number] Fozia Pedroza 02/09/2025 1 [facility] PLAN - [facility] (HMO) [id number] Fozia Pedroza [id number] Fozia Pedroza OBGyn Episode No OBEpisode recorded.
== END 2025-06-14 16:51 | disposition home or self-care (01) ==
PROVIDERS: PCP Internal Medicine; Visit Provider Physician Assistant
DX: J01.00 Acute maxillary sinusitis, unspecified (principal)

== ENCOUNTER → 2025-06-14 15:27 | Outpatient (BNVA) | payer OTHER, SELFPAY | PROVIDERS: PCP Internal Medicine; Visit Provider Physician Assistant | DX: J01.00 Acute maxillary sinusitis, unspecified (principal) | CPT/HCPCS: 99212 ==

== ENCOUNTER 2025-07-03 07:54 | Outpatient (AMB) | payer OTHER, SELFPAY ==
--- NOTE | 2025-07-03 08:16 | AM.OFFWIN_ITS ---
Intake Vital Signs 07/03/25 08:17 Height 5 ft 2 in Weight 141 lb BMI 25.8 BP 100/62 Blood Pressure Location Lt brachial Position Sitting Respiration 16 Pulse 77 Pulse Source Pulse Oximeter Temp 98.1 F Temp Source Oral Pulse Oximetry (%) 98 Oxygen Delivery Method Room Air Intake Visit Reasons: EP-lt ear pain Intake Note: Pt is here today c/o Lt ear pain and nasal congestion Patient Tobacco Use Status: Never used Tobacco Crystal Mounter Required: No Allergies shellfish derived (SHELLFISH DERIVED) Allergy (Intermediate, Verified 07/03/25 08:20) HIVES Seasonal Allergies Allergy (Mild, Verified 07/03/25 08:20) Sneezing Shellfish Allergy (Unknown, Uncoded 07/03/25 08:20) HIVES HPI HPI Comments History of Present Illness Details History - The patient is a 45-year-old female pr esenting with muffled hearing and ear pain. - The patient was treated for a sinus in [facility] two weeks ago with Augmentin, and now reports hearing difficulties with robotic sounds in the ear. - She has a history of ear infections wi th tympanostomy tubes placed during childhood. - She was having sinus pain and pressure which resolved after the antibiotics. - She was having pressure and pain in th e ears bilaterally. - Now the left ear is worse than the rig ht. - She denies fever, chills, SHANNON, hearing loss, discharge, bleeding, CP, SOB, abd pain, n/v/d, sore throat, cough, or sick contacts. Physical Exam General: Cooperative, healthy appearing, comfortable, no acute distress and well developed Head: Normal to inspection Ears: External ears normal bilaterally. No tragus or mastoid tenderness noted. Tympanic membranes ruptures bilaterally. No discharge or blood in the canals. Face and sinus: Normal facial exam. No TTP of the sinuses. Neck: Normal visual inspection. Full ROM. No lymphadenopathy noted. Respiratory: Normal respiratory effort and able to speak in complete sentences. Clear to auscultation bilaterally. No w/r/r noted. Cardiac: RRR, no m/r/g noted. Normal S1 and S2 noted. Skin: No rashes or lesions noted Neuro: Patient oriented x3 Patient was informed and verbally consented to the use of an ambient scribe for clinic note documentation during this visit. [facility] Medical History Sore throat Upper respiratory tract infection Diabetes mellitus, type 2 Constipation by delayed colonic transit Headache syndrome Encounter to establish care Surgical History History of ovarian cyst Family History Father HTN (hypertension) CVD (cardiovascular disease) Diabetes mellitus HIV (human immunodeficiency virus infection) Hx of CABG Substance use disorder Mother Mental health disorder Brother Substance use disorder Sister No problems noted. Son Neuroblastoma Mental health disorder Paternal Aunt Substance use disorder Paternal Uncle Substance use disorder Social History Housing: House Alcohol intake: never Patient Tobacco Use Status: Never used Tobacco e-Cigarette/Vaping Use: Never Used service: No Current occupational status: employed Cognitive needs: No Hearing needs: No Vision needs: Yes Review of Systems Const All systems reviewed & are unremarkable except as noted in HPI and below Physical Exam Vital Signs: Last Vital Signs Temp 98.1 F 07/03/25 08:17 Pulse 77 07/03/25 08:17 Resp 16 07/03/25 08:17 BP 100/62 07/03/25 08:17 Pulse Ox 98 07/03/25 08:17 Oxygen Delivery Method Room Air 07/03/25 08:17 BMI result Body Mass Index 25.8 Assessment & Plan Assessment & Plan (1) Otalgia: Code(s): H92.09 - Otalgia, unspecified ear Qualifiers: Laterality: bilateral Qualified Code(s): H92.03 - Otalgia, bilateral (2) Tympanic membrane rupture: Code(s): H72.90 - Unspecified perforation of tympanic membrane, unspecified ear Qualifiers: Laterality: bilateral Qualified Code(s): H72.93 - Unspecified perforation of tympanic membrane, bilateral Plan Plan - Tylenol or motrin as needed for pain or fever. - Prescribe cefpodoxime for seven days, twice daily, as an alternative to Augmentin. - Finished Augmentin for a sinus infection a few days ago. - Advise the patient to avoid water and Q-tips in the ears to prevent further damage. - Recommend follow-up with an ENT specialist for further evaluation of tympanic membrane perforations. Medications: New cefpodoxime must administer with a meal/food 200 mg PO Q12H 14 tabs 0RF Coding Level of Care Code Est Pt Level 3 (83820) Diagnoses Otalgia of both ears H92.03 Laterality: bilateral Perforation of both tympanic membranes H72.93 Laterality: bilateral
[2025-07-03 08:17] VITALS: BP 100/62; PULSE 77; RESP 16; TEMP 36.7; O2SAT 98; BMI 25.8
== END 2025-07-03 08:52 | disposition home or self-care (01) ==
PROVIDERS: PCP Internal Medicine; Visit Provider Physician Assistant Medical
DX: H92.03 Otalgia, bilateral (principal); H72.93 Unspecified perforation of tympanic membrane, bilateral

== ENCOUNTER → 2025-07-03 07:54 | Outpatient (BNVA) | payer OTHER, SELFPAY | PROVIDERS: PCP Internal Medicine; Visit Provider Physician Assistant Medical | DX: H72.93 Unspecified perforation of tympanic membrane, bilateral (principal); H92.03 Otalgia, bilateral | CPT/HCPCS: 99212 ==